=== PATIENT | female | born 1945 ===

== ENCOUNTER 2020-05-19 09:57 | Outpatient (REF) | payer MEDICARE, MEDICAID, SELFPAY ==
--- NOTE | 2020-05-19 | MR_ITS ---
EXAMINATION: MR ABDOMEN WITHOUT AND WITH CONTRAST CLINICAL INFORMATION: Cirrhosis. Rule out liver lesion. COMPARISON: Previous abdominal MRI September 2019 and previous abdominal ultrasounds most recent August 2019 CT of the abdomen and pelvis August 2010 TECHNIQUE: MR abdomen was performed without and with use of 7.5 mL intravenous Gadavist gadolinium contrast. Postcontrast images are performed in multiphase dynamic sequences. Imaging was performed in 3 planes. FINDINGS: LUNG BASES: The visualized lung bases are unremarkable. LIVER, GALLBLADDER, AND BILIARY TREE: The liver appears cirrhotic. There is a heterogeneous overall enhancement of the liver suggestive of cirrhosis. There may be several tiny liver cysts that are stable. The area of peripheral early arterial phase enhancement in the posterior lateral segment of the left lobe axial image 27 series 105 post contrast and appears slightly smaller compared to 2 x 1.7 cm on previous exam. Again, no signal abnormality is seen on precontrast sequences and this is is not appreciated on later postcontrast sequences. This again demonstrates rapid washout not seen on later postcontrast sequences and no definite pseudocapsule or enhancement. The small lesion in the anterior peripheral lateral segment of the left lobe of the liver on September 2019 exam is no longer appreciated. There is similar-appearing 5 mm small area of early arterial enhancement in the peripheral anterior segment of the right lobe of the liver axial image 37 series series 105 that is stable and has similar signal and contrast enhancement pattern to the previously mentioned liver lesion. No new liver lesion is seen. There is increased signal seen dependently in the gallbladder questionable for sludge or possible tiny gallstones. The gallbladder bladder does not appear distended. The gallbladder wall is normal in the gallbladder is normal in size. There is no intra or extrahepatic biliary duct dilatation. PANCREAS: Unremarkable. SPLEEN: Normal. ADRENAL GLANDS: Normal. KIDNEYS AND URETERS: The kidneys are normal in size, shape, and enhance symmetrically. No hydronephrosis. No perinephric stranding. GASTROINTESTINAL TRACT: No bowel obstruction. No ascites or fluid collection. ABDOMINAL WALL: No significant hernia is appreciated. LYMPH NODES: No lymphadenopathy. VASCULAR: Unremarkable. The portal veins and hepatic veins are patent. OSSEOUS STRUCTURES: Marrow signal normal. MR/MR abdomen wo/w con IMPRESSION: Cirrhotic-appearing liver. Slight interval decrease in size in the area of early arterial phase enhancement in the posterior lateral segment of the left lobe of the liver from September 2019 and stable similar-appearing area of early arterial phase enhancement in the peripheral anterior segment of the right lobe the liver. The third area of early arterial phase enhancement in the anterior lateral segment of the left lobe liver on September 2019 exam is no longer seen. Tiny liver cysts. No suspicious liver lesion seen. Depending on clinical factors, continued MR imaging follow-up in 6-12 months recommended. Sludge or small gallstones in the gallbladder.
[2020-05-19 10:12] LABS: MANUAL DIFF FLAG NO
[2020-05-19 10:17] LABS: Basophils Absolute Auto 0.1 X10*3/uL (0.0-0.2); Basophils Percent Auto 0.9 % (0-2); Eosinophils Absolute Auto 0.2 X10*3/uL (0.0-0.4); Eosinophils Percent Auto 2.8 % (0-4); Hematocrit 45.6 % (37-47); Hemoglobin 14.8 g/dl (12.0-16.0); Imm Gran Abs Auto 0.01 X10*3/uL (0.00-0.03); Imm Gran Pct Auto 0.1 % (0.0-0.4); Lymphocytes Absolute Auto 3.2 X10*3/uL (1.2-4.9); Lymphocytes Percent Auto 39.1 % (20-40); Mean Corpuscular HGB Conc 32.5 g/dl (31.0-35.0); Mean Corpuscular Hemoglobin 29.4 pg (27.0-33.0); Mean Corpuscular Volume 90.5 fL (80-98); Mean Platelet Volume 12.4 fL (9.4-12.3); Monocytes Absolute Auto 0.8 X10*3/uL (0.1-1.2); Neutrophils Absolute Auto 3.9 X10*3/uL (2.0-8.3); Neutrophils Percent Auto 47.1 % (45-73); Platelet Count 145 X10*3/uL (160-400); Red Blood Count 5.04 X10*6/uL (4.20-5.50); Red Cell Distribution Width 14.9 % (11.0-16.0); White Blood Count 8.2 X10*3/uL (4.8-10.8)
[2020-05-19 10:24] LABS: INTERNATIONAL NORM RATIO 1.3 (0.9-1.1); Prothrombin Time 15.5 SEC (10.8-13.0)
[2020-05-19 10:45] LABS: Alanine Aminotransferase 94 U/L (0-31); Albumin Level 4.1 g/dL (3.5-5.0); Alkaline Phosphatase 178 U/L (39-117); Aspartate Amino Transferase 102 U/L (5-31); Bilirubin Direct 0.6 mg/dL (0.0-0.5); Bilirubin Total 1.5 mg/dL (0.0-1.0); Blood Urea Nitrogen 13 mg/dL (9-16); Estimated Glomerular Filt Rate > 60; Total Protein 8.8 g/dL (6.5-8.0)
[2020-05-20 12:02] LABS: Alpha Fetoprotein 11.3 ng/mL
== END 2020-05-19 09:58 | disposition home or self-care (01) ==
LOC: HO.MRI 09:57
PROVIDERS: PCP Internal Medicine; Visit Provider Internal Medicine
DX: R77.2 Abnormality of alphafetoprotein (principal); R93.2 Abnormal findings on diagnostic imaging of liver and biliary tract; K74.60 Unspecified cirrhosis of liver
CPT/HCPCS: 36415; 74183; 80076; 82105; 82565; 84520; 85025; 85610; A9585

== ENCOUNTER 2020-06-25 06:59 | Day surgery (SDC) | payer MEDICARE, MEDICAID, SELFPAY ==
[2020-06-18 13:19] VITALS: BMI 34.4
[2020-06-18 13:57] VITALS: BMI 34.4
[2020-06-25 07:11] VITALS: BP 177/84; PULSE 63; RESP 18; TEMP 36; O2SAT 96
--- NOTE | 2020-06-25 07:27 | P.CONAN_ITS ---
[facility] Past Medical History Medical History (Updated 06/18/20 @ 13:18 by Nadia Andrews) Cirrhosis Depression Elevated cholesterol GERD (gastroesophageal reflux disease) History of fatty infiltration of liver HTN (hypertension) Surgical History Surgical History (Updated 06/18/20 @ 13:24 by Nadia Andrews) H/O colonoscopy History of carpal tunnel release History of liver biopsy Hx of breast biopsy Hx of tubal ligation Social History Social History Are you a primary clinical manager home care to a significant other at home: No Do you presently have visiting nurse or other home services: No Smoking Status: Former smoker Smoked in Last 30 Days: No Smoking Quit Date: 2005 Use of substances other than those prescribed or required for medical reasons: No Have you been hit, kicked, punched, or otherwise hurt by someone within the past year? If so, by whom?: No Advance Directives Information Provided: No Recently lost weight without trying: No Meds Allergies Allergy/AdvReac Type Severity Reaction Status Date / Time No Known Allergies Allergy Mild NONE Verified 06/18/20 13:24 Active Medications: Current Medications Generic Name Dose Route Start Last Admin Trade Name Freq PRN Reason Stop Dose Admin Lactated Ringer's 1,000 mls @ 50 mls/hr 06/25/20 07:30 Lr IV .Q20H NICKIE Ondansetron HCl 4 mg 06/25/20 07:26 Ondansetron Hcl 4 Mg/2 Ml Vial IVPUSH ONCE PRN Nausea and Vomiting Sodium Biphosphate/Sodium Phosphate 133 ml 06/25/20 06:11 Sodium Phosphate,[place]-Dibasic 133 Ml Enema GA ONCE PRN Poor Colonoscopy Prep Results Home Medications Medication Instructions Recorded Confirmed Last Taken Type metoprolol tartrate 1 tab PO BID 06/18/20 06/18/20 Unknown History oxycodone 1 tab PO Q8H PRN 06/18/20 06/18/20 Unknown History trazodone 1 tab PO BEDTIME 06/18/20 06/18/20 Unknown History ursodiol 2 cap PO BID 06/18/20 06/18/20 Unknown History valsartan-hydrochlorothiazide 1 tab PO QAM 06/18/20 06/18/20 Unknown History Exam Exam Date and Time: June 25, 2020 0727 Height,Weight and Vital Signs: Height 4 ft 9 in Weight 72.121 kg Last Vital Signs Temp 96.8 F 06/25/20 07:11 Pulse 63 06/25/20 07:11 Resp 18 06/25/20 07:11 BP 177/84 H 06/25/20 07:11 Pulse Ox 96 06/25/20 07:11 Airway Mallampati Class: II TM Dist: >3cm Neck ROM: Full Heart: RRR Lungs: tA. L Assessment and Plan Assessment Anesthesia Assessment: Anesthesia Plan Discussed and Chart Reviewed Final Anesthetic Review NPO: Yes (Sip water with med) ASA Class: II Final Preanesthetic Review: No Changes in Pt Med Stat and Consent Obtained/Reviewed Patient Risk: Intermediate Procedure Risk: Intermediate Anesthetic Plan Anesthetic Plan: MAC: Disposition: Standard PACU
[2020-06-25] MEDS: Lactated Ringers 1,000 ML 50 ML IV (07:52)
[2020-06-25 09:08] VITALS: BP 117/72; PULSE 63; RESP 16; TEMP 36; O2SAT 95
--- NOTE | 2020-06-25 09:14 | PM.OP ---
Brief Operative Note Date of Service: 06/25/20 Pre-op diagnosis: Cirrhosis Post-op diagnosis: other (Gastritis, Hiatal hernia) Procedure: EGD with biopsy Surgeon: Chico Johns Anesthesia: MAC Estimated blood loss (mL): 3.0 Pathology: other (A. Gastric antrum) Condition: stable Disposition: PACU
[2020-06-25 09:25] VITALS: BP 146/81; PULSE 65; RESP 18; TEMP 36.1; O2SAT 96
--- NOTE | 2020-06-25 09:30 | OP_ITS ---
SURGEON: Chico Johns MD INDICATIONS: The patient presents for evaluation of underlying history of cirrhosis and to rule out esophageal varices. Full consent has been obtained from her for this, including risks of bleeding and perforation. PREOPERATIVE DIAGNOSIS: Cirrhosis. POSTOPERATIVE DIAGNOSIS: PROCEDURE PERFORMED: Esophagogastroduodenoscopy with biopsies. ESTIMATED BLOOD LOSS: COMPLICATIONS: ANESTHESIA: Monitored anesthesia care. ASSISTANTS: SPECIMENS: POSTOPERATIVE DIAGNOSES: Cirrhosis, gastritis, hiatal hernia. DESCRIPTION OF PROCEDURE: The patient was placed in the left lateral decubitus position. The Olympus video gastroscope was passed in the posterior oropharynx and upper esophagus under direct vision. The scope was passed slowly into the distal esophagus. The gastroesophageal junction appeared at 36 cm. There was no sign of any esophagitis, varices, nor Ortiz's esophagus. The scope was entered into the stomach. There was a small hiatal hernia. The scope was advanced to pylorus and duodenum was cannulated to the descending portion. The duodenum including the bulb appeared normal without mass or ulceration. The scope was withdrawn back in the stomach. The gastric antrum and body had some areas of erythema, but no erosions or ulceration. There was good peristalsis. Biopsies were obtained from the gastric antrum. The scope was retroflexed visualizing the proximal stomach carefully which appeared normal without any sign of varices, gastropathy, mass or ulceration. The scope was straightened and withdrawn back in the esophagus. The entire esophagus was inspected with insufflation of air and there was no sign of any varices nor mucosal abnormalities. The scope was withdrawn from the patient. She tolerated the procedure well and was returned to the recovery area in stable condition. IMPRESSION: 1. Mild changes of gastritis. 2. Small hiatal hernia. 3. No sign of any varices nor gastropathy. PLAN: The results of the biopsy will be checked. At this point, she is asymptomatic in regard to any GI issues and at this point, I would hold off on any administration of acid suppression since she has no erosions, ulcerations, nor any symptoms. She has been advised to stop the previous use of her meloxicam. She is supposed to have repeat LFTs this month as she had stopped her statin medication in April due to elevated LFTs. She also has an appointment in July at [facility] and will see me in several months for a followup visit. This has been discussed with her family. MD URIEL Arguello/CHENTE / [id number] MTDD
== END 2020-06-25 10:13 | disposition home or self-care (01) ==
PROVIDERS: PCP Internal Medicine; Visit Provider Internal Medicine
PROC: 0DJ08ZZ Inspection of Upper Intestinal Tract, Via Natural or Artificial Opening Endoscopic (ICD-10-PCS; CPT 43235; principal; 2020-06-25 08:20)
DX: K74.60 Unspecified cirrhosis of liver (principal); K29.50 Unspecified chronic gastritis without bleeding; K44.9 Diaphragmatic hernia without obstruction or gangrene; K21.9 Gastro-esophageal reflux disease without esophagitis; I10 Essential (primary) hypertension; Z79.899 Other long term (current) drug therapy
CPT/HCPCS: 43239; 88305; 88342

== ENCOUNTER 2020-08-16 08:01 | Outpatient (REF) | payer MEDICARE, MEDICAID, SELFPAY | END 2020-08-16 08:02 | disposition home or self-care (01) | LOC: HO.CT 08:01 | PROVIDERS: Visit Provider Internal Medicine Gastroenterology | DX: Z13.89 Encounter for screening for other disorder (principal) ==

== ENCOUNTER 2020-08-23 08:46 | Outpatient (REF) | payer MEDICARE, MEDICAID, SELFPAY ==
[2020-08-23 10:45] LABS: INTERNATIONAL NORM RATIO 1.3 (0.9-1.1)
[2020-08-23 11:06] LABS: Alanine Aminotransferase 36 U/L (0-31); Alkaline Phosphatase 123 U/L (39-117); Anion Gap 13 (12-20); Aspartate Amino Transferase 42 U/L (5-31); Bilirubin Total 1.5 mg/dL (0.0-1.0); Blood Urea Nitrogen 11 mg/dL (9-16); Calcium 9.3 mg/dL (8.4-10.2); Carbon Dioxide 28 mmol/L (22-29); Chloride 106 mmol/L (96-108); Estimated Glomerular Filt Rate > 60; Glucose Random 108 mg/dL (60-115); Potassium 4.2 mmol/L (3.3-5.1); Sodium 143 mmol/L (135-145); Total Protein 8.1 g/dL (6.5-8.0)
== END 2020-08-23 08:47 | disposition home or self-care (01) ==
LOC: HO.LAB 08:46
PROVIDERS: PCP Internal Medicine; Visit Provider Internal Medicine Gastroenterology
DX: K75.81 Nonalcoholic steatohepatitis (NASH) (principal); K74.60 Unspecified cirrhosis of liver
CPT/HCPCS: 36415; 80053; 85610; 86900

== ENCOUNTER 2020-08-27 08:02 | Outpatient (REF) | payer MEDICARE, MEDICAID, SELFPAY ==
--- NOTE | ~2020-08-27 | CT_ITS ---
EXAMINATION: CT OF THE CHEST WITH IV CONTRAST CT ABDOMEN AND PELVIS WITH AND WITHOUT IV CONTRAST CLINICAL INFORMATION: Preliver transplant evaluation COMPARISON: Previous MRI of the abdomen April 2020 TECHNIQUE: Axial images through the chest with IV contrast. Axial images through the abdomen and pelvis with and without IV contrast/ venous phase imaging and following oral contrast. Arterial phase imaging through the liver was not obtained. Sagittal and coronal reconstructions on the technologist's workstation were performed. 85 mL of Omnipaque [address] examination was performed using dose optimization techniques as appropriate, variously including the following: *Automated exposure control *Adjustment of mA and/or kV according to patient size (this includes techniques or standardized protocols for targeted exams where dose is matched to indication/reason for exam; i.e. extremities or head) *Use of iterative reconstruction technique DLP: 912 mGy-cm. FINDINGS: Chest: There are mild increased peripheral interstitial markings with interlobular septal thickening. The lungs are otherwise clear. Heart is enlarged. There is no pericardial effusion. The thoracic aorta is normal in caliber. There are no enlarged hilar or mediastinal lymph nodes. There is no pleural effusion or pleural thickening. No chest wall mass or enlarged axillary lymph nodes are seen. Abdomen and Pelvis: There are cirrhotic changes of the liver. There are several small 4 mm low-attenuation lesions in the lateral segment of the left lobe liver, axial image 19 and axial image 35 series 4, and in the posterior segment of the right lobe, axial image 46 series 4, probably representing small cysts. This is similar to previous MRI exams. No other focal liver lesion is seen. There is a small peripheral calcification in the right lobe of the liver, axial image 49 and 44 series 4. No other focal liver lesion is seen. The hepatic veins and portal veins are patent. There is dependent material seen in the gallbladder suggestive of sludge and tiny gallstone. The gallbladder wall is normal. There is no biliary duct dilatation. Pancreas is normal. The spleen is normal. The adrenal glands and kidneys are normal. The bladder is not optimally distended but appears unremarkable. Small and large bowel is unremarkable. The appendix is unremarkable. The stomach is not optimally distended. No ascites or adenopathy is seen. There are small varices. There is a recannulized paraumbilical vein. There is evidence of atherosclerotic disease. No hernia is seen. There are small bilateral ovarian calcifications. The uterus and adnexa are otherwise unremarkable. Review of bone windows demonstrates degenerative changes of the spine. CT/CT abdomen pelvis wo/w con IMPRESSION: Chest: Increased peripheral interstitial markings questionable for mild interstitial lung disease. Enlarged heart. Abdomen and Pelvis: Cirrhotic-appearing liver. Small liver cysts. No other focal liver lesion appreciated. Varices. No ascites. Tiny gallstone and sludge in the gallbladder.
[2020-08-27] MEDS: iohexoL 350 MG/ML 100 ML INFUS..BTL IV (09:14)
== END 2020-08-27 08:03 | disposition home or self-care (01) ==
LOC: HO.CT 08:02
PROVIDERS: Visit Provider Internal Medicine Gastroenterology
DX: Z01.818 Encounter for other preprocedural examination (principal)
CPT/HCPCS: 71260; 74178; Q9967

== ENCOUNTER 2021-01-27 13:01 | Outpatient (REF) | payer MEDICARE, SELFPAY ==
--- NOTE | ~2021-01-27 | XR_ITS ---
EXAMINATION: XR CHEST CLINICAL INFORMATION: Cough COMPARISON: Previous chest CT August 2020 and chest x-ray most recent June 2014 TECHNIQUE: 2 views of the chest were obtained. FINDINGS: The cardiac and mediastinal contours are normal. The lungs are clear. There is no pleural effusion or pneumothorax. There are degenerative changes of the spine. XR/XR chest 2V IMPRESSION: No evidence for acute disease in the chest.
== END 2021-01-27 13:02 | disposition home or self-care (01) ==
LOC: HO.XRAY 13:01
PROVIDERS: PCP Internal Medicine; Visit Provider Internal Medicine
DX: R05.9 Cough, unspecified (principal)
CPT/HCPCS: 71046

== ENCOUNTER 2021-03-11 12:37 | Outpatient (REF) | payer MEDICARE, SELFPAY ==
--- NOTE | ~2021-03-11 | MM_ITS ---
EXAMINATION: MM SCREENING DIGITAL BREAST TOMOSYNTHESIS, BILATERAL CLINICAL INFORMATION: Screening. Asymptomatic. The lifetime risk of breast cancer based on the Tyrer-Cuzick Model is 4%. COMPARISON: Mammography: 12/18/2019, 05/14/2018, 05/08/2017, 05/01/2016 TECHNIQUE: Digital breast tomosynthesis is performed in both the craniocaudal and mediolateral oblique views along with computer-aided detection (CAD). Synthesized 2D images are generated from the tomosynthesis. Additional left MLO view is provided. FINDINGS: There are scattered areas of fibroglandular density (ACR BI-RADS breast composition Category b). There are no significant masses, abnormal calcifications, or other abnormalities. MM/MM tomosynthesis screening BI IMPRESSION: No mammographic evidence of malignancy. ASSESSMENT: BI-RADS 1: Negative RECOMMENDATION: Routine annual mammography screening. This patient's information was entered into a reminder system with a target due date for their next mammogram.
== END 2021-03-11 12:38 | disposition home or self-care (01) ==
LOC: HO.MAMMO 12:37
PROVIDERS: Visit Provider Internal Medicine
DX: Z12.31 Encounter for screening mammogram for malignant neoplasm of breast (principal)
CPT/HCPCS: 77063; 77067

== ENCOUNTER 2021-05-17 11:43 | Outpatient (REF) | payer MEDICARE, MEDICAID, SELFPAY ==
[2021-05-17 12:16] LABS: MANUAL DIFF FLAG NO
[2021-05-17 12:37] LABS: Basophils Absolute Auto 0.1 X10*3/uL (0.0-0.2); Basophils Percent Auto 0.6 % (0-2); Eosinophils Absolute Auto 0.3 X10*3/uL (0.0-0.4); Eosinophils Percent Auto 2.9 % (0-4); Hematocrit 46.7 % (37.0-47.0); Hemoglobin 15.3 g/dl (12.0-16.0); Imm Gran Abs Auto 0.04 X10*3/uL (0.00-0.03); Imm Gran Pct Auto 0.4 % (0.0-0.4); Lymphocytes Absolute Auto 3.5 X10*3/uL (1.2-4.9); Lymphocytes Percent Auto 31.1 % (20-40); Mean Corpuscular HGB Conc 32.8 g/dl (31.0-35.0); Mean Corpuscular Volume 88.4 fL (80.0-98.0); Mean Platelet Volume 11.4 fL (9.4-12.3); Monocytes Absolute Auto 1.1 X10*3/uL (0.1-1.2); Monocytes Percent Auto 9.4 % (2-11); Neutrophils Absolute Auto 6.3 x10*3/uL (2.0-8.3); Neutrophils Percent Auto 55.6 % (45-73); Platelet Count 145 X10*3/uL (160-400); Red Blood Count 5.28 X10*6/uL (4.20-5.50); Red Cell Distribution Width 14.1 % (11.0-16.0); White Blood Count 11.3 X10*3/uL (4.8-10.8)
[2021-05-17 12:42] LABS: INTERNATIONAL NORM RATIO 1.3 (0.9-1.1); Prothrombin Time 14.6 SEC (9.9-13.0)
[2021-05-17 13:03] LABS: Alanine Aminotransferase 58 U/L (0-31); Alkaline Phosphatase 155 U/L (39-117); Aspartate Amino Transferase 55 U/L (5-31); Bilirubin Direct 0.6 mg/dL (0.0-0.5); Bilirubin Total 1.4 mg/dL (0.0-1.0); Total Protein 8.5 g/dL (6.5-8.0)
== END 2021-05-17 11:44 | disposition home or self-care (01) ==
LOC: HO.LAB 11:43
PROVIDERS: Absent Provider Internal Medicine; PCP Internal Medicine; Visit Provider Internal Medicine
DX: K74.60 Unspecified cirrhosis of liver (principal)
CPT/HCPCS: 36415; 80076; 85025; 85610

== ENCOUNTER 2021-06-24 14:36 | Outpatient (REF) | payer MEDICARE, MEDICAID, SELFPAY ==
--- NOTE | 2021-06-24 | PFT_ITS ---
FLOWS: FEV1 81% of predicted at 1.30 L. FVC 75% of predicted at 1.61 L. FEV1 to FVC ratio of 0.81. No bronchodilator response except in small to medium airways. LUNG VOLUMES: Total lung capacity 122% of predicted at 5.07 L. Residual volume 181% of predicted at 3.58 L. Slow vital capacity 68% of predicted at 1.49 L. Expiratory reserve volume 28% of predicted at 0.11 L. Diffusion capacity is mildly decreased, diffusion capacity corrects to normal after adjustment for alveolar ventilation. IMPRESSION: No obstructive or restrictive ventilatory defect. No bronchodilator response except in small to medium airways. Increased total lung capacity suggests hyperinflation. Increased residual volume suggests air trapping. Decreased expiratory reserve volume suggests extrathoracic restriction, likely secondary to abdominal obesity. MD FAVIAN Rich/MODL / [id number]
== END 2021-06-24 14:37 | disposition home or self-care (01) ==
LOC: HO.RESP 14:36
PROVIDERS: PCP Internal Medicine; Visit Provider Internal Medicine
DX: R05.9 Cough, unspecified (principal)
CPT/HCPCS: 94060; 94727; 94729

== ENCOUNTER 2021-07-01 06:20 | Day surgery (SDC) | payer MEDICARE, MEDICAID, SELFPAY ==
[2021-06-27 11:29] VITALS: BMI 30.5
[2021-07-01 06:25] VITALS: BP 167/63; PULSE 67; RESP 17; TEMP 36.1; O2SAT 96
[2021-07-01] MEDS: Albuterol Sulfate (0.083%) 2.5 MG/3 ML VIAL.NEB INHALE (06:58)
[2021-07-01 06:59] VITALS: PULSE 92; RESP 18; O2SAT 95
[2021-07-01] MEDS: Lactated Ringers 1,000 ML 50 ML IVCONT (07:01)
--- NOTE | 2021-07-01 07:12 | HO.ANESPROP2 ---
HPI - Anesthesia Eval Consult details Narrative: Cirrhosis of the liver [facility] Past Medical History Medical History (Updated 07/01/21 @ 06:45 by Bonita Muhammad, RN) Cirrhosis Depression Elevated cholesterol GERD (gastroesophageal reflux disease) History of fatty infiltration of liver HTN (hypertension) Liver transplant candidate Family History Family history of problems with anesthesia: No Surgical History Surgical History (Updated 06/27/21 @ 11:25 by Nadia Andrews RN) H/O colonoscopy History of carpal tunnel release History of esophagogastroduodenoscopy (EGD) History of liver biopsy Hx of breast biopsy Hx of tubal ligation History of Problems with Anesthesia: No Social History Social History Are you a primary healthcare insurance sales agent to a significant other at home: No Do you presently have visiting nurse or other home services: No Patient Tobacco Use Status: Never used Tobacco Are you DNR?: No Advance Directives: No Advance Directives Information Provided: Yes Recently lost weight without trying: No Nutrition Risks: No Nutritional Risk Meds Allergies Allergy/AdvReac Type Severity Reaction Status Date / Time No Known Allergies Allergy Mild NONE Verified 06/25/20 08:08 Active Medications: Current Medications Lactated Ringer's (Lr) 1,000 mls @ 50 mls/hr IVCONT .Q20H NICKIE Last Admin: 07/01/21 07:01 Dose: 50 mls/hr Documented by: Sodium Biphosphate/Sodium Phosphate (Sodium Phosphate,[place]-Dibasic 133 Ml Enema) 133 ml [place] ONCE PRN PRN Reason: Poor Colonoscopy Prep Results Home Medications Medication Instructions Recorded Confirmed Last Taken Type metoprolol tartrate 25 mg tablet 1 tab PO BID 06/18/20 06/27/21 07/01/21 History oxycodone 5 mg tablet 1 tab PO Q8H PRN 06/18/20 06/27/21 Unknown History trazodone 100 mg tablet 1 tab PO BEDTIME 06/18/20 06/27/21 Unknown History ursodiol 300 mg capsule 2 cap PO BID 06/18/20 06/27/21 06/25/20 06:00 History valsartan 160 1 tab PO QAM 06/18/20 06/27/21 Unknown History mg-hydrochlorothiazide 25 mg tablet sertraline 50 mg tablet 1 tab PO QAM 06/27/21 06/27/21 07/01/21 History alendronate 70 mg tablet 1 tab PO QWEEK 07/01/21 07/01/21 Unknown History Exam Exam Date and Time: July 01, 2021 0712 Height,Weight and Vital Signs: Height 4 ft 9.75 in Weight 65.771 kg Last Vital Signs Temp 97 F 07/01/21 06:25 Pulse 92 07/01/21 06:59 Resp 18 07/01/21 06:59 BP 167/63 H 07/01/21 06:25 Pulse Ox 96 07/01/21 06:25 Airway Mallampati Class: II TM Dist: >3cm Neck ROM: Full Loose/Missing/Broken Teeth: Yes (many missing poor dentition) Heart: [id number] Lungs: cta b/l Assessment and Plan Assessment Anesthesia Assessment: Anesthesia Plan Discussed and Chart Reviewed Final Anesthetic Review Family History of Problems with Anesthesia: No History of Problems with Anesthesia: No NPO: Yes ASA Class: IV Final Preanesthetic Review: No Changes in Pt Med Stat, Meds/Allgs Chart Reviewed, Consent Obtained/Reviewed and Anes Risks/Benef Reviewed Patient Risk: High Procedure Risk: Low Assessment/Block/Sedation in SS: Assess/Block/Sedation-SS Anesthetic Plan Anesthetic Plan: MAC: and Agree w/ Assess. and Plan Disposition: Standard PACU
[2021-07-01 08:21] VITALS: BP 113/50; PULSE 67; RESP 16; TEMP 36.3; O2SAT 97
--- NOTE | 2021-07-01 08:26 | P.BOP_ITS ---
Brief Operative Note Date of Service: 07/01/21 Pre-op diagnosis: Screening Post-op diagnosis: other (Diverticulosis) Procedure: Colonoscopy to the cecum Surgeon: Chico Johns Anesthesia: MAC Was an Topographical Drafter used for this Procedure?: No Estimated blood loss (mL): 0 Pathology: none sent Condition: stable Disposition: PACU
[2021-07-01 08:36] VITALS: BP 123/64; PULSE 69; RESP 16; TEMP 36.3; O2SAT 97
--- NOTE | 2021-07-01 08:40 | OP_ITS ---
SURGEON: Chico Johns MD INDICATIONS: The patient presents for evaluation of colorectal cancer screening. Full consent has been obtained from her for this, including risks of bleeding and perforation. PREOPERATIVE DIAGNOSIS: Colorectal cancer screening. POSTOPERATIVE DIAGNOSIS: PROCEDURE PERFORMED: ESTIMATED BLOOD LOSS: COMPLICATIONS: ANESTHESIA: Monitored anesthesia care. ASSISTANTS: SPECIMENS: PROCEDURE: Colonoscopy to the cecum. POSTOPERATIVE DIAGNOSES: Colorectal cancer screening, sigmoid diverticulosis, internal hemorrhoids, limited prep. DESCRIPTION OF PROCEDURE: The patient was placed in the left lateral decubitus position. The digital rectal exam revealed no abnormalities. The Olympus video pediatric colonoscope was entered into the rectum and advanced easily to the cecum. Once in the cecum, I did identify normal-appearing cecal pouch with appendiceal orifice and a normal-appearing ileocecal valve. The entire cecum and ileocecal valve appeared normal. There was transillumination of light deep in the right lower quadrant. The scope was slowly withdrawn assessing all mucosal surfaces carefully. Preparation in the descending and sigmoid colon were limited due to retained stool and liquid. I did not visualize any sign of polyps, colitis, nor angiodysplasias. There was a mild amount of sigmoid diverticulosis. In the rectum, scope was retroflexed visualizing small internal hemorrhoids, but no other pathology. The rectal mucosa appeared normal. The scope was straightened and withdrawn from the patient. She tolerated the procedure well and was returned to recovery area in stable condition. IMPRESSION: 1. Mild sigmoid diverticulosis. 2. Small internal hemorrhoids. 3. Limited prep in the descending and sigmoid colon. PLAN: Given the negative exam and no particular symptoms, as well as previous colonoscopies that were negative in 2010 and 2015, I do not think she will need any further screening colonoscopies. She will continue to be followed by [facility] for evaluation of questionable liver lesions and her underlying cirrhosis. She will see me in the fall for a followup visit. MD URIEL Arguello/CHENTE / [id number]
== END 2021-07-01 09:18 | disposition home or self-care (01) ==
PROVIDERS: PCP Internal Medicine; Visit Provider Internal Medicine
PROC: 0DJD8ZZ Inspection of Lower Intestinal Tract, Via Natural or Artificial Opening Endoscopic (ICD-10-PCS; CPT 45378; principal; 2021-07-01 07:30)
DX: Z12.11 Encounter for screening for malignant neoplasm of colon (principal); Z86.010 Personal history of colon polyps; K57.30 Diverticulosis of large intestine without perforation or abscess without bleeding; K64.8 Other hemorrhoids; K74.60 Unspecified cirrhosis of liver; K76.0 Fatty (change of) liver, not elsewhere classified; K21.9 Gastro-esophageal reflux disease without esophagitis; E78.5 Hyperlipidemia, unspecified; E11.9 Type 2 diabetes mellitus without complications; I10 Essential (primary) hypertension; F32.9 Major depressive disorder, single episode, unspecified; Z79.899 Other long term (current) drug therapy; Z86.16 Personal history of COVID-19
CPT/HCPCS: G0105; 94640

== ENCOUNTER 2021-07-11 13:25 | Outpatient (REF) | payer MEDICARE, MEDICAID, SELFPAY ==
--- NOTE | ~2021-07-11 | XR_ITS ---
EXAMINATION: XR CHEST CLINICAL INFORMATION: Cough COMPARISON: Previous chest x-ray January 2021 TECHNIQUE: 2 views of the chest were obtained. FINDINGS: The cardiac and mediastinal contours are stable. There are increased central bronchial markings. There are increased markings in the right upper lobe questionable for bronchopneumonia. The lungs are otherwise clear. There is no pleural effusion. There are degenerative changes of the spine. XR/XR chest 2V IMPRESSION: Increased central bronchial markings suggestive of bronchitis and right upper lobe bronchopneumonia.
== END 2021-07-11 13:26 | disposition home or self-care (01) ==
LOC: HO.XRAY 13:25
PROVIDERS: PCP Internal Medicine; Visit Provider Internal Medicine
DX: R05.9 Cough, unspecified (principal)
CPT/HCPCS: 71046

== ENCOUNTER → 2021-08-09 14:30 | Outpatient (BNVA) | payer OTHER, SELFPAY | PROVIDERS: PCP Internal Medicine; Visit Provider Internal Medicine | DX: R05.3 Chronic cough (principal); U09.9 Post COVID-19 condition, unspecified; J84.9 Interstitial pulmonary disease, unspecified | CPT/HCPCS: 99202 ==

== ENCOUNTER → 2021-09-14 15:29 | Outpatient (BNVA) | payer MEDICARE, MEDICAID, SELFPAY | PROVIDERS: PCP Internal Medicine; Visit Provider Internal Medicine | DX: R05.3 Chronic cough (principal); U09.9 Post COVID-19 condition, unspecified; J84.9 Interstitial pulmonary disease, unspecified | CPT/HCPCS: 99212 ==

== ENCOUNTER 2021-09-27 14:40 | Outpatient (REF) | payer MEDICARE, MEDICAID, SELFPAY ==
--- NOTE | ~2021-09-27 | MR_ITS ---
EXAMINATION: MR ABDOMEN WITHOUT AND WITH CONTRAST CLINICAL INFORMATION: Fatty change of the liver COMPARISON: CT abdomen pelvis 08/27/2020, MR abdomen 05/19/2020 TECHNIQUE: MR abdomen was performed without and with use of 7 mL intravenous Gadavist gadolinium contrast. Postcontrast images are performed in multiphase dynamic sequences. Imaging was performed in 3 planes. FINDINGS: LUNG BASES: The visualized lung bases are unremarkable. LIVER, GALLBLADDER, AND BILIARY TREE: Cirrhotic morphology of the liver. Several subcentimeter benign LR 1 hyperintense hepatic cysts. No significant change in a 5 mm arterially hyperenhancing observation in the lateral aspect of the right hepatic lobe, 100:33. A 1.7 cm arterially hyperenhancing observation in the posterior aspect of the left hepatic lobe, 100:32 previously 1.6 cm not significantly changed. No washout or pseudocapsule. No new hepatic observation. PANCREAS: Unremarkable. SPLEEN: Unremarkable. ADRENAL GLANDS: Unremarkable. KIDNEYS AND URETERS: Unremarkable. GASTROINTESTINAL TRACT: Unremarkable. ABDOMINAL WALL: Unremarkable. LYMPH NODES: No lymphadenopathy. VASCULAR: Recannulized periumbilical vein. OSSEOUS STRUCTURES: Unremarkable. MR/MR abdomen wo/w con IMPRESSION: Cirrhotic morphology of the liver with 2 arterially hyperenhancing LI RADS 3 observations not appreciably changed from prior measuring up to 1.7 cm. No washout or pseudocapsule. Recommend 3-6 month follow-up MR to assess stability.
== END 2021-09-27 14:41 | disposition home or self-care (01) ==
LOC: HO.MRI 14:40
PROVIDERS: Visit Provider Internal Medicine Gastroenterology
DX: K76.0 Fatty (change of) liver, not elsewhere classified (principal)
CPT/HCPCS: 74183; A9585

== ENCOUNTER → 2022-01-18 15:45 | Outpatient (BNVA) | payer MEDICARE, MEDICAID, SELFPAY | PROVIDERS: PCP Internal Medicine; Visit Provider Internal Medicine | DX: U09.9 Post COVID-19 condition, unspecified (principal); R05.3 Chronic cough; J84.9 Interstitial pulmonary disease, unspecified | CPT/HCPCS: 99212 ==

== ENCOUNTER 2022-06-08 11:03 | Outpatient (REF) | payer MEDICARE, MEDICAID, SELFPAY ==
--- NOTE | ~2022-06-08 | MR_ITS ---
EXAMINATION: MR ABDOMEN WITHOUT AND WITH CONTRAST CLINICAL INFORMATION: Cirrhosis, liver mass COMPARISON: MR abdomen 09/27/2021 TECHNIQUE: MRI of the abdomen before and after the IV administration of 6.5 mL of Gadavist was obtained using routine sequences. FINDINGS: LUNG BASES: The visualized lung bases are unremarkable. KIDNEYS AND URETERS: Unremarkable. GALLBLADDER: Unremarkable. LIVER AND BILIARY TREE: Nodular hepatic contour compatible with cirrhosis. Scattered T2 hyperintense benign-appearing hepatic cysts. Loss of signal on opposed phase imaging compatible with hepatic steatosis. Previously seen left hepatic lobe obscuration longer identified and in retrospect may have reflected technical artifact. Increased size of a 0.9 cm hyper enhancing observation in the right hepatic lobe, 100:28 without washout or pseudocapsule, previously 0.6 cm. This does not meet criteria for threshold growth.. No LI RADS 5 observations. No intra or extrahepatic biliary duct dilatation. PANCREAS: Unremarkable SPLEEN: Unremarkable ADRENAL GLANDS: Unremarkable GASTROINTESTINAL TRACT: Unremarkable. LYMPH NODES: No lymphadenopathy. VASCULAR: Recannulized periumbilical vein compatible with portal hypertension. ABDOMINAL WALL: Unremarkable. OSSEOUS STRUCTURES: Unremarkable. MR/MR abdomen wo/w con IMPRESSION: Cirrhotic liver with loss of signal suggesting hepatic steatosis. A 0.9 cm arterially hyperenhancing observation in the right hepatic lobe is increased in size from prior however does not meet criteria for threshold growth. No pseudocapsule or washout. This is a LI RADS 3 observation, intermediate probability of malignancy and a 3 to six-month follow-up MR is recommended. A second arterially hyperenhancing observation was no longer identified . Sequelae of portal hypertension including a recannulized periumbilical vein.
== END 2022-06-08 11:04 | disposition home or self-care (01) ==
LOC: HO.MRI 11:03
PROVIDERS: PCP Internal Medicine; Visit Provider Nurse Practitioner
DX: K75.81 Nonalcoholic steatohepatitis (NASH) (principal); K74.60 Unspecified cirrhosis of liver
CPT/HCPCS: 74183; A9585

== ENCOUNTER 2022-06-15 14:04 | Emergency (ER) | payer MEDICARE, MEDICAID, SELFPAY ==
--- NOTE | ~2022-06-15 | XR_ITS ---
EXAMINATION: XR CHEST CLINICAL INFORMATION: Shortness of breath COMPARISON: 07/11/2021 TECHNIQUE: 2 views of the chest were obtained. FINDINGS: The lungs are well expanded. There is no focal consolidation, edema, or effusion. No pneumothorax. The cardiomediastinal silhouette is within normal limits. No acute osseous abnormality. XR/XR chest 2V IMPRESSION: Clear lungs.
--- NOTE | 2022-06-15 14:40 | ED_ITS ---
HPI - General Adult General Chief complaint: Weakness Stated complaint: trembling Related Data Home Medications Medication Instructions Recorded Confirmed metoprolol tartrate 25 mg tablet 1 tab PO BID 06/18/20 01/18/22 oxycodone 5 mg tablet 1 tab PO Q8H PRN pain 06/18/20 01/18/22 trazodone 100 mg tablet 1 tab PO BEDTIME 06/18/20 01/18/22 ursodiol 300 mg capsule 2 cap PO BID 06/18/20 01/18/22 valsartan 160 1 tab PO QAM 06/18/20 01/18/22 mg-hydrochlorothiazide 25 mg tablet sertraline 50 mg tablet 1 tab PO QAM 06/27/21 01/18/22 alendronate 70 mg tablet 1 tab PO QWEEK 07/01/21 01/18/22 albuterol sulfate 2.5 mg/3 mL 2.5 mg inhalation Q4-6H PRN 08/09/21 01/18/22 (0.083 %) solution for nebulization albuterol sulfate 90 mcg/actuation 2 puff inhalation Q6H PRN 08/09/21 01/18/22 aerosol inhaler Previous Rx's Medication Instructions Recorded benzonatate 150 mg capsule 150 mg PO BID cough 30 days #60 08/09/21 caps Advair Diskus 500 mcg-50 mcg/dose 1 ea inhalation Q12H #60 ea 04/20/22 powder for inhalation (fluticasone propion-salmeterol) Allergies Allergy/AdvReac Type Severity Reaction Status Date / Time No Known Allergies Allergy Mild NONE Verified 01/18/22 16:05 [facility] Past Medical History Medical History Cirrhosis Cough Depression Elevated cholesterol GERD (gastroesophageal reflux disease) History of fatty infiltration of liver HTN (hypertension) ILD (interstitial lung disease) Liver transplant candidate Post-COVID chronic cough Surgical History H/O colonoscopy History of carpal tunnel release History of esophagogastroduodenoscopy (EGD) History of liver biopsy Hx of breast biopsy Hx of tubal ligation Social History Social History Are you a primary nurse care manager to a significant other at home: No Do you presently have visiting nurse or other home services: No Patient Tobacco Use Status: Never used Tobacco Advance Directives: Yes Advance Directives Information Provided: No Advance Directives on File: No Physical Exam ED Vital Signs: BMI result Body Mass Index 30.2 Course Course Course Narrative: This is an RME: Additional HPI, ROS, PE not included below will be deferred to primary provider. Patient is a 77 year old female with past medical history of osteoporosis, type 2 diabetes, depression, migraines, hypertension, hyper lipidemia, cirrhosis secondary to [place] who presents to the ED with family for evaluation of sudden onset of tremors this afternoon after eating lunch, crying. Complaining of feeling unwell, shortness of breath, weak, tired, tremulous. Denies chest pain, headache, dizziness, nausea, vomiting, ABD pain, constipation, diarrhea. Denies recent sick contacts. Plan: labs, urinalysis, CXR, EKG, viral testing Medical Decision Making Lab Data 06/15/22 14:59 06/15/22 14:59 Labs: Lab Results 06/15/22 06/15/22 06/15/22 Range/Units 14:59 14:59 14:59 WBC 8.6 (4.8-10.8) X10*3/uL RBC 4.73 (4.20-5.50) X10*6/uL Hgb 13.4 (12.0-16.0) g/dl Hct 41.9 (37.0-47.0) % MCV 88.6 (80.0-98.0) fL MCH 28.3 (27.0-33.0) pg MCHC 32.0 (31.0-35.0) g/dl RDW 13.9 (11.0-16.0) % Plt Count 111 L (160-400) X10*3/uL MPV 11.8 (9.4-12.3) fL Immature Gran % (Auto) 0.3 (0.0-0.4) % Neut % (Auto) 74.0 H (45-73) % Lymph % (Auto) 13.4 L (20-40) % [place] % (Auto) 11.5 H (2-11) % Eos % (Auto) 0.5 (0-4) % Baso % (Auto) 0.3 (0-2) % Lymph # (Auto) 1.2 (1.2-4.9) X10*3/uL [place] # (Auto) 1.0 (0.1-1.2) X10*3/uL Eos # (Auto) 0.0 (0.0-0.4) X10*3/uL Baso # (Auto) 0.0 (0.0-0.2) X10*3/uL Abs Immat Gran (auto) 0.03 (0.00-0.03) X10*3/uL Absolute Neuts (auto) 6.3 (2.0-8.3) x10*3/uL Absolute Nucleated RBC 0.000 (0.0-0.012) X10*3/uL Nucleated RBC % (auto) 0.0 (0.0-0.2) /100WBC Sodium 143 (135-145) mmol/L Potassium 3.9 (3.3-5.1) mmol/L Chloride 109 H (96-108) mmol/L Carbon Dioxide 24 (22-29) mmol/L Anion Gap 14 (12-20) BUN 10 (9-16) mg/dL Creatinine 0.95 (0.5-1.4) mg/dL Estim Creat Clear Calc 44.7 Estimated GFR 57 Random Glucose 201 H (60-115) mg/dL Calcium 9.2 (8.4-10.2) mg/dL Magnesium 1.9 (1.6-2.6) mg/dL Total Bilirubin 0.9 (0.0-1.0) mg/dL AST 49 H (5-31) U/L ALT 50 H (0-31) U/L Alkaline Phosphatase 119 H (39-117) U/L Troponin I High Sens 16.9 (<3.5-17.0) ng/L Total Protein 7.6 (6.5-8.0) g/dL Albumin 4.0 (3.5-5.0) g/dL Lipase 50 (8-78) U/L Urine Color Urine Appearance Urine pH (5.0-9.0) Ur Specific [place] (1.005-1.025) Urine Protein (Neg-Trace) mg/dL Urine Glucose (UA) (Negative) mg/dL Urine Ketones (Negative) mg/dL Urine Blood (Negative) Urine Nitrite (Negative) Ur Leukocyte Esterase (Negative) Urine RBC (0-2) /HPF Urine WBC (0-5) /HPF Ur Squamous Epith Cells (0-2) /HPF Urine Bacteria (None Seen) Hyaline Casts (0-2) /LPF COVID-19 (SAL) (Negative) COVID-19 Clin Com Influenza Type A (JOANA) (Negative) Influenza Type B (JOANA) (Negative) Influenza A & B Note 06/15/22 06/15/22 06/15/22 Range/Units 14:59 14:59 15:01 WBC (4.8-10.8) X10*3/uL RBC (4.20-5.50) X10*6/uL Hgb (12.0-16.0) g/dl Hct (37.0-47.0) % MCV (80.0-98.0) fL MCH (27.0-33.0) pg MCHC (31.0-35.0) g/dl RDW (11.0-16.0) % Plt Count (160-400) X10*3/uL MPV (9.4-12.3) fL Immature Gran % (Auto) (0.0-0.4) % Neut % (Auto) (45-73) % Lymph % (Auto) (20-40) % [place] % (Auto) (2-11) % Eos % (Auto) (0-4) % Baso % (Auto) (0-2) % Lymph # (Auto) (1.2-4.9) X10*3/uL [place] # (Auto) (0.1-1.2) X10*3/uL Eos # (Auto) (0.0-0.4) X10*3/uL Baso # (Auto) (0.0-0.2) X10*3/uL Abs Immat Gran (auto) (0.00-0.03) X10*3/uL Absolute Neuts (auto) (2.0-8.3) x10*3/uL Absolute Nucleated RBC (0.0-0.012) X10*3/uL Nucleated RBC % (auto) (0.0-0.2) /100WBC Sodium (135-145) mmol/L Potassium (3.3-5.1) mmol/L Chloride (96-108) mmol/L Carbon Dioxide (22-29) mmol/L Anion Gap (12-20) BUN (9-16) mg/dL Creatinine (0.5-1.4) mg/dL Estim Creat Clear Calc Estimated GFR Random Glucose (60-115) mg/dL Calcium (8.4-10.2) mg/dL Magnesium (1.6-2.6) mg/dL Total Bilirubin (0.0-1.0) mg/dL AST (5-31) U/L ALT (0-31) U/L Alkaline Phosphatase (39-117) U/L Troponin I High Sens (<3.5-17.0) ng/L Total Protein (6.5-8.0) g/dL Albumin (3.5-5.0) g/dL Lipase (8-78) U/L Urine Color Yellow Urine Appearance Clear Urine pH 5.5 (5.0-9.0) Ur Specific [place] 1.015 (1.005-1.025) Urine Protein Negative (Neg-Trace) mg/dL Urine Glucose (UA) >=1000 H (Negative) mg/dL Urine Ketones Negative (Negative) mg/dL Urine Blood Negative (Negative) Urine Nitrite Negative (Negative) Ur Leukocyte Esterase Negative (Negative) Urine RBC 0-2 (0-2) /HPF Urine WBC 0-5 (0-5) /HPF Ur Squamous Epith Cells 0-2 (0-2) /HPF Urine Bacteria None Seen (None Seen) Hyaline Casts 0-2 (0-2) /LPF COVID-19 (SAL) Negative (Negative) COVID-19 Clin Com See Note Influenza Type A (JOANA) Negative (Negative) Influenza Type B (JOANA) Negative (Negative) Influenza A & B Note See Note Discharge Plan Discharge Clinical Impression: Tremor Patient Disposition: Elopement Prescriptions: No Action fluticasone propion-salmeterol [Advair Diskus] 500-50 mcg/dose blister with device 1 ea inhalation Q12H Qty: 60 2RF trazodone 100 mg tablet 1 tab PO BEDTIME ursodiol 300 mg capsule 2 cap PO BID oxycodone 5 mg tablet 1 tab PO Q8H PRN (Reason: pain) valsartan-hydrochlorothiazide 160-25 mg tablet 1 tab PO QAM metoprolol tartrate 25 mg tablet 1 tab PO BID sertraline 50 mg tablet 1 tab PO QAM alendronate 70 mg tablet 1 tab PO QWEEK albuterol sulfate 2.5 mg /3 mL (0.083 %) solution for nebulization 2.5 mg inhalation Q4-6H PRN albuterol sulfate 90 mcg/actuation HFA aerosol inhaler 2 puff inhalation Q6H PRN benzonatate 150 mg capsule 150 mg PO BID 30 Days Qty: 60 1RF Discharge Date/Time: 06/16/22 00:06
[2022-06-15 14:41] VITALS: BP 180/87; PULSE 102; RESP 16; TEMP 36.8; O2SAT 97; BMI 30.2
--- NOTE | 2022-06-15 14:46 | ECG_ITS ---
Test Reason : WEAKNESS Blood Pressure : / mmHG Vent. Rate : 094 BPM Atrial Rate : 094 BPM P-R Int : 220 ms QRS Dur : 078 ms QT Int : 362 ms P-R-T Axes : 060 -03 083 degrees QTc Int : 452 ms Sinus rhythm with 1st degree A-V block Nonspecific T wave abnormality Abnormal ECG When compared with ECG of 14-FEB-2008 15:29, DE interval has increased Referred By: Jamia Gage Electronically Signed By:MITCHELL HASTINGS
[2022-06-15 15:08] LABS: MANUAL DIFF FLAG NO
[2022-06-15 15:09] LABS: Appearance Urine Clear; Color Urine Yellow; Glucose Urine UA >=1000 mg/dL (Negative); Leukocyte Esterase Urine Negative (Negative); Nitrite Urine Negative (Negative); PH 5.5 (5.0-9.0); Specific Gravity - Urine 1.015 (1.005-1.025); UMIC TRIGGER UACC YES; Urine Blood Negative (Negative); Urine Ketones Negative (Negative); Urine Protein Negative (Neg-Trace)
[2022-06-15 15:19] LABS: Bacteria Urine None Seen (None Seen); Hyaline Casts Urine 0-2 /LPF (0-2); RBC Urine 0-2 /HPF (0-2); Squamous Epithelial Cell Urine 0-2 /HPF (0-2); WBC Urine 0-5 /HPF (0-5)
[2022-06-15 15:25] LABS: Alanine Aminotransferase 50 U/L (0-31); Alkaline Phosphatase 119 U/L (39-117); Anion Gap 14 (12-20); Aspartate Amino Transferase 49 U/L (5-31); Bilirubin Total 0.9 mg/dL (0.0-1.0); Blood Urea Nitrogen 10 mg/dL (9-16); Calcium 9.2 mg/dL (8.4-10.2); Carbon Dioxide 24 mmol/L (22-29); Chloride 109 mmol/L (96-108); Creatinine Clr Calc Pharmacy 44.7; Estimated Glomerular Filt Rate 57; Glucose Random 201 mg/dL (60-115); Lipase 50 U/L (8-78); Magnesium 1.9 mg/dL (1.6-2.6); Potassium 3.9 mmol/L (3.3-5.1); Sodium 143 mmol/L (135-145); Total Protein 7.6 g/dL (6.5-8.0)
[2022-06-15 15:28] LABS: IDNOW Serial# 9DB6401D; Influenza A Negative (Negative); Influenza B2 Negative (Negative)
[2022-06-15 15:32] LABS: Troponin-I High Sensitivity 16.9 ng/L (<3.5-17.0)
[2022-06-15 15:35] LABS: IDNOW Serial# 16C4AD1C
[2022-06-15 15:36] LABS: COVID-19 Test Negative (Negative)
[2022-06-15 15:44] LABS: Basophils Percent Auto 0.3 % (0-2); Eosinophils Percent Auto 0.5 % (0-4); Hematocrit 41.9 % (37.0-47.0); Hemoglobin 13.4 g/dl (12.0-16.0); Imm Gran Abs Auto 0.03 X10*3/uL (0.00-0.03); Imm Gran Pct Auto 0.3 % (0.0-0.4); Lymphocytes Absolute Auto 1.2 X10*3/uL (1.2-4.9); Lymphocytes Percent Auto 13.4 % (20-40); Mean Corpuscular Hemoglobin 28.3 pg (27.0-33.0); Mean Corpuscular Volume 88.6 fL (80.0-98.0); Mean Platelet Volume 11.8 fL (9.4-12.3); Monocytes Percent Auto 11.5 % (2-11); Neutrophils Absolute Auto 6.3 x10*3/uL (2.0-8.3); Platelet Count 111 X10*3/uL (160-400); Red Blood Count 4.73 X10*6/uL (4.20-5.50); Red Cell Distribution Width 13.9 % (11.0-16.0); White Blood Count 8.6 X10*3/uL (4.8-10.8)
== END 2022-06-16 00:06 | disposition left against medical advice (07) ==
PROVIDERS: Nurse Practitioner Family; Emergency Provider Emergency Medicine; PCP Internal Medicine
DX: R25.1 Tremor, unspecified (principal); E11.9 Type 2 diabetes mellitus without complications; I10 Essential (primary) hypertension; E78.5 Hyperlipidemia, unspecified; Z20.822 Contact with and (suspected) exposure to COVID-19; Z79.899 Other long term (current) drug therapy
CPT/HCPCS: 36415; 71046; 80053; 81001; 83690; 83735; 84484; 85025; 87502; 87635; 93005; 99283

== ENCOUNTER → 2022-07-19 15:19 | Outpatient (BNVA) | payer MEDICARE, MEDICAID, SELFPAY | PROVIDERS: PCP Internal Medicine; Visit Provider Internal Medicine | DX: R05.3 Chronic cough (principal); U09.9 Post COVID-19 condition, unspecified; J84.9 Interstitial pulmonary disease, unspecified | CPT/HCPCS: 99212 ==

== ENCOUNTER → 2022-08-18 13:33 | Outpatient (BNVA) | payer MEDICARE, MEDICAID, SELFPAY | PROVIDERS: PCP Internal Medicine; Visit Provider Nurse Practitioner Family | DX: R35.0 Frequency of micturition (principal); R35.1 Nocturia; I10 Essential (primary) hypertension | CPT/HCPCS: 51798; 99212 ==

== ENCOUNTER 2022-09-01 13:32 | Outpatient (REF) | payer MEDICARE, MEDICAID, SELFPAY ==
--- NOTE | ~2022-09-01 | US_ITS ---
EXAMINATION: US RETROPERITONEAL COMPLETE (RENAL) CLINICAL INFORMATION: Frequency of micturition. COMPARISON: MRI abdomen without and with contrast dated 07/06/2022. CT abdomen and pelvis without and with contrast dated 08/27/2020. Ultrasound abdomen complete dated 09/11/2019 and 02/01/2016. TECHNIQUE: Real-time imaging of the kidneys and bladder. Technically difficult study secondary to bowel gas. FINDINGS: RIGHT KIDNEY: 9.4 x 5.3 x 4.7 cm (SAG x AP x TRV). The kidney is normal in size, contour, and echogenicity. Renal cortical thickness is normal. No calculi or focal parenchymal lesions. No hydronephrosis. LEFT KIDNEY: 10.6 x 5.2 x 4.3 cm (SAG x AP x TRV). The kidney is normal in size, contour, and echogenicity. Renal cortical thickness is normal. No calculi or focal parenchymal lesions. No hydronephrosis. BLADDER: Partially distended. Bilateral ureteral jets are not demonstrated. Prevoid bladder volume is 12.4 mL. Postvoid bladder volume is 1.3 mL. US/US retroperitoneal comp IMPRESSION: Unremarkable renal ultrasound. Partially distended urinary bladder with no ureteral jets seen.
== END 2022-09-01 13:33 | disposition home or self-care (01) ==
LOC: HO.US 13:32
PROVIDERS: Visit Provider Nurse Practitioner Family
DX: R35.0 Frequency of micturition (principal); R35.1 Nocturia
CPT/HCPCS: 76770

== ENCOUNTER → 2022-09-26 11:32 | Outpatient (BNVA) | payer MEDICARE, MEDICAID, SELFPAY | PROVIDERS: PCP Internal Medicine; Visit Provider Nurse Practitioner Family | DX: R35.1 Nocturia (principal); R35.0 Frequency of micturition | CPT/HCPCS: 51798; 99212 ==

== ENCOUNTER 2022-11-18 10:19 | Outpatient (REF) | payer MEDICARE, MEDICAID, SELFPAY ==
[2022-11-18 13:34] LABS: MANUAL DIFF FLAG NO
[2022-11-18 13:41] LABS: Basophils Absolute Auto 0.1 X10*3/uL (0.0-0.2); Basophils Percent Auto 0.7 % (0-2); Eosinophils Absolute Auto 0.2 X10*3/uL (0.0-0.4); Eosinophils Percent Auto 2.4 % (0-4); Hematocrit 44.1 % (37.0-47.0); Hemoglobin 14.2 g/dl (12.0-16.0); Imm Gran Abs Auto 0.03 X10*3/uL (0.00-0.03); Imm Gran Pct Auto 0.4 % (0.0-0.4); Lymphocytes Absolute Auto 3.4 X10*3/uL (1.2-4.9); Lymphocytes Percent Auto 40.9 % (20-40); Mean Corpuscular HGB Conc 32.2 g/dl (31.0-35.0); Mean Platelet Volume 12.4 fL (9.4-12.3); Monocytes Absolute Auto 0.7 X10*3/uL (0.1-1.2); Monocytes Percent Auto 8.2 % (2-11); Neutrophils Absolute Auto 3.9 x10*3/uL (2.0-8.3); Neutrophils Percent Auto 47.4 % (45-73); Platelet Count 115 X10*3/uL (160-400); Red Cell Distribution Width 13.8 % (11.0-16.0); White Blood Count 8.3 X10*3/uL (4.8-10.8)
[2022-11-18 13:55] LABS: INTERNATIONAL NORM RATIO 1.1 (0.9-1.1); Prothrombin Time 13.6 SEC (11.1-13.3)
[2022-11-18 13:57] LABS: Alanine Aminotransferase 46 U/L (0-31); Albumin Level 3.7 g/dL (3.5-5.0); Alkaline Phosphatase 97 U/L (39-117); Aspartate Amino Transferase 47 U/L (5-31); Bilirubin Direct 0.5 mg/dL (0.0-0.5); Bilirubin Total 1.1 mg/dL (0.0-1.0); Blood Urea Nitrogen 14 mg/dL (9-16); Estimated Glomerular Filt Rate > 60; Total Protein 7.6 g/dL (6.5-8.0)
[2022-11-20 13:28] LABS: Alpha Fetoprotein 7.5 ng/mL
== END 2022-11-18 10:20 | disposition home or self-care (01) ==
LOC: HO.HMGCLDS 10:19
PROVIDERS: PCP Internal Medicine; Visit Provider Internal Medicine
DX: K74.69 Other cirrhosis of liver (principal); R93.2 Abnormal findings on diagnostic imaging of liver and biliary tract; R77.2 Abnormality of alphafetoprotein
CPT/HCPCS: 36415; 80076; 82105; 82565; 84520; 85025; 85610

== ENCOUNTER 2022-12-01 12:15 | Outpatient (AMB) | payer MEDICARE, MEDICAID, SELFPAY ==
--- NOTE | 2022-12-01 12:11 | A.OFFVIS_ITS ---
Intake Intake Visit Reasons: 6w follow up/PVR Intake Note: Patient is present for follow up [facility] Medications: Solifenacin Blood Thinner: none PVR: 28ml's Tube Buffer Required: Yes Accompanied by: Unknown Allergies No Known Allergies Allergy (Mild, Verified 12/02/22 06:40) NONE Medication List - Last Reconciled 12/02/22 by Alessia Matos [employer]- albuterol sulfate 2.5 mg inhalation Q4-6H PRN albuterol sulfate 90 mcg/actuation 2 puffs inhalation Q6H PRN alendronate 1 tab PO QWEEK fluticasone propion-salmeterol 500-50 mcg/dose (Advair Diskus) 1 ea PO BID hydrochlorothiazide 25 mg PO QAM metoprolol tartrate 1 tab PO BID sertraline 1 tab PO QAM solifenacin (Vesicare) 5 mg PO DAILY 30 days trazodone 1 tab PO BEDTIME ursodiol 2 caps PO BID valsartan 160 mg PO QAM HPI HPI Comments History of Present Illness Details Vivienne is a pleasant 77-year-old Nepali-speaking female patient of Dr. Martinez. She has a past medical history of cirrhosis, depression, hypercholesteremia, hypertension, GERD, and interstitial lung disease. She presents to the office today for a follow up. Of note, patient was seen approxitmately 6 weeks ago for follow-up of her urinary frequency and nocturia at which time she was started on VESIcare 5 mg daily. A retroperitoneal ultrasound was ordered and reviewed with the patient at her last office visit Bilateral kidneys with no lesions, calculi, or hydronephrosis noted. The bladder is partially distended. Unremarkable renal ultrasound. Patient discusses having limited fluids 3-4 hours to bed to assist with nocturia however continues with nocturia. She reports having started VESIcare yesterday as she was awaiting arrival of her bubble pack medications through her pharmacy. She otherwise denies urinary urgency, incontinence, hematuria, dysuria, foul- smelling urine, changes to urinary stream, flank pain, fever, and or chills. In office urinalysis results reviewed with the patient today. PVR 28mL. Discussed follow-up in 6 weeks with PVR as patient has just received in started VESIcare. She otherwise offers no issues or concerns at this time. [facility] Medical History Cirrhosis Cough Depression Elevated cholesterol GERD (gastroesophageal reflux disease) History of fatty infiltration of liver HTN (hypertension) ILD (interstitial lung disease) Liver transplant candidate Post-COVID chronic cough Surgical History H/O colonoscopy History of carpal tunnel release History of esophagogastroduodenoscopy (EGD) History of liver biopsy Hx of breast biopsy Hx of tubal ligation Social History Are you a primary day care home provider to a significant other at home: No Do you presently have visiting nurse or other home services: No Patient Tobacco Use Status: Former Tobacco user Review of Systems Const All systems reviewed & are unremarkable except as noted in HPI and below Reports no additional complaints Eyes Reports no additional complaints ENT Reports no additional complaints Card Reports as per HPI Resp Reports as per HPI GI Reports as per HPI Reports as per HPI Musc Reports no additional complaints Neuro Reports no additional complaints Psych Reports as per HPI Endo Reports no additional complaints Joselo/Lymph Reports no additional complaints Aller/Immun Reports no additional complaints Physical Exam Const General: cooperative, healthy appearing, comfortable, no acute distress, well developed, alert and awake Orientation/consciousness: patient oriented x3 Limitations: no limitations HEENT Head: Yes normal to inspection, Yes normocephalic and Yes atraumatic Ears: hearing grossly normal bilaterally Eyes General: appearance normal, both eyes and all related structures Neck Neck: Yes normal visual inspection and Yes trachea midline Chest Chest palpation & inspection: normal inspection of the chest Resp Effort & Inspection: normal respiratory effort and able to speak in complete sentences Cardio Rate: regular rate GI Inspection: Yes normal to inspection General: Yes no CVA tenderness Back/Spine/Pelvis Back: no CVA tenderness Skin General skin exam: no rashes or lesions noted Neuro General: patient oriented x3 Extrem General: Yes normal to inspection Psych Appearance: grossly normal and well kempt Mental Status: mental status grossly normal Speech and movement: Normal speech and movement present and Clear speech present Affect: normal affect Attitude: cooperative Thought process: Normal thought process present Thought content: Normal thought content present Insight: Good insight present (Psych) Judgement: Good judgement present (Psych) Office Procedures Post Void Residual Post Residual Void Post Void Residual (PVR): 28 84923-Mgqo Void Residual by ultrasound Results AMB Urinalysis, Automated UA Leukoctes 0 Romelia/uL Last Edit by Nadege Lezama on 12/01/22 12:28 UA Nitrite Last Edit by [employer] on 12/01/22 12:28 UA Urobilinogen 0.2 mg/dL Last Edit by [employer] on 12/01/22 12:28 UA Protein 15 mg/dL Last Edit by [employer] on 12/01/22 12:28 UA pH 6.0 Last Edit by [employer] on 12/01/22 12:28 UA Blood 0 Srikanth/uL Last Edit by [employer] on 12/01/22 12:28 UA Specific [place] 1.020 Last Edit by [employer] on 12/01/22 12:28 UA Ketone Negative Last Edit by [employer] on 12/01/22 12:28 UA Bilirubin 0 mg/dL Last Edit by [employer] on 12/01/22 12:28 UA Glucose 0 mg/dL Last Edit by [employer] on 12/01/22 12:28 Results Reviewed Results Reviewed: Laboratory Last Values Urine pH (Auto) 6.0 12/01/22 12:26 Specific [place] (Auto) 1.020 12/01/22 12:26 Urine Protein (Auto) 15 mg/dL 12/01/22 12:26 Glucose (UA)(Auto) 0 mg/dL 12/01/22 12:26 Urine Ketones (Auto) Negative 12/01/22 12:26 Urine Blood (Auto) 0 Srikanth/uL 12/01/22 12:26 Urine Bilirubin (Auto) 0 mg/dL 12/01/22 12:26 Urine Urobilinogen (Auto) 0.2 mg/dL 12/01/22 12:26 Leukocyte Esterase (Auto) 0 Romelia/uL 12/01/22 12:26 Assessment & Plan Assessment & Plan (1) Nocturia: Code(s): R35.1 - Nocturia (2) Urinary frequency: Code(s): R35.0 - Frequency of micturition Plan In office urinalysis results reviewed with the patient today; as noted above. PVR 28 mL. Continue VESIcare 5 mg daily as discussed and prescribed; unable to assess efficacy as patient reports to have started medication just one day ago. Discussed pelvic floor therapy; patient declines at this time Discussed continuing to limit fluids 3-4 hours prior to bed to assist with decreasing episodes of nocturia. Discussed bladder triggers/irritants. Plan of care reviewed with her daughter Brigitte. Follow-up in 6 weeks with PVR; or sooner with any issues, concerns, and or questions. Orders: Orders AMB Urinalysis Automated 12/01/22 Z13.9 - Encounter for screening, unspecified AMB Post Void Residual by ultrasound 12/01/22 R35.0 - Frequency of micturition Patient Instructions: The patient had an opportunity to ask questions regarding the treatment plan. All questions were answered. Physical exam, labs, and imaging were discussed and reviewed in detail. As well as risks, benefits, and discussion of treatment choices. No major barriers to understanding were identified. The patient expressed understanding and agreement with the above treatment plan. The patient was made aware they should contact our office by phone for worsening of their current condition, the appearance of new symptoms, or with any questions or concerns. Compliance is encouraged with any medications and follow up testing that is ordered. It is a privilege to be allowed the opportunity to participate in? your urological care.? Again, if you have any questions or concerns If you have any questions or concerns please do not hesitate to contact me. The office is [phone]. This note is constructed using voice recognition software. While every effort has been made to ensure accuracy titrator errors may have been included. Yours sincerely, TROY Faye Coding Level of Care Code Est Pt Level 3 (47381) Diagnoses Nocturia R35.1 Urinary frequency R35.0 CPT Codes Post Residual Void - PVR CPT Code: 63615-Caxb Void Residual by ultrasound ([id number])
== END 2022-12-01 12:40 | disposition home or self-care (01) ==
PROVIDERS: PCP Internal Medicine; Visit Provider Nurse Practitioner Family
DX: R35.1 Nocturia (principal); R35.0 Frequency of micturition
CPT/HCPCS: 99213

== ENCOUNTER → 2022-12-01 12:15 | Outpatient (BNVA) | payer MEDICARE, MEDICAID, SELFPAY | PROVIDERS: PCP Internal Medicine; Visit Provider Nurse Practitioner Family | DX: R35.0 Frequency of micturition (principal); R35.1 Nocturia; N32.81 Overactive bladder; Z79.899 Other long term (current) drug therapy | CPT/HCPCS: 51798; 99212 ==

== ENCOUNTER 2023-01-19 09:20 | Outpatient (REF) | payer OTHER, SELFPAY ==
[2023-01-19 11:48] LABS: Cholesterol 237 mg/dL (<200); HDL Cholesterol 43 mg/dL (>40); LDL Cholesterol Calculated 172 mg/dL (<100); Triglycerides 110 mg/dL (<150)
[2023-01-19 11:52] LABS: Alanine Aminotransferase 58 U/L (0-31); Alkaline Phosphatase 110 U/L (39-117); Anion Gap 17 (12-20); Aspartate Amino Transferase 67 U/L (5-31); Bilirubin Direct 0.5 mg/dL (0.0-0.5); Bilirubin Total 1.3 mg/dL (0.0-1.0); Blood Urea Nitrogen 11 mg/dL (9-16); Carbon Dioxide 24 mmol/L (22-29); Chloride 105 mmol/L (96-108); Estimated Glomerular Filt Rate > 60; Glucose Random 120 mg/dL (60-115); Potassium 3.5 mmol/L (3.3-5.1); Sodium 142 mmol/L (135-145); Total Protein 7.9 g/dL (6.5-8.0)
[2023-01-19 12:35] LABS: Reflex LDLD? No
== END 2023-01-19 09:21 | disposition home or self-care (01) ==
LOC: HO.HHCL 09:20
PROVIDERS: Visit Provider Internal Medicine
DX: E11.9 Type 2 diabetes mellitus without complications (principal)
CPT/HCPCS: 36415; 80048; 80061; 80076

== ENCOUNTER 2023-02-27 13:11 | Outpatient (REF) | payer OTHER, SELFPAY ==
--- NOTE | ~2023-02-27 | MR_ITS ---
EXAMINATION: MR ABDOMEN WITHOUT AND WITH CONTRAST CLINICAL INFORMATION: Cirrhosis. Elevated AFP. COMPARISON: 06/08/2022 and 09/27/2021 TECHNIQUE: MR abdomen was performed without and with use of 7.5 mL intravenous Gadavist gadolinium contrast. Postcontrast images are performed in multiphase dynamic sequences. Imaging was performed in 3 planes. FINDINGS: LUNG BASES: The visualized lung bases are unremarkable. KIDNEYS AND URETERS: Symmetric in size and enhancement. No hydronephrosis. GALLBLADDER: Contracted. LIVER AND BILIARY TREE: Nodular hepatic morphology compatible with cirrhosis. Scattered T2 hyperintense benign-appearing hepatic cysts. Loss of signal on opposed phase imaging compatible with hepatic steatosis. Stable 0.9 cm hyperenhancing observation in the right hepatic lobe, 100:25 without washout characteristics or pseudocapsule. No threshold growth. No intra or extrahepatic biliary duct dilatation. PANCREAS: No ductal dilatation. SPLEEN: Not enlarged. ADRENAL GLANDS: No adrenal mass. GASTROINTESTINAL TRACT: Imaged loops of small and large bowel are not obstructed. No abdominal ascites. LYMPH NODES: No bulky abdominal lymphadenopathy. VASCULAR: Recannulized umbilical vein compatible with portal hypertension. Normal caliber abdominal aorta. MR/MR abdomen wo/w con IMPRESSION: Cirrhotic liver with loss of signal suggesting hepatic steatosis. A stable 0.9 cm arterially hyperenhancing observation in the right hepatic lobe does not meet criteria for threshold growth. No pseudocapsule or washout characteristics. This remains an LR3 observation, intermediate probability of malignancy, and a 3 to 6 month follow-up MR is recommended.
[2023-02-27] MEDS: gadobutroL 7.5 ML VIAL IVPUSH (14:20)
== END 2023-02-27 13:12 | disposition home or self-care (01) ==
LOC: HO.MRI 13:11
PROVIDERS: PCP Internal Medicine; Visit Provider Internal Medicine
DX: K74.69 Other cirrhosis of liver (principal); R93.2 Abnormal findings on diagnostic imaging of liver and biliary tract; R77.2 Abnormality of alphafetoprotein
CPT/HCPCS: 74183; A9585

== ENCOUNTER 2023-04-10 10:37 | Outpatient (AMB) | payer OTHER, SELFPAY ==
[2023-04-10 10:49] VITALS: BP 130/64; BMI 35.3
--- NOTE | 2023-04-10 10:49 | MHC.OFFVIS ---
Intake Vital Signs 04/10/23 10:49 Height 4 ft 9 in Weight 163 lb BMI 35.3 BP 130/64 Blood Pressure Location Lt brachial Position Sitting Intake Visit Reasons: cough Intake Note: pt is here for follow up and states she is tired, she states she has a cough during the night, could be the weather Recovery Room Nurse Required: Yes Recovery Room Nurse Name: [id number] Allergies No Known Allergies Allergy (Mild, Verified 04/10/23 11:05) NONE Medication List - Last Reconciled 04/10/23 by Cuco Chowdhury MD albuterol sulfate 2.5 mg inhalation Q4-6H PRN albuterol sulfate 90 mcg/actuation 2 puffs inhalation Q6H PRN alendronate 1 tab PO QWEEK fluticasone propion-salmeterol 500-50 mcg/dose (Advair Diskus) 1 ea PO BID hydrochlorothiazide 25 mg PO QAM metoprolol tartrate 1 tab PO BID sertraline 1 tab PO QAM solifenacin (Vesicare) 5 mg PO DAILY 30 days trazodone 1 tab PO BEDTIME ursodiol 2 caps PO BID valsartan 160 mg PO QAM Do you need a note to return to daycare/school/sports/work: No HPI cough HPI Details 78 years old female is coming for follow-up after a long time. She complains of increased cough for the last few weeks. Complains of irritation in the throat. Cough is more at night, without any expectoration. She has had no fever or chills. She does use Advair twice a day, and albuterol only as needed. [facility] Medical History (Updated 04/10/23 @ 11:15 by Cuco Chowdhury MD) COPD (chronic obstructive pulmonary disease) ILD (interstitial lung disease) Post-COVID chronic cough Cough Liver transplant candidate History of fatty infiltration of liver Depression GERD (gastroesophageal reflux disease) Elevated cholesterol HTN (hypertension) Cirrhosis Surgical History History of esophagogastroduodenoscopy (EGD) History of carpal tunnel release Hx of breast biopsy Hx of tubal ligation History of liver biopsy H/O colonoscopy Social History Are you a primary adult caregiver to a significant other at home: No Do you presently have visiting nurse or other home services: No Comment: uses walker occasionally for balance Patient Tobacco Use Status: Former Tobacco user Review of Systems Const All systems reviewed & are unremarkable except as noted in HPI and below Eyes Reports no additional complaints ENT Reports no additional complaints, Denies nasal congestion and Denies nasal discharge Card Denies chest pain, Denies irregular heart rhythm and Denies leg edema Resp Reports as per HPI GI Reports no additional complaints Reports no additional complaints Musc Reports no additional complaints Skin/Breast Reports system reviewed and no additional complaints, except as documented Neuro Reports no additional complaints Psych Reports depression Endo Reports no additional complaints Physical Exam Vital Signs: Last Vital Signs BP 130/64 04/10/23 10:49 BMI result Body Mass Index 35.3 Const General: comfortable (With intermittent cough), no acute distress, alert and awake Orientation/consciousness: patient oriented x3 HEENT Head: Yes normal to inspection General nose exam: No nasal polyps present and No nasal discharge present Face and sinus: Yes sinuses nontender Mouth: oropharynx normal Throat: Yes posterior oropharynx normal Eyes General: appearance normal, both eyes and all related structures Neck Neck: Yes normal visual inspection, Yes no lymphadenopathy, Yes trachea midline and Yes no JVD Thyroid: Thyroid normal Chest Chest palpation & inspection: normal inspection of the chest, normal palpation of entire chest wall and no tenderness Resp Other: Percussion note is resonant, breath sounds are slightly distant. Both lungs are clear today , I did not hear any wheezes or crepitations. Cardio Palpation: normal PMI Rate: regular rate Rhythm: regular rhythm Heart sounds: no gallops and no murmurs GI Palpation (GI): Soft to palpation, nontender, No hepatosplenomegaly present and no masses Auscultation: normal bowel sounds Back/Spine/Pelvis Thoracic/Lumbar Spine: thoracic and lumbar spine normal to inspection Skin General skin exam: no rashes or lesions noted Neuro General: patient oriented x3 and no focal motor deficits Cranial nerves: Yes CN's II-XII intact bilaterally Extrem General: Yes normal to inspection, Yes no clubbing, cyanosis or edema and Yes no calf tenderness Psych Appearance: grossly normal and well kempt Speech and movement: Normal speech and movement present Assessment & Plan Assessment & Plan (1) COPD (chronic obstructive pulmonary disease): Comment: She has only mild chronic obstructive pulmonary disorder, Main symptom is chronic cough and shortness of breath on exertion. Code(s): J44.9 - Chronic obstructive pulmonary disease, unspecified Plan: Continue Advair 250-51 inhalation b.i.d. Use albuterol HFA 2 puffs Q 4-6 hours only p.r.n. (2) Cough: Comment: She has chronic cough which started after the 2nd bout of COVID infection. I think this is due to residual fibrotic changes/Interstitial Lung disease and reactive airways Code(s): R05.9 - Cough, unspecified Plan: Continue 250-50 1 inhalation b.i.d. May use cough drops as needed. STRESS THAT SHE SHOULD USE A VAPORIZER/ OR A HUMIDIFIER IN THE HOUSE DURING WINTER MONTHS. SHE CAN ALSO DO STEAM INHALATIONS 2 OR 3 TIMES A DAY. USE COUGH DROPS NEEDED FOR ONGOING COUGH. (3) ILD (interstitial lung disease): Comment: On the chest x-ray and also on her chest CT scan in August 2020, there seems to be pulmonary scarring in the peripheral areas. 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 This residual ILD may be the reason for her ongoing cough . Code(s): J84.9 - Interstitial pulmonary disease, unspecified Plan: TREATMENT UNDER COPD Coding Level of Care Code Est Pt Level 3 (97214) Diagnoses COPD (chronic obstructive pulmonary disease) J44.9 Cough R05.9 ILD (interstitial lung disease) J84.9
== END 2023-04-10 11:05 | disposition home or self-care (01) ==
PROVIDERS: PCP Internal Medicine; Visit Provider Internal Medicine
DX: J44.9 Chronic obstructive pulmonary disease, unspecified (principal); R05.9 Cough, unspecified; J84.9 Interstitial pulmonary disease, unspecified
CPT/HCPCS: 99213

== ENCOUNTER → 2023-04-10 10:37 | Outpatient (BNVA) | payer OTHER, SELFPAY | PROVIDERS: PCP Internal Medicine; Visit Provider Internal Medicine | DX: J44.9 Chronic obstructive pulmonary disease, unspecified (principal); J84.9 Interstitial pulmonary disease, unspecified; R05.9 Cough, unspecified | CPT/HCPCS: 99212 ==

== ENCOUNTER 2023-05-16 10:24 | Outpatient (REF) | payer OTHER, SELFPAY ==
[2023-05-16 11:39] LABS: Basophils Absolute Auto 0.1 X10*3/uL (0.0-0.2); Basophils Percent Auto 0.7 % (0-2); Eosinophils Absolute Auto 0.3 X10*3/uL (0.0-0.4); Eosinophils Percent Auto 2.6 % (0-4); Hematocrit 45.3 % (37.0-47.0); Hemoglobin 14.8 g/dl (12.0-16.0); Imm Gran Abs Auto 0.04 X10*3/uL (0.00-0.03); Imm Gran Pct Auto 0.3 % (0.0-0.4); Lymphocytes Absolute Auto 5.5 X10*3/uL (1.2-4.9); MANUAL DIFF FLAG SCAN; Mean Corpuscular HGB Conc 32.7 g/dl (31.0-35.0); Mean Corpuscular Hemoglobin 29.5 pg (27.0-33.0); Mean Corpuscular Volume 90.4 fL (80.0-98.0); Mean Platelet Volume 12.3 fL (9.4-12.3); Monocytes Absolute Auto 1.3 X10*3/uL (0.1-1.2); Neutrophils Absolute Auto 5.5 x10*3/uL (2.0-8.3); Neutrophils Percent Auto 43.4 % (45-73); Platelet Count 149 X10*3/uL (160-400); Red Blood Count 5.01 X10*6/uL (4.20-5.50); Red Cell Distribution Width 14.3 % (11.0-16.0); SCAN SMEAR FLAG 1; White Blood Count 12.8 X10*3/uL (4.8-10.8)
[2023-05-16 11:53] LABS: Alanine Aminotransferase 58 U/L (0-31); Alkaline Phosphatase 126 U/L (39-117); Anion Gap 14 (12-20); Aspartate Amino Transferase 61 U/L (5-31); Bilirubin Direct 0.4 mg/dL (0.0-0.5); Blood Urea Nitrogen 17 mg/dL (9-16); Calcium 9.7 mg/dL (8.4-10.2); Carbon Dioxide 27 mmol/L (22-29); Chloride 104 mmol/L (96-108); Cholesterol 267 mg/dL (<200); Estimated Glomerular Filt Rate > 60; Glucose Random 116 mg/dL (60-115); HDL Cholesterol 55 mg/dL (>40); LDL Cholesterol Calculated 190 mg/dL (<100); Potassium 4.1 mmol/L (3.3-5.1); Sodium 141 mmol/L (135-145); Total Protein 8.1 g/dL (6.5-8.0); Triglycerides 110 mg/dL (<150)
[2023-05-16 12:20] LABS: SLIDE REVIEW VERIFIED
== END 2023-05-16 10:25 | disposition home or self-care (01) ==
LOC: HO.HHCL 10:24
PROVIDERS: Visit Provider Internal Medicine
DX: E11.9 Type 2 diabetes mellitus without complications (principal)
CPT/HCPCS: 36415; 80048; 80061; 80076; 85025

== ENCOUNTER 2023-07-23 15:51 | Outpatient (REF) | payer OTHER, SELFPAY ==
--- NOTE | ~2023-07-23 | XR_ITS ---
EXAMINATION: XR THORACIC SPINE XR LUMBAR SPINE CLINICAL INFORMATION: Pain. COMPARISON: CT images from 08/27/2020. Lumbar spine radiographs from 08/14/2017. TECHNIQUE: Thoracic spine, 2 views Lumbar spine, 3 views FINDINGS: THORACIC SPINE: No acute abnormality compared to 08/27/2020. The thoracic vertebra remain normal in height. No evidence of fracture or subluxation. There appears to be chronic mild and moderate narrowing of the disc spaces and multilevel osteophyte formation. LUMBAR SPINE: The lumbar vertebral body heights are maintained. No acute compression fracture. Multilevel anterior vertebral osteophyte formation. There is mild narrowing of disc spaces at L3-L4, L4-5 and L5-S1 and vacuum disc phenomenon is noted at the L4-L5 level. Facet arthropathy in lower lumbar spine is worst (i.e., severe) at L5-S1. No evidence of an acute sacral fracture. There is atherosclerotic calcification of the abdominal aorta. 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 No evidence of acute fracture or malalignment.
--- NOTE | ~2023-07-23 | XR_ITS ---
EXAMINATION: XR HIP, RIGHT CLINICAL INFORMATION: Hip pain COMPARISON: None available. TECHNIQUE: Two views of the right hip. FINDINGS: The femoral head is well-positioned within the intact acetabulum. Small osteophytes of the hip. The articular cartilage space is maintained. No evidence of proximal femoral fracture or osteonecrosis. The soft tissues are unremarkable. XR/XR hip RT min 2V IMPRESSION: Mild osteoarthrosis of the right hip.
--- NOTE | ~2023-07-23 | XR_ITS ---
EXAMINATION: XR THORACIC SPINE XR LUMBAR SPINE CLINICAL INFORMATION: Pain. COMPARISON: CT images from 08/27/2020. Lumbar spine radiographs from 08/14/2017. TECHNIQUE: Thoracic spine, 2 views Lumbar spine, 3 views FINDINGS: THORACIC SPINE: No acute abnormality compared to 08/27/2020. The thoracic vertebra remain normal in height. No evidence of fracture or subluxation. There appears to be chronic mild and moderate narrowing of the disc spaces and multilevel osteophyte formation. LUMBAR SPINE: The lumbar vertebral body heights are maintained. No acute compression fracture. Multilevel anterior vertebral osteophyte formation. There is mild narrowing of disc spaces at L3-L4, L4-5 and L5-S1 and vacuum disc phenomenon is noted at the L4-L5 level. Facet arthropathy in lower lumbar spine is worst (i.e., severe) at L5-S1. No evidence of an acute sacral fracture. There is atherosclerotic calcification of the abdominal aorta. 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 No evidence of acute fracture or malalignment.
== END 2023-07-23 15:52 | disposition home or self-care (01) ==
LOC: HO.HHCX 15:51
PROVIDERS: Visit Provider Nurse Practitioner Primary Care
DX: M25.551 Pain in right hip (principal); M54.50 Low back pain, unspecified; M54.6 Pain in thoracic spine; W19.XXXA Unspecified fall, initial encounter; M81.0 Age-related osteoporosis without current pathological fracture
CPT/HCPCS: 72070; 72100; 73502

== ENCOUNTER 2023-07-27 | Outpatient (REF) | payer OTHER, SELFPAY ==
--- NOTE | ~2023-07-27 | CT_ITS ---
EXAMINATION: CT HEAD WITHOUT CONTRAST CLINICAL INFORMATION: Head injury COMPARISON: None available. TECHNIQUE: Contiguous axial imaging was performed from the skull base to vertex without intravenous administration of contrast. This CT examination was performed using dose optimization techniques as appropriate, variously including the following: *Automated exposure control *Adjustment of mA and/or kV according to patient size (this includes techniques or standardized protocols for targeted exams where dose is matched to indication/reason for exam; i.e. extremities or head) *Use of iterative reconstruction technique DLP: 641 mGy-cm FINDINGS: There is no evidence of acute intracranial hemorrhage masses or mass effect. No evidence of hemorrhagic or ischemic strokes. There are patchy periventricular white matter changes as a sequela of microangiopathy and ventricles and sulci prominent due to global volume loss. There is no evidence of fractures. Paranasal sinuses and mastoids are well aerated. 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
== END 2023-07-27 00:01 | disposition home or self-care (01) ==
LOC: HO.CT
PROVIDERS: PCP Internal Medicine; Visit Provider Nurse Practitioner Primary Care
DX: G44.319 Acute post-traumatic headache, not intractable (principal); W19.XXXA Unspecified fall, initial encounter
CPT/HCPCS: 70450

== ENCOUNTER 2023-10-22 09:33 | Outpatient (AMB) | payer OTHER, SELFPAY ==
--- NOTE | 2023-10-22 09:51 | A.OFFVIS_ITS ---
Vital Signs 10/22/23 09:52 Height 4 ft 9 in Weight 167 lb 8.821 oz BMI 36.3 BP 142/64 H Blood Pressure Location Lt brachial Position Sitting Pulse 65 Pulse Source Pulse Oximeter Pulse Oximetry (%) 94 Oxygen Delivery Method Room Air Intake Visit Reasons: Cough Intake Note: pt is here for follow up and states she does have a cough from a cold, some shortness of breath with walking. Allergies No Known Allergies Allergy (Mild, Verified 10/22/23 10:23) NONE Medication List - Last Reconciled 10/22/23 by Cuco Chowdhury MD albuterol sulfate 2.5 mg inhalation Q4-6H PRN albuterol sulfate 90 mcg/actuation 2 puffs inhalation Q6H PRN alendronate 1 tab PO QWEEK fluticasone propion-salmeterol 250-50 mcg/dose 1 ea PO BID hydrochlorothiazide 25 mg PO QAM metoprolol tartrate 1 tab PO BID sertraline 1 tab PO QAM solifenacin (Vesicare) 5 mg PO DAILY 30 days trazodone 1 tab PO BEDTIME ursodiol 2 caps PO BID valsartan 160 mg PO QAM Do you need a note to return to daycare/school/sports/work: No HPI HPI Cough: Details: JAREN 78 YEARS OLD CYMRAES-SPEAKING FEMALE IS ACCOMPANIED BY HER DAUGHTER, WHO IS SPEAKING MOSTLY FOR HER. BREATHING HAS BEEN FAIRLY STABLE LONG SHE USES HER INHALER. SHE DOES HAVE MILD INTERMITTENT COUGH. THE COUGH IS WORSE DURING THE PAST 1 WEEK AFTER SHE HAD COLD-LIKE SYMPTOMS. SHE HAS MILD NASAL CONGESTION WITH POSTNASAL DISCHARGE. NO FEVER OR CHILLS. WEIGHT HAS REMAINED UNCHANGED, SHE COOKS FOOD AT HOME AND LOVES CARBOHYDRATES. [facility]LY [facility] Medical History (Updated 10/22/23 @ 10:34 by Cuco Chowdhury MD) Allergic rhinitis COPD (chronic obstructive pulmonary disease) ILD (interstitial lung disease) Post-COVID chronic cough Cough Liver transplant candidate History of fatty infiltration of liver Depression GERD (gastroesophageal reflux disease) Elevated cholesterol HTN (hypertension) Cirrhosis Surgical History History of esophagogastroduodenoscopy (EGD) History of carpal tunnel release Hx of breast biopsy Hx of tubal ligation History of liver biopsy H/O colonoscopy Social History Are you a primary floor care specialist to a significant other at home: No Do you presently have visiting nurse or other home services: No Comment: uses walker occasionally for balance Patient Tobacco Use Status: Former Tobacco user Review of Systems Const All systems reviewed & are unremarkable except as noted in HPI and below Eyes Reports no additional complaints ENT Reports no additional complaints, Denies nasal congestion and Denies nasal discharge Card Denies chest pain, Denies irregular heart rhythm and Denies leg edema Resp Reports as per HPI GI Reports no additional complaints Reports no additional complaints Musc Reports no additional complaints Skin/Breast Reports system reviewed and no additional complaints, except as documented Neuro Reports no additional complaints Psych Reports depression Endo Reports no additional complaints Physical Exam Vital Signs: Last Vital Signs Pulse 65 10/22/23 09:52 BP 142/64 H 10/22/23 09:52 Pulse Ox 94 10/22/23 09:52 Oxygen Delivery Method Room Air 10/22/23 09:52 BMI result Body Mass Index 36.3 Const General: comfortable (With intermittent cough), no acute distress, alert and awake Orientation/consciousness: patient oriented x3 HEENT Head: Yes normal to inspection General nose exam: No nasal polyps present and No nasal discharge present Face and sinus: Yes sinuses nontender and Yes other (HAS BILATERAL MODERATE NASAL CONGESTION) Mouth: oropharynx normal Throat: Yes posterior oropharynx normal Eyes General: appearance normal, both eyes and all related structures Neck Neck: Yes normal visual inspection, Yes no lymphadenopathy, Yes trachea midline and Yes no JVD Thyroid: Thyroid normal Chest Chest palpation & inspection: normal inspection of the chest, normal palpation of entire chest wall and no tenderness Resp Other: Percussion note is resonant, breath sounds are slightly distant. Both lungs are clear today , I did not hear any wheezes or crepitations. Cardio Palpation: normal PMI Rate: regular rate Rhythm: regular rhythm Heart sounds: no gallops and no murmurs GI Palpation (GI): Soft to palpation, nontender, No hepatosplenomegaly present and no masses Auscultation: normal bowel sounds Back/Spine/Pelvis Thoracic/Lumbar Spine: thoracic and lumbar spine normal to inspection Skin General skin exam: no rashes or lesions noted Neuro General: patient oriented x3 and no focal motor deficits Cranial nerves: Yes CN's II-XII intact bilaterally Extrem General: Yes normal to inspection, Yes no clubbing, cyanosis or edema and Yes no calf tenderness Psych Appearance: grossly normal and well kempt Speech and movement: Normal speech and movement present Assessment & Plan Assessment & Plan (1) COPD (chronic obstructive pulmonary disease): Comment: She has only mild chronic obstructive pulmonary disorder, Main symptom is chronic cough and shortness of breath on exertion. Code(s): J44.9 - Chronic obstructive pulmonary disease, unspecified Category: Medical Plan: CONTINUE TO USE ADVAIR 250-51 INHALATION B.I.D.. ALBUTEROL HFA 2 PUFFS Q 6 HOURS P.R.N. (2) Cough: Comment: She has chronic cough which started after the 2nd bout of COVID infection. I think this is due to residual fibrotic changes/Interstitial Lung disease and reactive airways NOW THE COUGH IS WORSE SINCE LAST WEEK BECAUSE OF THE COMMON COLD OR ALLERGIC RHINITIS. Code(s): R05.9 - Cough, unspecified Category: Medical Plan: OK TO USE DAYQUIL/NYQUIL SYRUP 2 TSP Q.6 HOURS P.R.N. FOR COUGH (3) Allergic rhinitis: Comment: PATIENT HAS BILATERAL NASAL CONGESTION AND I THINK SHE HAS IN SYMPTOMS OF ALLERGIC RHINITIS Code(s): J30.9 - Allergic rhinitis, unspecified Category: Medical Plan: WILL ORDER FLONASE NASAL SPRAY 2 SPRAY IN EACH NOSTRIL DAILY. Coding Level of Care Code Est Pt Level 3 (53758) Diagnoses COPD (chronic obstructive pulmonary disease) J44.9 Cough R05.9 Allergic rhinitis J30.9
[2023-10-22 09:52] VITALS: BP 142/64; PULSE 65; O2SAT 94; BMI 36.3
== END 2023-10-22 10:31 | disposition home or self-care (01) ==
PROVIDERS: PCP Internal Medicine; Visit Provider Internal Medicine
DX: J44.9 Chronic obstructive pulmonary disease, unspecified (principal); R05.9 Cough, unspecified; J30.9 Allergic rhinitis, unspecified
CPT/HCPCS: 99213

== ENCOUNTER → 2023-10-22 09:33 | Outpatient (BNVA) | payer OTHER, SELFPAY | PROVIDERS: PCP Internal Medicine; Visit Provider Internal Medicine | DX: J44.9 Chronic obstructive pulmonary disease, unspecified (principal); J30.9 Allergic rhinitis, unspecified | CPT/HCPCS: 99212 ==

== ENCOUNTER 2023-11-15 12:01 | Outpatient (REF) | payer OTHER, SELFPAY ==
[2023-11-15 12:11] LABS: MANUAL DIFF FLAG NO
[2023-11-15 12:51] LABS: INTERNATIONAL NORM RATIO 1.1 (0.9-1.1); Prothrombin Time 13.8 SEC (11.1-13.3)
[2023-11-15 12:52] LABS: Basophils Absolute Auto 0.1 X10*3/uL (0.0-0.2); Basophils Percent Auto 0.7 % (0-2); Eosinophils Absolute Auto 0.2 X10*3/uL (0.0-0.4); Eosinophils Percent Auto 2.1 % (0-4); Hematocrit 46.1 % (37.0-47.0); Hemoglobin 15.5 g/dl (12.0-16.0); Imm Gran Abs Auto 0.04 X10*3/uL (0.00-0.03); Imm Gran Pct Auto 0.4 % (0.0-0.4); Lymphocytes Absolute Auto 3.4 X10*3/uL (1.2-4.9); Mean Corpuscular HGB Conc 33.6 g/dl (31.0-35.0); Mean Corpuscular Hemoglobin 29.8 pg (27.0-33.0); Mean Corpuscular Volume 88.7 fL (80.0-98.0); Mean Platelet Volume 11.9 fL (9.4-12.3); Monocytes Absolute Auto 1.1 X10*3/uL (0.1-1.2); Monocytes Percent Auto 10.3 % (2-11); Neutrophils Absolute Auto 5.5 x10*3/uL (2.0-8.3); Neutrophils Percent Auto 53.5 % (45-73); Platelet Count 140 X10*3/uL (160-400); Red Cell Distribution Width 13.9 % (11.0-16.0); White Blood Count 10.2 X10*3/uL (4.8-10.8)
[2023-11-15 13:05] LABS: Alanine Aminotransferase 52 U/L (0-31); Albumin Level 4.3 g/dL (3.5-5.0); Alkaline Phosphatase 143 U/L (39-117); Aspartate Amino Transferase 56 U/L (5-31); Bilirubin Direct 0.3 mg/dL (0.0-0.5); Bilirubin Total 1.2 mg/dL (0.0-1.0); Total Protein 8.6 g/dL (6.5-8.0)
[2023-11-23 14:58] LABS: FIB-ALT 46 U/L (6-29); FIB-Alpha-2-Macroglobulin 470 mg/dL (106-279); FIB-Apolipoprotein A1 175 mg/dL (101-198); FIB-GGT 161 U/L (3-65); FIB-Haptoglobin 40 mg/dL (43-212); FIB-Total Bilirubin 1.1 mg/dL (0.2-1.2); Liver Fibrosis Score 0.93; Liver Fibrosis Stage F4; Nec Inflam Act Grade A1-A2; Nec Inflam Act Score 0.48
== END 2023-11-15 12:02 | disposition home or self-care (01) ==
LOC: HO.LAB 12:01
PROVIDERS: PCP Internal Medicine; Visit Provider Internal Medicine
DX: K74.60 Unspecified cirrhosis of liver (principal); K76.0 Fatty (change of) liver, not elsewhere classified
CPT/HCPCS: 36415; 80076; 81596; 82105; 85025; 85610

== ENCOUNTER 2024-02-26 09:45 | Outpatient (AMB) | payer OTHER, SELFPAY ==
--- NOTE | 2024-02-26 09:47 | A.OFFVIS_ITS ---
Vital Signs 02/26/24 09:51 Height 4 ft 9 in Weight 162 lb 0.636 oz BMI 35.1 BP 128/74 Blood Pressure Location Rt brachial Position Sitting Pulse 70 Pulse Source Pulse Oximeter Pulse Oximetry (%) 97 Oxygen Delivery Method Room Air Intake Visit Reasons: Cough Civil Attorney Required: No Jitney Driver: Jitney Driver offered & declined Accompanied by: Daughter Allergies No Known Allergies Allergy (Mild, Verified 02/26/24 10:17) NONE Medication List - Last Reconciled 02/26/24 by Cuco Chowdhury MD albuterol sulfate 2.5 mg inhalation Q4-6H PRN albuterol sulfate 90 mcg/actuation 2 puffs inhalation Q6H PRN alendronate 1 tab PO QWEEK fluticasone propion-salmeterol 250-50 mcg/dose 1 ea PO BID hydrochlorothiazide 25 mg PO QAM metoprolol tartrate 1 tab PO BID sertraline 1 tab PO QAM solifenacin (Vesicare) 5 mg PO DAILY 30 days trazodone 1 tab PO BEDTIME ursodiol 2 caps PO BID valsartan 160 mg PO QAM Do you need a note to return to daycare/school/sports/work: No HPI HPI Cough: Details: JAREN IS 78 YEARS OLD VERY PLEASANT FEMALE WHO IS COMING FOR HER ROUTINE FOLLOW- UP AFTER 4 MONTHS. HER MAIN ISSUE IS ONGOING COUGH MOSTLY AT BEDTIME. SOMETIME DURING THE DAY MAINLY RELATED TO ALLERGIES. SHE IS ON FLUTICASONE-SALMETEROL 250-51 INHALATION B.I.D., AND HAS NOT NEEDED TO USE THE RESCUE INHALER. SHE USES NYQUIL SYRUP AT NIGHT P.R.N. FOR CONTROL OF COUGH. SHE WALKS AROUND WITH WALKER, GAIT IS SLOW, SO DOES NOT REALLY HAVE MUCH SHORTNESS OF BREATH WITH ACTIVITY. LUCKILY SHE HAS HAD NO RECENT INFECTION . [facility] Medical History Allergic rhinitis COPD (chronic obstructive pulmonary disease) ILD (interstitial lung disease) Post-COVID chronic cough Cough Liver transplant candidate History of fatty infiltration of liver Depression GERD (gastroesophageal reflux disease) Elevated cholesterol HTN (hypertension) Cirrhosis Surgical History History of esophagogastroduodenoscopy (EGD) History of carpal tunnel release Hx of breast biopsy Hx of tubal ligation History of liver biopsy H/O colonoscopy Social History Are you a primary career technical education teacher to a significant other at home: No Do you presently have visiting nurse or other home services: No Comment: uses walker occasionally for balance Patient Tobacco Use Status: Former Tobacco user Review of Systems Const All systems reviewed & are unremarkable except as noted in HPI and below Eyes Reports no additional complaints ENT Reports no additional complaints, Denies nasal congestion and Denies nasal discharge Card Denies chest pain, Denies irregular heart rhythm and Denies leg edema Resp Reports as per HPI GI Reports no additional complaints Reports no additional complaints Musc Reports no additional complaints Skin/Breast Reports system reviewed and no additional complaints, except as documented Neuro Reports no additional complaints Psych Reports depression Endo Reports no additional complaints Physical Exam Vital Signs: Last Vital Signs Pulse 70 02/26/24 09:51 BP 128/74 02/26/24 09:51 Pulse Ox 97 02/26/24 09:51 Oxygen Delivery Method Room Air 02/26/24 09:51 BMI result Body Mass Index 35.1 Const General: comfortable (With intermittent cough), no acute distress, alert and awake Orientation/consciousness: patient oriented x3 HEENT Head: Yes normal to inspection General nose exam: No nasal polyps present and No nasal discharge present Face and sinus: Yes sinuses nontender and Yes other (HAS BILATERAL MODERATE NASAL CONGESTION) Mouth: oropharynx normal Throat: Yes posterior oropharynx normal Eyes General: appearance normal, both eyes and all related structures Neck Neck: Yes normal visual inspection, Yes no lymphadenopathy, Yes trachea midline and Yes no JVD Thyroid: Thyroid normal Chest Chest palpation & inspection: normal inspection of the chest, normal palpation of entire chest wall and no tenderness Resp Other: Percussion note is resonant, breath sounds are slightly distant. Both lungs are clear today , No wheezes or crepitations. Cardio Palpation: normal PMI Rate: regular rate Rhythm: regular rhythm Heart sounds: no gallops and no murmurs GI Palpation (GI): Soft to palpation, nontender, No hepatosplenomegaly present and no masses Auscultation: normal bowel sounds Back/Spine/Pelvis Thoracic/Lumbar Spine: thoracic and lumbar spine normal to inspection Skin General skin exam: no rashes or lesions noted Neuro General: patient oriented x3 and no focal motor deficits Cranial nerves: Yes CN's II-XII intact bilaterally Extrem General: Yes normal to inspection, Yes no clubbing, cyanosis or edema and Yes no calf tenderness Psych Appearance: grossly normal and well kempt Speech and movement: Normal speech and movement present Assessment & Plan Assessment & Plan (1) COPD (chronic obstructive pulmonary disease): Comment: She has only mild chronic obstructive pulmonary disorder, Main symptom is chronic cough and shortness of breath on exertion. Remains very stable . Code(s): J44.9 - Chronic obstructive pulmonary disease, unspecified Category: Medical Plan: Fluticasone propionate-salmeterol 250-51 inhalation b.i.d.. Use albuterol HFA 1 or 2 puffs Q 6 hours only p.r.n. if there is active wheezing and shortness of breath. (2) Cough: Comment: She has chronic cough which started after the 2nd bout of COVID infection. I think this is due to residual fibrotic changes/Interstitial Lung disease and reactive airways At present her cough is minimal, and mostly at night. Code(s): R05.9 - Cough, unspecified Category: Medical Plan: OK to use cough medicine such as NyQuil 1 or 2 tsp at nighttime. Use oral antihistaminics such as Claritin or Zyrtec only p.r.n. if there are bouts of sneezing. Coding Level of Care Code Est Pt Level 3 (37873) Diagnoses COPD (chronic obstructive pulmonary disease) J44.9 Cough R05.9
[2024-02-26 09:51] VITALS: BP 128/74; PULSE 70; O2SAT 97; BMI 35.1
== END 2024-02-26 10:17 | disposition home or self-care (01) ==
LOC: HO.HPS 09:45
PROVIDERS: PCP Internal Medicine; Visit Provider Internal Medicine
DX: J44.9 Chronic obstructive pulmonary disease, unspecified (principal); R05.9 Cough, unspecified
CPT/HCPCS: 99213

== ENCOUNTER → 2024-02-26 09:45 | Outpatient (BNVA) | payer OTHER, SELFPAY | PROVIDERS: PCP Internal Medicine; Visit Provider Internal Medicine | DX: R05.3 Chronic cough (principal); J44.9 Chronic obstructive pulmonary disease, unspecified | CPT/HCPCS: 99212 ==

== ENCOUNTER 2024-05-16 13:31 | Outpatient (REF) | payer OTHER, SELFPAY ==
--- OUTSIDE RECORDS SUMMARY | 2024-05-16 15:15 | XMS_ITS | Clinical Summary ---
Author Organization [facility] Address [address] [place] [address] Care Team Providers Care Final Finisher Forging Dies Name Role Phone You Martinez Primary Care Provider + Allergies No known active allergies Medications oxyCODONE IR (ROXICODONE) 5 mg tablet Take 5 mg by mouth every 8 hours as needed. pain 1 Active sertraline (ZOLOFT) 50 mg tablet Take 50 mg by mouth daily. 1 Active traZODone (DESYREL) 100 mg tablet TAKE 1 TABLET BY MOUTH EVERY EVENING BEFORE A MEAL 1 Active metoprolol tartrate (LOPRESSOR) 25 mg tablet TAKE 1 TABLET BY MOUTH TWICE DAILY IN THE MORNING AND IN THE EVENING 1 Active valsartan-hydro chlorothiazide (DIOVAN-HCT) 160-25 mg per tablet Take 1 tablet by mouth daily. 1 Active Alcohol Prep Pads pads, medicated USE DIRECTED EVERY DAY 2 Active OneTouch Ultra test strips TEST BLOOD SUGAR ONCE DAILY DIRECTED 2 Active alendronate (FOSAMAX) 70 mg tablet Take 70 mg by mouth. 2 Active OneTouch Ultra2 Meter misc TEST BLOOD SUGAR ONCE DAILY DIRECTED 1 Active OneTouch Delica Plus Lancet lancet 33 gauge TEST BLOOD SUGAR ONCE DAILY 2 Active Advair Diskus 500-50 mcg/dose inhaler Inhale 1 puff by mouth every 12 hours. 2 Active Ventolin HFA 90 mcg/actuation inhaler 2 puffs every 4 hours as needed. 2 Active albuterol 2.5 mg/3 mL (0.083%) nebulizer solution SMARTSI Ampule(s) Via Nebulizer 3 Times Daily PRN 2 Active cholecalciferol (VITAMIN D3) 1,250 mcg (50,000 unit) capsule Take 1 capsule (50,000 Units total) by mouth once a week. 4 capsule 2 3 Active Active Problems Problem Noted Date Diagnosed Date Encounter for pre-transplant evaluation for chronic liver disease 11/29/2020 Bereavement 11/29/2020 Fatty liver disease, nonalcoholic 11/29/2020 Osteoporosis 07/23/2020 Arthritis 07/23/2020 Resolved Problems Problem Noted Date Diagnosed Date Resolved Date Cirrhosis of liver 07/23/2020 1 Immunizations Name Administration Dates Next Due Covid-19 Vaccine, J&J, Vector-nr, Rs-ad26, PF, 0 .5 mL 07/07/2020 Hepatitis B vaccine (HEPLISAV-B) vaccine 0.5 mL IM 12/03/2020 Influenza, Injectable, [place]in [place] Canine Kidney, Preservative Free, Quadrivalent 02/26/2020 Influenza, Injectable, Quadrivalent, Preservativ e Free 02/07/2019 Pneumococcal Conjugate Vaccine, 13 Valent 2020 Tetanus Toxoid, Reduced Diph theria Toxoid, and Acellular Pertussis Vaccine, Adsorbed 12/03/2020 Social History Tobacco Use Types Packs/Day Years Used Date Smoking Tobacco: Former Cigarettes Q uit: 04/23/2006 Smokeless Tobacco: Never Tobacco Cessation:Counseling Given: Not Answered Alcohol Use Standard Drinks/Week Comments Not Currently 0 (1 standard drink = 0.6 oz pur e alcohol) Comments Unknown Sex and Gender Information Value Date Recorded Sex Assigned at Not on file Legal Sex Female 9:33 AM EDT Gender Identity Not on file Sexual Orientation Not on file Last Filed Vital Signs Vital Sign Reading Time Taken Comments Blood Pressure 145/66 08/01/2022 4:13 PM EDT Pulse 68 08/01/2022 4:13 PM EDT Temperature 36.6 ??C (97.9 ??F) 08/01/2022 4:13 PM ED T Respiratory Rate 20 08/01/2022 4:13 PM EDT Oxygen Saturation 95% 08/01/2022 4:13 PM EDT Inhaled Oxygen Concentration - - Weight 73.7 kg (162 lb 7.7 oz) 08/01/2022 4:13 P M EDT Height 142.2 cm (4' 8 ) 09/03/2020 9:19 AM EDT Body Mass Index 36.43 09/03/2020 9:19 AM EDT Plan of Treatment Health Maintenance Due Date Last Done Comments Osteoporosis Screening 1997 COVID-19 Vaccine (2023-2 5 season) 2023 02/15/2022, 09/12/2021, 03/08/2021, Additional history exists Influenza Vaccine (#1) 2023 , 02/15/2022, 02/01/2021, Additional history exists Alcohol/Substance Use Screening 04/23/2024 Depression Screening and Follow-Up 04/23/2024 Health Care Proxy Review 04/23/2024 Social Drivers of Health Maggie ual Screening 04/23/2024 DTaP,Tdap,and Td Vaccines (3 - Td or Tdap) 12/03/2030 12/03/2020, 08/29/2013, 10/12/2004 Mammogram Discontinued 12/18/2019, 04/24, 05/09/2017 CT Lung Cancer Screening (12 months, previous LungRADS 1 or 2) Discontinued 12/03/2020 Hepatitis B Vaccines Completed 12/03/2020, 09/30/2013, 08/29/2013 Pneumococcal Vaccine: 65+ Years Completed 12/03/2020, 02/08/2017, 12/24/2014, Additional history exists Hepatitis C Screening Completed 05/05/2022 , 05/02/2022, 07/23/2020 Zoster Vaccines Completed 10/30/2022, 0504/2022, 09/16/2014 RSV Vaccine (60+ years old a nd patients) Completed 05/16/2023 Procedures * Due to [place] state law, this organization might not be sharing negative HIV tests. Procedure Name Priority Date/Time Associated Diagnosis Comments HEPATITIS C ANTIBODY W/REFLEX TO HCV RNA, QUANTITATIVE PCR Routine 05/02/2022 4:55 PM EST Liver cirrhosis secondary to [place] (CMS/HCC) (HCC) CT CHEST W CONTRAST Routine 12/03/2020 1 1:40 AM EDT Encounter for pre-transplant evaluation for liver transplant from Last 3 Months or Most Recently Relevant to Health Maintenance Results * Due to [place] state law, this organization might not be sharing negative HIV tests. * Hepatitis C Antibody w/Reflex to HCV RNA, Quantitative PCR (05/02/2022 4:55 PM EST) Hepatitis C Antibody NON-REACT LOUISE NON-REACT LOUISE 05/03/2022 12:16 AM EST [facility] Signal To Cut-Off <0.02 <1.00 05/03/2022 12:16 AM EST [facility] Comment: HCV antibody was non-reactive. There is no laboratory evidence of HCV infection. In most cases, no further action is required. However, if recent HCV exposure is suspected, a test for HCV RNA (test code 44100) is suggested. For additional information please refer to http://education.[employer]/faq/BZU33j9 (This link is being provided for informational/ educational purposes only.) Blood Structure of peripheral vein / Unknown Venipuncture / Unknown 05/02/2022 4:55 PM EST 05/02/2022 5:07 PM EST Narrative [facility]AM - 05/03/2022 12:16 AM EST [facility] Received Date: us Megan Ulloa MD LAB BLOOD ORDERABLES Final Resul t BRE [facility]KH[facility] [address], [place] [address], [place] [phone] [facility] [address], [place] [address], [place] [phone] * CT CHEST W CONTRAST (12/03/2020 11:40 AM EDT) Anatomical Region Laterality Modality Body Computed Tomogra phy 12/07/2020 8:23 PM EDT Impressions 12/07/2020 8:33 PM EDT 1. ??Nonspecific findings which could represent early interstitial lung disease. Attention on follow-up is needed. 2. ??No concerning pulmonary nodules. If this radiology report contains a blank impression section, it is an incomplete radiology report. ??Please contact the interpreting radiologist or applicable radiology division as soon as possible to obtain the completed interpretation. ? Workstation ID: [id number] Narrative 12/07/2020 8:[address] CHEST W CONTRAST CLINICAL INFORMATION: Preop liver transplant. TECHNIQUE: Contrast enhanced CT was performed following administration of intravenous contrast. Axial, coronal and sagittal MPRs, axial MIP and coronal MinIP reformations were performed. CT 4 phase liver was performed concurrently and is reported separately. For radiation dose control at least one of the following techniques was used in this procedure (1) Automated exposure control (2) Adjustment of the mA and/or kV according to patient size (3) Use of iterative reconstruction technique. COMPARISON: None FINDINGS: BASE OF NECK: The thyroid gland appears normal. LUNGS: Subpleural reticulation and mild diffuse interlobular septal thickening is present throughout both lungs which could represent early interstitial lung disease. There is no evidence of volume loss or traction bronchiectasis to suggest interstitial fibrosis. No concerning pulmonary nodules, consolidation or pleural effusion bilaterally.. The trachea and mainstem bronchi are normal in course and caliber with normal hilar branching. No endobronchial lesions evident. MEDIASTINUM: Normal heart size with left atrial enlargement. No significant pericardial effusion. The thoracic aorta is normal in course and caliber. Main and central branch pulmonary arteries are normal in caliber and are well opacified to the segmental level with no evidence of pulmonary embolism. The esophagus appears normal apart from some mild distal wall thickening and suggestion of small paraesophageal varices. NODES: No mediastinal or hilar adenopathy. Symmetric subcentimeter small few lymph nodes in the axilla bilaterally with no chest wall adenopathy. UPPER ABDOMEN: Please see separate report for additional findings in the abdomen and pelvis. Wall thickening of the distal esophagus with small varices. BONES AND CHEST WALL: No osseous lesions. Thoracic spine degenerative changes. Preservation of vertebral body heights. Soft tissues of the chest wall appear normal. Resulting Agency Comment [id number] Procedure Note Daisy Damon MD - 12/07/2020 CT CHEST W CONTRAST CLINICAL INFORMATION: Preop liver transplant. TECHNIQUE: Contrast enhanced CT was performed following administration of intravenouscontrast. Axial, coronal and sagittal MPRs, axial MIP and coronal MinIPreformations were performed. CT 4 phase liver was performed concurrentlyand is reported separately. For radiation dose control at least one of the following techniques wasused in this procedure (1) Automated exposure control (2) Adjustment ofthe mA and/or kV according to patient size (3) Use of iterativereconstruction technique. COMPARISON: None FINDINGS: BASE OF NECK: The thyroid gland appears normal. LUNGS: Subpleural reticulation and mild diffuse interlobular septal thickening ispresent throughout both lungs which could represent early interstitiallung disease. There is no evidence of volume loss or tractionbronchiectasis to suggest interstitial fibrosis. No concerning pulmonarynodules, consolidation or pleural effusion bilaterally.. The trachea andmainstem bronchi are normal in course and caliber with normal hilarbranching. No endobronchial lesions evident. MEDIASTINUM: Normal heart size with left atrial enlargement. No significant pericardialeffusion. The thoracic aorta is normal in course and caliber. Main andcentral branch pulmonary arteries are normal in caliber and are wellopacified to the segmental level with no evidence of pulmonary embolism.The esophagus appears normal apart from some mild distal wall thickeningand suggestion of small paraesophageal varices. NODES: No mediastinal or hilar adenopathy. Symmetric subcentimeter small fewlymph nodes in the axilla bilaterally with no chest wall adenopathy. UPPER ABDOMEN: Please see separate report for additional findings in the abdomen andpelvis. Wall thickening of the distal esophagus with small varices. BONES AND CHEST WALL: No osseous lesions. Thoracic spine degenerative changes. Preservation ofvertebral body heights. Soft tissues of the chest wall appear normal. IMPRESSION: 1. Nonspecific findings which could represent early interstitial lungdisease. Attention on follow-up is needed. 2. No concerning pulmonary nodules. If this radiology report contains a blank impression section, it is anincomplete radiology report. Please contact the interpreting radiologistor applicable radiology division as soon as possible to obtain thecompleted interpretation. Workstation ID: [id number] Megan Ulloa MD IM CT PROCEDURES Final Result from Last 3 Months or Most Recently Relevant to Health Maintenance Insurance MEDICARE MEDICARE Advance Directives Documents on File Type Date Recorded Patient Corner [facility] Health Care Proxy 12/15/2020 6:08 PM 12-03 Care Teams Final Finisher Forging Dies Relationship Specialty Start Date End Date You Martinez [address] [place] [address] PCP - General Internal Medicine 10/06/19
--- OUTSIDE RECORDS SUMMARY | 2024-05-16 15:15 | XMS_ITS ---
Author Organization [facility] Address [address] [place] [address] Care Team Providers Care Manager Wellness Name Role Phone Judith Rader MD, You Primary Care Provide Chico Mckeon [phone] ALLERGIES No Known Allergies REASON FOR VISIT Patient presents today for cirrhosis MEDICATIONS Medication SIG (Take, Route, Frequency, Duration) Notes Start Date End Date Status Ursodiol 300 MG 2 Orally BID for 30 days Active Ursodiol 300 MG 2 Orally Twice a day for 30 day(s) 05/02/2022 Active Ursodiol 300 MG 2 Orally Twice a day for 30 day(s) 05/19/2021 Active oxyCODONE HCl 5 MG (Schedule II Drug) T SANDRA 1 TABLET BY MOUTH EVERY 8 HOURS NEEDED FOR PAIN Oral for 10 Active Advair Diskus Active OneTouch Ultra - In Vitro for 50 Active Alendronate Sodium 70 MG Oral for 28 Active Metoprolol Tartrate 25 MG Oral for 30 Active Valsartan-hydroCHLOROthiazi de 160-25 MG Oral for 30 Active Sertraline HCl 50 MG Oral for 30 Active Ursodiol 300 MG Oral for 30 Ac tive traZODone HCl 100 MG Oral for 30 Active VITAL SIGNS BMI 34.99 kg/m2 11/15/2023 Blood pressure systolic 00 mm Hg 11/15/19 24 Blood pressure diastolic 00 mm Hg 024 Height 57.75 in 11/15/2023 Weight 166 lbs 11/15/2023 Encounters Encounter Location Date Provider [facility] [address] [place] [address] 11/15/2023 Chico Johns Cirrhosis K74.60 and Fatty liver K76.0 ASSESSMENTS Encounter Date Diagnosis Assessment Notes Treatment Notes Treatment Clinical Notes 11/15/2023 Cirrhosis (ICD-10 - K74.60) 11/15/2023 Fatty liver (ICD-10 - K76.0) PLAN OF TREATMENT Medication Medication Name Sig Start Date Stop Date Notes Ursodiol 300 MG 2 Orally BID for 30 days 03/17/2020 Pending Test Test Name Order Date LIVER PROFILE 11/15/2023 CBC w DIFF 11/15/2023 ALPHA-FETOPROTEIN,TUMOR MARKER Prothrombin Time INR 11/15/2023 Liver Fibrosis Pnl 11/15/2023 Next Appt Details Follow Up: 1 Year, Reason: Provider Name:Chico Johns , 11/12/2024 01:20:00 PM, [address], [address], [place], [address], Progress Notes * Examination Category Sub-Category Detail Notes General Examination GENERAL APPEARANCE: pleasant , well nourished, well developed, in no acute distress he will EYES: sclera non-icteric NECK/THYROID: no cervical lymphade nopathy, neck supple HEART: S1, S2 normal LUNGS: clear to auscultatio n bilaterally ABDOMEN: normal bowel sounds, no guarding or rigidity, no hepatosplenomegaly, no masses palpable, soft, nontender, nondistended. NEUROLOGIC: alert and oriented SKIN: nonjaundiced, no spi len angiomata. EXTREMITIES: no edema ORAL CAVITY: mucosa moist
--- OUTSIDE RECORDS SUMMARY | 2024-05-16 15:15 | XMS_ITS | Encounter Summary ---
Author Organization [facility] [facility] Address [address] [place] [address] Care Team Providers Care Certified Professional Ergonomist Name Role Phone You Bedolla MD Primary Care Provide r Reason for Visit * Reason Onset Date Comments Durable Medical Equipment 02/14/2024 Encounter Details Date Type Department Care Team ([facility] st Contact Info) Description 02/14/2024 Telephone [facility] MEDICINE [address] [place] [address] You Bedolla MD [address] [place] [address] Durable Medical Equipment Social History Tobacco Use Types Packs/Day Years Used Date Smoking Tobacco: Former Cigarettes Q uit: 2012 Passive Smoke Exposure: Past Smokeless Tobacco: Never Alcohol Use Standard Drinks/Week Comments Never 0 (1 standard drink = 0.6 oz pur e alcohol) Depression Answer Date Recorded Patient Health Questionnaire-9 Score 13 05/15/2023 Patient Health Questionnaire-9 Score 13 05/15/2023 Last PHQ-9: Questionnaire Data Not on file 0 05/15/2023 Housing Stability Answer Date Recorded What is your housing situation today? I have nick whitley 05/04/[address] you li ve. Do you have problems with any of the following? None of the above 05/04/2023 Food Insecurity Answer Date Recorded Within the past 12 months, y ou worried that your food would run out before you got money to buy more: Often true 05/04/2023 Within the past 12 months,th e food you bought just didn't last and you didn't have enough money to get more: Often true 03/2024 Transportation Answer Date Recorded In the past 12 months, has l ack of transportation kept you from medical appts, meetings, work or from getting things needed for daily living? No 05/04/2023 Utilities Answer Date Recorded In the past 12 months, has t he electric, gas, oil or water company threatened to shut off services in your home? No 05/04/2023 Depression Answer Date Recorded Patient Health Questionnaire-2 Score 3 05/15/2023 Comments Unknown Sex and Gender Information Value Date Recorded Sex Assigned at Female 02/20/2022 10:15 AM EDT Legal Sex Female 10:15 AM EDT Gender Identity Female 02/20/2022 10:15 AM EDT Sexual Orientation Straight 02/20/2022 10 :15 AM EDT documented as of this encounter Miscellaneous Notes * Telephone Encounter - Braulio Sutherland - 02/14/2024 9:53 AM EDT Tc from [facility] with [facility] requesting a script for life line support. Please contact at [phone] documented in this encounter Plan of Treatment Upcoming Encounters Date Type Department Care Team (Late st Contact Info) Description 05/26/2024 10:00 AM EST Office Visit [facility] ADULT DENTAL [address] [place] [address] Mau Macdonald DDS [address] [place] [address] 07/08/2024 2:00 PM EDT Office Visit [facility] MEDICINE [address] [place] [address] You Bedolla MD [address] [place] [address] documented as of this encounter Goals Goal Patient Goal Type Associated Problems Recent Progress Patient-Stated? Author Blood Pressure < 140/90 Blood Pressure Essential hypertension 140/84(2023 2:32 PM EST) No Charles Myrick, PharmD documented as of this encounter Visit Diagnoses Not on filedocumented in this encounter Additional Health Concerns Assessment Noted Time PHQ-9 Depression Total Score: 13 024 1:37 PM EST documented as of this encounter Care Teams Certified Professional Ergonomist Relationship Specialty Start Date End Date You Bedolla MD [address] [place] [address] PCP - General Internal Medicine 05/27/14 documented as of this encounter
--- OUTSIDE RECORDS SUMMARY | 2024-05-16 15:15 | XMS_ITS | Patient Health Record ---
Author Organization [facility] Address [address] [place] [address] Care Team Providers Care Orchard Pruner Name Role Phone Judith Rader MD, You Primary Care Provide r Chico Escudero Unavailable [phone] ALLERGIES No Known Allergies RESULTS Component Value Reference Range Notes Complete Blood Count Auto Di ff Reviewed date:11/23/2023 11:38:28 PM Interpretation: Performing Lab:[facility], [address] [place] [phone] Notes/Report: White Blood Count 10.2 4.8-10.8 X10*3/uL Red Blood Count 5.20 4.20-5.50 X10*6/uL Hemoglobin 15.5 12.0-16.0 g/dl Hematocrit 46.1 37.0-47.0 % Mean Corpuscular Volume 88.7 80.0-98.0 fL Mean Corpuscular Hemoglobin 29.8 27.0-33.0 pg Mean Corpuscular HGB Conc 33.6 31.0-35.0 g/dl Red Cell Distribution Width 13.9 11.0-16.0 % Platelet Count 140 160-400 X10*3/uL Mean Platelet Volume 11.9 9.4-12.3 fL Neutrophils Percent Auto 53.5 45-73 % Imm Gran Pct Auto 0.4 0.0-0.4 % Lymphocytes Percent Auto 33.0 20-40 % Monocytes Percent Auto 10.3 2-11 % Eosinophils Percent Auto 2.1 0-4 % Basophils Percent Auto 0.7 0-2 % NRBC Pct Auto 0.0 0.0-0.2 /100WBC Neutrophils Absolute Auto 5.5 2.0-8.3 x10*3/u L Imm Gran Abs Auto 0.04 0.00-0.03 X10*3/uL Lymphocytes Absolute Auto 3.4 1.2-4.9 X10*3/u L Monocytes Absolute Auto 1.1 0.1-1.2 X10*3/uL Eosinophils Absolute Auto 0.2 0.0-0.4 X10*3/u L Basophils Absolute Auto 0.1 0.0-0.2 X10*3/uL NRBC Abs Auto 0.000 0.0-0.012 X10*3/uL Prothrombin Time INR Reviewed date:11/15/2023 07:42:47 PM Interpretation: Performing Lab:[address] [phone] Notes/Report: Prothrombin Time 13.8 11.1-13.3 SEC INTERNATIONAL NORM RATIO 1.1 0.9-1.1 INTERNATIONAL NORMALIZED RATIO (INR) REFERENCE RANGES Reference Range For patients not on anticoagulant therapy: 0.9 - 1.1 INR ranges for oral anticoagulant therapy: For prevention and treatment of venous thrombosis and pulmonary embolism: 2.0 - 3.0 For acute myocardial infarction with aspirin therapy: 2.0 - 3.0 For acute myocardial infarction without aspirin therapy: 3.0 - 4.0 For patients with mechanical prosthetic heart valves: 2.5 - 3.5 Liver Panel Reviewed date:11/24/2023 07:13:21 PM Interpretation: Performing Lab:[facility], [address] [place] [phone] Notes/Report: Bilirubin Total 1.2 0.0-1.0 mg/dL Bilirubin Direct 0.3 0.0-0.5 mg/dL Aspartate Amino Transferase 56 5-31 U/L Alanine Aminotransferase 52 0-31 U/L Total Protein 8.6 6.5-8.0 g/dL Albumin Level 4.3 3.5-5.0 g/dL Alkaline Phosphatase 143 39-117 U/L Alpha Fetoprotein Reviewed date:11/24/2023 07:13:47 PM Interpretation: Performing Lab:[facility], [address] [place] [phone] Notes/Report: Alpha Fetoprotein 8.0 Reference Range: <6.1 The use of AFP as a tumor marker in females is not recommended. This test was performed using the Jerily[place] chemiluminescent method. Values obtained from different assay methods cannot be used interchangeably. AFP levels, regardless of value, should not be interpreted as absolute evidence of the presence or absence of disease. THIS TEST WAS PERFORMED AT: [employer] [address] [place] [phone] LIVIER OVALLE MD Liver Fibrosis Pnl Reviewed date:11/23/2023 11:35:47 PM Interpretation: Performing Lab:[facility], [address] [place] [phone] Notes/Report: Liver Fibrosis Score 0.93 Liver Fibrosis Stage F4 Liver Fibrosis Interpretation SEE NOTE severe fibrosis Fibro Test Score (f) Metavir Score f>=0 and f<=0.21 : F0 (no fibrosis) f>0.21 and f<=0.27 : F0-F1 (no fibrosis) f>0.27 and f<=0.31 : F1 (minimal fibrosis) f>0.31 and f<=0.48 : F1-F2 (minimal fibrosis) f>0.48 and f<=0.58 : F2 (moderate fibrosis) f>0.58 and f<=0.72 : F3 (advanced fibrosis) f>0.72 and f<=0.74 : F3-F4 (advanced fibrosis) f>0.74 and f<=1.00 : F4 (severe fibrosis) Nec Inflam Act Score 0.48 Nec Inflam Act Grade A1-A2 Nec Inflam Act Interpretation SEE NOTE minimal activity ActiTest Score (a) Metavir Score a>=0 and a<=0.17 : A0 (no activity) a>0.17 and a<=0.29 : A0-A1 (no activity) a>0.29 and a<=0.36 : A1 (minimal activity) a>0.36 and a<=0.52 : A1-A2 (minimal activity) a>0.52 and a<=0.60 : A2 (significant activity) a>0.60 and a<=0.62 : A2-A3 (significant activity) a>0.62 and a<=1.00 : A3 (severe activity) CLV-Ahfpr-6-Macroglobulin 470 106-279 mg/dL FIB-Haptoglobin 40 43-212 mg/dL FIB-Apolipoprotein A1 175 101-198 mg/dL FIB-Total Bilirubin 1.1 0.2-1.2 mg/dL FIB-GGT 161 3-65 U/L FIB-ALT 46 6-29 U/L Reference ID [id number] Footnote SEE NOTE The reliability of results is dependent on compliance with the preanalytical and analytical conditions recommended by theRightAPIredictive. The tests have to be deferred for: acute hemolysis, acute hepatitis, acute inflammation, extra hepatic cholestasis. The advice of a specialist should be sought for interpretation in chronic hemolysis and Gilbert's syndrome. The test interpretation is not validated in liver transplant patients. Isolated extreme values of one of the components should lead to caution in interpreting the results. In case of discordance between a biopsy result and a test, it is recommended to seek the advice of a specialist. The causes of these discordances could be due to a flaw of the test or to a flaw in the biopsy: i.e. a liver biopsy has a 33% variability rate for one fibrosis stage. FibroTest is interpretable for chronic hepatitis B and C, alcoholic and non alcoholic steatosis. ActiTest is interpretable for chronic hepatitis B and C. The performance characteristics have been determined by [facility]. It has not been cleared or approved by the U.S. Food and Drug Administration. Performance characteristics refer to the analytical performance of the test. [employer], the associated logo, [employer] and all associated [employer] barry are the registered trademarks of [employer]. All third alliance party barry - (R) and (TM) - are the property of their respective owners. (C) 0219-2636 [employer]. All rights reserved. THIS TEST WAS PERFORMED AT: [employer] [facility] [address] [place] [address] STEVEN VELAZQUEZ MD,PHD,MANOJ REASON FOR REFERRAL No Information MEDICATIONS Medication SIG (Take, Route, Frequency, Duration) Notes Start Date End Date Status OneTouch Ultra - In Vitro for 50 Active Alendronate Sodium 70 MG Oral for 28 Active Metoprolol Tartrate 25 MG Oral for 30 Active Valsartan-hydroCHLOROthiazi de 160-25 MG Oral for 30 Active Ursodiol 300 MG 2 Orally BID for 30 days 0 Active Sertraline HCl 50 MG Oral for 30 Active Ursodiol 300 MG Oral for 30 Ac tive traZODone HCl 100 MG Oral for 30 Active Ursodiol 300 MG 2 Orally Twice a day for 30 day(s) 05/02/2022 Active Ursodiol 300 MG 2 Orally Twice a day for 30 day(s) 05/19/2021 Active oxyCODONE HCl 5 MG (Schedule II Drug) T SANDRA 1 TABLET BY MOUTH EVERY 8 HOURS NEEDED FOR PAIN Oral for 10 Active Advair Diskus Active IMMUNIZATIONS Vaccine Route Administration Date Status Comme nts Influenza Unknown 12/22/2018 Administered Influenza Unknown 12/23/2019 Administered Influenza Unknown 12/22/2020 Administered SOCIAL HISTORY Sex Assigned At : Social History Observation Description Sex Assigned At Unknown PROBLEMS Problem Type ICD Code Onset Dates Problem Status W/U Status Risk SNOMED Code Notes Problem Encounter for screening for malignant neoplasm of colon (Z12.11) Active confirmed 532769113 Problem History of adenomatous polyp of colon (Z86.010) Active confirmed 982405076 Problem Hypertension (I10) Active confirmed 15606903 Problem Other cirrhosis of liver (K74.69) Active confirmed 82017630 Problem Elevated liver function tests (R79.89) Active confirmed 717257805 Problem Elevated liver enzymes (R74.8) Active confirmed 154202362 Problem Fatty liver (K76.0) Active confirmed 037787649 Problem Elevated alpha-fetoprotein (R77.2) Active confirmed 783113707 Problem Cirrhosis (K74.60) Active confirmed Cirrhotic (641575853) Problem 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 confirmed Serum alpha-fetoprotein level elevated (961308204) Problem Abnormal MRI, liver (R93.2) Active confirmed 880664193 Problem Liver fibrosis (K74.0) Active confirmed 38422187 Problem Diverticulosis of colon (K57.30) Active confirmed Diverticulosi s of colon (790556098) VITAL SIGNS Blood pressure diastolic 00 mm Hg 11/15/2023 Height 57.75 in 11/15/2023 Blood pressure systolic 00 mm Hg 11/15/2023 Weight 166 lbs 11/15/2023 BMI 34.99 kg/m2 11/15/2023 Encounters Encounter Location Date Provider Diagnosis [facility] [address] [place] [address] 11/15/2023 Chico Johns Cirrhosis K74.60 and Fatty liver K76.0 [facility] [address] [place] [address] 11/15/2023 Chico Johns ASSESSMENTS Encounter Date Diagnosis Assessment Notes Treatment Notes Treatment Clinical Notes 11/15/2023 Fatty liver (ICD-10 - K76.0) 11/15/2023 Cirrhosis (ICD-10 - K74.60) PLAN OF TREATMENT Pending Test Test Name Order Date CBC With Differential/Platelet 1 Prothrombin Time (PT) 01/05/2011 Sedimentation Rate-Westergren 01/05/2011 Mitochondrial (M2) Antibody 01/05/2011 MARLA Comprehensive Panel 01/05/2011 Liver Function Test (LFT) 01/05/2011 BUN 04/12/2020 BUN 09/20/2019 BUN 11/14/2022 CREATININE 04/12/2020 CREATININE 09/20/2019 LIVER PROFILE 05/21/2020 LIVER PROFILE 02/16/2016 LIVER PROFILE 04/12/2020 LIVER PROFILE 11/15/2023 LIVER PROFILE 08/01/2016 LIVER PROFILE 11/14/2022 LIVER PROFILE 08/28/2019 LIVER PROFILE 05/17/2021 LIVER PROFILE 10/03/2017 CBC w DIFF 11/14/2022 CBC w DIFF 08/28/2019 CBC w DIFF 05/17/2021 CBC w DIFF 10/03/2017 CBC w DIFF 04/12/2020 CBC w DIFF 11/15/2023 PROTHROMBIN TIME (PT, INR) 08/28/2019 PROTHROMBIN TIME (PT, INR) 05/17/2021 PROTHROMBIN TIME (PT, INR) 10/03/2017 ALPHA-FETOPROTEIN,TUMOR MARKER 3 ALPHA-FETOPROTEIN,TUMOR MARKER 0 ALPHA-FETOPROTEIN,TUMOR MARKER 8 ALPHA-FETOPROTEIN,TUMOR MARKER 0 ALPHA-FETOPROTEIN,TUMOR MARKER 4 MRI ABD W&WO CONTRAST 09/20/2019 MRI ABD W&WO CONTRAST 04/12/2020 MRI ABD W&WO CONTRAST 11/14/2022 US ABD 10/03/2017 Prothrombin Time INR 04/12/2020 Prothrombin Time INR 11/15/2023 Liver Fibrosis Pnl 11/15/2023 Future Test Test Name Order Date COLONOSCOPY 01/18/2016 UPPER GI ENDOSCOPY 05/21/2020 COLONOSCOPY 05/17/2021 Next Appt Details Provider Name:Chico Johns , 11/12/2024 01:20:00 PM, [address], [address], [place], [address], Insurance Providers Payer Name Payer Address Payer Phone Subscriber Number Group Number Insured Name Patient Relationship to Insured Coverage Start Date Coverage End Date [facility] [address] Attn Claims MARGARITA Smith [id number] JAREN BUI Self - patient is the insured MEDICAL (GENERAL) HISTORY Medical History History ICD Code Hyperlipidemia Hypertension Depression GERD Denies MO,DM,CVA,Lung disease,renal dise ase Tubular adenoma removed by Dr. Cardoso in 2002 Fatty liver-liver biopsy 2010 with moderate inflammation and periportal/septal fibrosis. Previous hepatitis B and C studies were negative and iron studies were normal in July 2010, with an iron saturation of 17%--her ferritin was 423, but I felt that was in relation to her ongoing steatohepatitis. Negative autoimmune studies in 01/2013 Negative colonoscopy in 2010 and in 10/10 16 Abnormal MRI of her liver in September of 2019--there were some changes of cirrhosis and 3 small 1-2 cm questionable arterial-enhancing lesions without pseudocapsule formation that were felt to be unlikely to represent hepatoma, although her alpha-fetoprotein level was up to 10.4. Her followup MRI in April of 2020 appeared stable with one lesion appearing smaller, one lesion appearing stable, and the third lesion not being visible. The radiologist felt that the MRI was still not suspicious for hepatoma. Her alpha-fetoprotein level remained slightly elevated 11.3. Diet-controlled DM COVID in 2020 Urinary incontinence EGD in 06/2020 was negative f or varices--small hiatal hernia and minimal gastritis--biopsies negative for H. pylori Being followed at [facility] live r transplant clinic since 2020 in regard to her cirrhosis and questionable liver lesions. In November of [address] [facility] advised us that she is not a transplant candidate given her age and stable liver disease. Negative screening colonosco py in June of 2021, although the prep was somewhat suboptimal MRI of the abdomen in 2022 and 02/2023 revealed her known cirrhosis and a single 9 mm lesion in the right hepatic lobe which basically appeared stable as compared to previous imaging studies. There was no evidence of biliary disease, splenomegaly, nor any reported ascites, Surgical History Surgery Date(Month/Year) Tubal ligation Benign breast biopsies
--- OUTSIDE RECORDS SUMMARY | 2024-05-16 15:15 | XMS_ITS ---
Author Organization [facility] Address [address] [place] [address] Care Team Providers Care Fitter'S Assistant Name Role Phone Judith Rader MD, You Primary Care Provide r Chico Escudero Unavailable [phone] ALLERGIES No Known Allergies RESULTS Component Value Reference Range Notes Prothrombin Time INR Reviewed date:11/19/2022 06:35:45 PM Interpretation: Performing Lab:[facility], [address] [place] [phone] Notes/Report: Prothrombin Time 13.6 11.1-13.3 SEC INTERNATIONAL NORM RATIO 1.1 0.9-1.1 [...] mechanical prosthetic heart valves: 2.5 - 3.5 Creatinine Reviewed date:11/19/2022 06:35:55 PM Interpretation: Performing Lab:[facility], [address] [place] [phone] Notes/Report: Creatinine 0.78 0.5-1.4 mg/dL Estimated Glomerular Filt Rate > 60 NOTE: For -Swedish individuals, multiply the result by 1.210. Chronic Kidney Disease: Estimated GFR < 60 mL/min/1.73m2 Severe Kidney Disease: Estimated GFR < 15 mL/min/1.73m2 REASON FOR VISIT Patient presents today for cirrhosis MEDICATIONS Medication SIG (Take, Route, Frequency, Duration) Notes Start Date End Date Status Ursodiol 300 MG 2 Orally Twice a day for 30 day(s) 05/02/2022 Active Ursodiol 300 MG 2 Orally Twice a day for 30 day(s) 05/19/2021 Active Advair Diskus Active Sertraline HCl 50 MG Oral for 30 Active OneTouch Ultra - In Vitro for 50 Active Alendronate Sodium 70 MG Oral for 28 Active Metoprolol Tartrate 25 MG Oral for 30 Active Valsartan-hydroCHLOROthiazi de 160-25 MG Oral for 30 Active Ursodiol 300 MG Oral for 30 Ac tive traZODone HCl 100 MG Oral for 30 Active oxyCODONE HCl 5 MG (Schedule II Drug) T SANDRA 1 TABLET BY MOUTH EVERY 8 HOURS NEEDED FOR PAIN Oral for 10 Active VITAL SIGNS BMI 34.78 kg/m2 11/14/2022 Blood pressure systolic 000 mm Hg 11/15/19 Blood pressure diastolic 00 mm Hg 023 Height 57.75 in 11/14/2022 Temperature 98 degrees Fahrenheit 11/14/2022 Weight 165 lbs 11/14/2022 Encounters Encounter Location Date Provider Diagnosis [facility] [address] [place] [address] 11/14/2022 Chico Johns Other cirrhosis of liver K74.69 ; Abnormal MRI, liver R93.2 and Elevated alpha fetoprotein R77.2 ASSESSMENTS Encounter Date Diagnosis Assessment Notes Treatment Notes Treatment Clinical Notes 11/14/2022 Other cirrhosis of liver (ICD-10 - K74.69) 11/14/2022 Abnormal MRI, liver (ICD-10 - R93.2) 11/14/2022 Elevated alpha fetoprotein (ICD-10 - R77.2) PLAN OF TREATMENT Pending Test Test Name Order Date BUN 11/14/2022 LIVER PROFILE 11/14/2022 CBC w DIFF 11/14/2022 ALPHA-FETOPROTEIN,TUMOR MARKER MRI ABD W&WO CONTRAST 11/14/2022 Next Appt Details Follow Up: 1 Year, Reason: Provider Name:Chico Johns , 11/12/2024 01:20:00 PM, [address], [address], [place], [address], Progress Notes * Examination Category Sub-Category Detail [...]
--- OUTSIDE RECORDS SUMMARY | 2024-05-16 15:15 | XMS_ITS | Referral Summary ---
Author Organization [facility] Address [address] [place] [address] Care Team Providers Care Journeyman Meat Cutter Name Role Phone You Martinez Primary Care [...] 0.5 mL IM 12/03/2020 Influenza, Injectable, Madin [place] Canine Kidney, Preservative Free, Quadrivalent 02/26/2020 Influenza, [...] 09/03/2020 9:19 AM EDT Plan of Treatment Not on file Procedures * Due to [place] law, this organization might not be sharing [...] to Health Maintenance Results * Due to [place] law, this organization might not be sharing negative HIV tests. * Hepatitis C Antibody w/Reflex to HCV RNA, Quantitative PCR (05/02/2022 4:55 PM EST) Hepatitis C Antibody NON-REACT LOUISE NON-REACT LOUISE 05/03/2022 12:16 AM EST [facility] Signal To Cut-Off <0.02 <1.00 05/03/2022 12:16 AM EST [employer] Comment: HCV antibody was non-reactive. There is no laboratory evidence of HCV infection. In most cases, no further action is required. However, if recent HCV exposure is suspected, a test for HCV RNA (test code 19397) is suggested. For additional information please refer to http://education.[employer]/faq/EXL49q9 (This link is being provided for informational/ educational purposes only.) Blood Structure of peripheral vein / Unknown Venipuncture / Unknown 05/02/2022 4:55 PM EST 05/02/2022 5:07 PM EST Narrative [facility] - 05/03/2022 12:16 AM EST [facility] Received Date: Megan Ulloa MD LAB BLOOD ORDERABLES Final Resul t [facility] [place] [address], [address] [place] [address], [place] [phone] [employer] [facility] [address], [address] [place] [address], [place] [phone] * CT CHEST W CONTRAST (12/03/2020 11:40 [...] obtain the completed interpretation. ? Workstation ID: [id number] Narrative 12/07/2020 8:[address] CHEST [...] chest wall appear normal. Resulting Agency Comment [id number] Procedure Note Daisy Damon MD - 12/07/2020 [...] possible to obtain thecompleted interpretation. Workstation ID: [id number] Megan Ulloa MD IMG CT PROCEDURES Final Result from Last 3 Months or Most Recently Relevant to Health Maintenance Insurance MEDICARE [facility] MEDICARE [facility] Advance Directives Documents on File Type Date Recorded Patient Management Accounts Manager Expl [facility] Care Proxy 12/15/2020 6:08 PM 12-03 Care Teams Journeyman Meat Cutter Relationship Specialty Start Date End Date You Martinez [address] [place] [address] PCP - General Internal Medicine 10/06/19
--- OUTSIDE RECORDS SUMMARY | 2024-05-16 15:15 | XMS_ITS | Encounter Summary ---
Author Organization [facility] Address [address] [place] [address] [address] [place] [address] Care Team Providers Care Distresser Name Role Phone You Bedolla MD Primary Care Provide r Encounter Details Date Type Department Care Team (Latest Contact Info) Description 09/02/2018 Abstract [facility] CONVERSIONS Dental, Provider, DDS Social History Tobacco Use Types Packs/Day Years Used Date Smoking Tobacco: Never Assessed Comments Unknown Sex and Gender Information Value Date Recorded Sex Assigned at Female 02/20/2022 10:15 AM EDT Legal Sex Female 10:15 AM EDT Gender Identity Female 02/20/2022 10:15 AM EDT Sexual Orientation Straight 02/20/2022 10 :15 AM EDT documented as of this encounter Plan of Treatment Upcoming Encounters Date Type Department Care Team (Late st Contact Info) Description 05/26/2024 10:00 AM EST Office Visit [facility] ADULT DENTAL [address] [place] [address] Mau Macdonald DDS [address] [place] [address] 07/08/2024 2:00 PM EDT Office Visit [facility] MEDICINE [address] [place] [address] You Bedolla MD [address] [place] [address] documented as of this encounter Visit Diagnoses Not on filedocumented in this encounter Care Teams Distresser Relationship Specialty Start Date End Date You Bedolla MD [address] [place] [address] PCP - General Internal Medicine 05/27/14 documented as of this encounter
--- OUTSIDE RECORDS SUMMARY | 2024-05-16 15:16 | XMS_ITS | Encounter Summary ---
Author Organization [facility] Address [address] [place] [address] Care Team Providers Care Gas Usage Meter Clerk Name Role Phone You Bedolla MD Primary Care Provide r Reason for Visit * Reason Onset Date Comments Durable Medical Equipment 04/17/2024 Encounter Details Date Type Department Care Team ([facility] st Contact Info) Description 04/17/2024 Telephone [facility] MEDICINE [address] [place] [address] You Bedolla MD [address] [place] [address] Durable Medical Equipment Social History Tobacco Use [...] encounter Miscellaneous Notes * Telephone Encounter - Meri Parham [place] - 04/17/2024 2:48 PM EST Received confirmation from Kiara in regards to washcloth, sent to to scan. LB documented in this encounter Plan of Treatment Upcoming Encounters Date Type Department Care Team (Late st Contact Info) Description 05/26/2024 10:00 AM EST Office Visit [facility] ADULT DENTAL [address] [place] [address] Mau Macdonald DDS [address] [place] [address] 07/08/2024 2:00 PM EDT Office Visit [facility] MEDICINE [address] [place] [address] You Bedolla MD [address] [place] [address] documented as of this encounter Goals Goal [...] documented as of this encounter Care Teams Gas Usage Meter Clerk Relationship Specialty Start Date End Date You Bedolla MD [address] [place] [address] PCP - General Internal Medicine 05/27/14 documented as of this encounter
--- OUTSIDE RECORDS SUMMARY | 2024-05-16 15:16 | XMS_ITS | Encounter Summary ---
Author Organization [facility] Address [address] [place] [address] [address] [place] [address] Care Team Providers Care Pipe Puller Name Role Phone You Bedolla MD Primary Care Provide r Encounter Details Date Type Department Care Team (Late Contact Info) Description 09/28/2022 [facility] Information Management [address] [place] [address] You Bedolla MD [address] [place], [place] [phone] Social History Tobacco Use Types Packs/Day Years Used Date Smoking Tobacco: Former Cigarettes Q uit: 2012 Passive Smoke Exposure: Never Smokeless Tobacco: Never Alcohol Use Standard Drinks/Week Comments Never 0 (1 standard drink = 0.6 oz pur e alcohol) Depression Answer Date Recorded Patient Health Questionnaire-2 Score 0 04/20/2022 Comments Unknown Sex and Gender Information Value Date Recorded Sex Assigned at Female 02/20/2022 10:15 AM EDT Legal Sex Female 10:15 AM EDT Gender Identity Female 02/20/2022 10:15 AM EDT Sexual Orientation Straight 02/20/2022 10 :15 AM EDT COVID-19 Exposure Response Date Recorded In the last 10 days, have yo u been in contact with someone who was confirmed or suspected to have Coronavirus/COVID-19? No / Unsure 09/07/2022 1:46 PM EDT documented as of this encounter Plan of Treatment Upcoming Encounters Date Type Department Care Team (Late st Contact Info) Description 05/26/2024 10:00 AM EST Office Visit [facility] ADULT DENTAL [address] [place], [place] [phone] Mau Macdonald DDS [address] [place] [address] 07/08/2024 2:00 PM EDT Office Visit [facility] MEDICINE [address] [place], [place] [phone] You Bedolla MD [address] [place], [place] [phone] documented as of this encounter Goals Goal Patient Goal Type Associated Problems Recent Progress Patient-Stated? Author Blood Pressure < 140/90 Blood Pressure Essential hypertension 140/84(2023 2:32 PM EST) No Charles Myrick, PharmD documented as of this encounter Visit Diagnoses Not on filedocumented in this encounter Care Teams Pipe Puller Relationship Specialty Start Date End Date You Bedolla MD [address] [place], [place] [phone] PCP - General Internal Medicine 05/27/14 documented as of this encounter
--- OUTSIDE RECORDS SUMMARY | 2024-05-16 15:16 | XMS_ITS | Clinical Summary ---
Author Organization [employer] Address [address] [facility] [facility] [address] [place] [address] Care Team Providers Care Pharmacy Billing Adjudicator Name Role Phone You Bedolla MD Primary Care Provide r Allergies Active Allergy Reactions Criticality Noted Date Comments Yash Inhibitors Cough 04/20/2010 Medications OneTouch Ultra test stripIndications :Type 2 diabetes mellitus without complications ([facility]) TEST BLOOD SUGAR ONCE DAILY DIRECTED 50 strip 11 04/04/20 22 Active albuterol (2.5 MG/3ML) 0.083% nebulizer solution INHALE 1 AMPULE USING A NEBULIZER THREE TIMES DAILY NEEDED 07/29/19 22 Active Ventolin HFA 108 (90 Base) MCG/ACT inhaler INHALE 2 PUFFS BY MOUTH EVERY 4 TO 6 HOURS NEEDED SHORTNESS OF BREATH 10/19/19 22 Active Advair Diskus 500-50 MCG/ACT aerosol powder INHALE 1 PUFF BY MOUTH TWICE DAILY. RINSE MOUTH AFTER USING. 05/25/19 23 Active sertraline (Zoloft) 50 MG tablet 05/18/19 21 Active traZODone (Desyrel) 100 MG tablet 07/13/19 21 Active naloxone (Narcan) 4 mg/0.1 mL nasal spray Administer 0.1 mL into affected nostril(s). 03/01/20 22 Active Alcohol Swabs (Alcohol Prep) 70 % pads USE DIRECTED EVERY DAY 05/25/19 23 Active Oral Medication Containers misc USE DIRECTED 07/20/19 23 Active Lancets (OneTouch Delica Plus [id number]) miscIndications: Type 2 diabetes mellitus without complications ([facility]) TEST BLOOD SUGAR ONCE DAILY 100 each 11 09/12/19 23 Active senna (Senokot) 8.6 MG tabletIndication s:Constipation, unspecified constipation type TAKE 2 TABLETS BY MOUTH EVERY DAY AT BEDTIME 120 tablet 07/10/19 24 Active capsaicin (Capzasin-HP) 0.1 % creamIndications :Chronic bilateral low back pain without sciatica,Low back pain at multiple sites Apply thin layer by topical route up to 4 times daily as needed for pain. 45 g 3 10/02/19 24 Active Diclofenac Sodium 1 % gelIndications:C hronic bilateral low back pain without sciatica,Low back pain at multiple sites Apply thin layer by topical route (quantity as directed on package insert) to affected area of pain 3 times daily as needed. 50 g 3 10/02/19 24 Active docusate sodium (Colace) 100 MG capsuleIndicatio ns:Constipation, unspecified constipation type TAKE 1 CAPSULE BY MOUTH TWICE DAILY IN THE MORNING AND AT BEDTIME 60 capsule 2 11/12/19 24 Active metoprolol tartrate (Lopressor) 25 MG tablet TAKE 1 TABLET BY MOUTH TWICE DAILY IN THE MORNING AND IN THE EVENING 180 tablet 1 02/12/20 24 Active valsartan-hydroC HLOROthiazide (Diovan-HCT) 160-25 MG tablet TAKE 1 TABLET BY MOUTH EVERY MORNING 90 tablet 1 02/12/20 24 Active clotrimazole (Lotrimin) 1 % creamIndications :Tinea cruris Apply to affected areas twice daily 30 g 5 04/08/20 24 Active alendronate (Fosamax) 70 MG tabletIndication s:Osteoporosis, unspecified osteoporosis type, unspecified pathological fracture presence take 1 tablet by mouth once a week with 6 to 8 oz of water 30 min before first food of day. do not lie down for 30 minutes 12 tablet 1 05/06/19 25 Active oxyCODONE (Roxicodone) 5 MG immediate release tabletIndication s:Low back pain at multiple sites Take 1 tablet (5 mg) by mouth every 8 (eight) hours if needed for severe pain. 60 tablet 05/15/19 25 Active alendronate (Fosamax) 70 MG tabletIndication s:Osteoporosis, unspecified osteoporosis type, unspecified pathological fracture presence take 1 tablet once a week with 6 to 8 oz of water 30 min before first food of day. do not lie down for 30 minutes. 12 tablet 1 11/12/19 24 2024 Discontinued oxyCODONE (Roxicodone) 5 MG immediate release tabletIndication s:Low back pain at multiple sites Take 1 tablet (5 mg) by mouth every 8 (eight) hours if needed for severe pain. 60 tablet 04/08/20 24 2024 Discontinued(R eorder (will not trigger notification to Pharmacy)) Active Problems Patient Care Coordination No te Formatting of this note migh t be different from the original. 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 03/31/2015 Osteoporosis Assessment & Plan (05/15/2023 1:47 PM EST): Exam within normal limits Dental caries 02/14/2023 Constipation 01/18/2023 Assessment & Plan (05/15/2023 3:27 PM EST): increase fluids and dietary fiber Colace sent, did not help Start Senna Assessment & Plan (01/18/2023 3:26 PM EDT): increase fluids and dietary fiber Colace sent Liver mass 07/13/2022 Assessment & Plan (07/13/2022 2:15 PM EDT): Patient with a potentially arterially enhancing lesion with rim enhancement seen on MRI done on 10/07/2021 with recommendation for repeat scan which has not happened Last note from Liver specialist 04/2022 mentions that Her alpha-fetoprotein is 8.1 is not significantly changed from before. He was concerned about the fact that she did not get a repeat scan as she was supposed to in early January. He wants to see her after the MRI. MRI was done 06/08/2022 and showed: Cirrhotic liver with hepatic steatosis. A 0.9 cm arterially hyperenhancing observation in the right hepatic lobe increased in size from prior however does not meet criteria for treshold growth. 3-6 month follow up MRI was recommended Panic attack 07/13/2022 Assessment & Plan (07/13/2022 2:26 PM EDT): Pt seen at [facility] 06/15/2022 after patient presented to the ER c/o of an episode of trembling Work up in the ER was unremarkable, pt eloped after 10 hours of waiting in the ER Pt is afraid this could happen again and wants her daughter. PT NEEDS SOMEONE TO STAY WITH HER AT NIGHT PREFERABLE HER DAUGHTER. Low back pain at multiple sites 07/13/2022 Assessment & Plan (04/08/2024 2:41 PM EST): Pt with chronic low back pain described as severe at times. Pt is unable to take Acetaminophen and is not a good candidate for NSAIDS Walks with a walker Patient uses Oxycodone PRN, discussed addictive potential with pt verbalized understanding Condition unchanged Pt would benefit from increase in [facility]MER hours Assessment & Plan (01/01/2024 8:05 PM EDT): -Good engagement and participation with Group Medical Visit model -Encouraged multifactorial approach to pain control including pharm and non- pharm modalities Assessment & Plan (10/02/2023 1:58 PM EDT): -Good engagement and participation with Group Medical Visit model, today was first visit. -Encouraged multifactorial approach to pain control including pharm and non- pharm modalities -UTOX as expected, pill count: forgot -Interested in trial of multiple topical analgesics after discussion with [facility] Pharmacist - meds sent to pharmacy below. Reviewed med use and SE Assessment & Plan (09/07/2022 2:15 PM EDT): Pt with chronic low back pain described as sever at times. Pt is unable to take Acetaminophen and is not a good candidate for NSAIDS Walks with a walker Patient uses Oxycodone PRN, discussed addictive potential with pt verbalized understanding Condition unchanged today Assessment & Plan (07/13/2022 2:39 PM EDT): Pt with chronic low back pain described as sever at times. 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 Ulloa ) and Marylu Johns (GI specialist) s/p Liver biopsy that showed severe steatosis as well as portal fibrosis Pt was started on ursodiol 300mg [address] Johns ordered an AFP 05/19/2020 that was elevated at 11.3 Repeat AFP down to 7.7 08/01/2022 US of her liver 09/11/2019 that aside from fatty infiltration was otherwise unremarkable Repeat LFTs 08/23/2020 showed a GOT 36 and GPT 42, MRI of liver 09/30/2019 showed: Hepatic cirrhosis and steatosis , arterial enhancing nodules, f/u contrast enhanced MRI was recommended in 6 months I received a note from Dr Johns where he mentions patient had repeat MRI and one of those nodules had increase slightly in size. Pt was referred at the [facility] Liver clinic. She was evaluated for Liver transplant due to potentialy HCC due to Cirrhosis associated with [place] Dr Johns recommended to DC Atorvastatin and Meloxicam, I contacted [facility] to male sure both meds are taken out of her med boxes. She had her colonoscopy 07/01/2021 Dr Johns recommended NO further colonoscopies Pt was last seen by Dr Ulloa Liver specialist at [facility] 08/01/2022 He does not think she needs to be in the liver transplant and they neftaly follow her with scans every 6 months and will treat accordingly if needed if she was to develop HCC Assessment & Plan (09/07/2022 2:15 PM EDT): Here for a f/u Under the care of [facility] ( Dr. Ulloa ) and Marylu Johns (GI specialist) s/p Liver biopsy that showed severe steatosis as well as portal fibrosis Pt was started on ursodiol 300mg [address] Johns ordered an AFP 05/19/2020 that was elevated at 11.3 Repeat AFP down to 7.7 08/01/2022 US of her liver 09/11/2019 that aside from fatty infiltration was otherwise unremarkable Repeat LFTs 08/23/2020 showed a GOT 36 and GPT 42, MRI of liver 09/30/2019 showed: Hepatic cirrhosis and steatosis , arterial enhancing nodules, f/u contrast enhanced MRI was recommended in 6 months I received a note from Dr Johns where he mentions patient had repeat MRI and one of those nodules had increase slightly in size. Pt was referred at the [facility] Liver clinic. She was evaluated for Liver transplant due to potentialy HCC due to Cirrhosis associated with [place] Dr Johns recommended to DC Atorvastatin and Meloxicam, I contacted [facility] to male sure both meds are taken out of her med boxes. She had her colonoscopy 07/01/2021 Dr Johns recommended NO further colonoscopies Pt was last seen by Dr Ulloa Liver specialist at [facility] 08/01/2022 He does not think she needs to be in the liver transplant and they neftaly follow her with scans every 6 months and will treat accordingly if needed if she was to develop HCC Assessment & Plan (07/13/2022 9:52 AM EDT): Here for a f/u Under the care of [facility] ( Dr. Ulloa ) and Marylu Johns (GI specialist) s/p Liver biopsy that showed severe steatosis as well as portal fibrosis Pt was started on ursodiol 300mg [address] Johns ordered an AFP 05/19/2020 that was elevated at 11.3 US of her liver 09/11/2019 that aside from fatty infiltration was otherwise unremarkable Repeat LFTs 08/23/2020 showed a GOT 36 and GPT 42, MRI of liver 09/30/2019 showed: Hepatic cirrhosis and steatosis , arterial enhancing nodules, f/u contrast enhanced MRI was recommended in 6 months I received a note from Dr Johns where he mentions patient had repeat MRI and one of those nodules had increase slightly in size. Pt was referred at the [facility] Liver clinic. She is currently undergoing evaluation for Liver transplant due to potentialy HCC due to Cirrhosis associated with [place] Dr Johns recommended to DC Atorvastatin and Meloxicam, I contacted [facility] to male sure both meds are taken out of her med boxes. She had her colonoscopy 07/01/2021 Dr Johns recommended NO further colonoscopies pt has an upcoming appointment at [facility] 05/02/2021 Assessment & Plan (04/20/2022 3:10 PM EST): Here for a f/u Under the care of [facility] ( Dr. Ulloa ) and Marylu Johns (GI specialist) s/p Liver biopsy that showed severe steatosis as well as portal fibrosis Pt was started on ursodiol 300mg [address] Johns ordered an AFP 05/19/2020 that was elevated at 11.3 US of her liver 09/11/2019 that aside from fatty infiltration was otherwise unremarkable Repeat LFTs 08/23/2020 showed a GOT 36 and GPT 42, MRI of liver 09/30/2019 showed: Hepatic cirrhosis and steatosis , arterial enhancing nodules, f/u contrast enhanced MRI was recommended in 6 months I received a note from Dr Johns where he mentions patient had repeat MRI ( records requested ) and one of those nodules had increase slightly in size. Pt was referred at the [facility] Liver clinic. She was last seen last 12/03/2020 and is currently undergoing evaluation for Liver transplant due to potentialy HCC due to Cirrhosis associated with [place] Dr Johns recommended to DC Atorvastatin and Meloxicam, I contacted [facility] to male sure both meds are taken out of her med boxes. She had her colonoscopy 07/01/2021 Dr Johns recommended NO further colonoscopies pt has an upcoming appointment at [facility] 05/02/2021 Diverticulosis of colon 04/20/2022 Elevated alpha fetoprotein 04/20/2022 Stress incontinence of urine 04/20/2022 Assessment & Plan (07/13/2022 2:27 PM EDT): Pt with c/o this x 1 year Will refer to Urology, pt needs diapers and a bedside toilet Assessment & Plan (04/20/2022 3:17 PM EST): Pt with c/o this x 1 year Will refer to Urology, pt needs diapers and a bedside toilet Arthritis 07/23/2020 Assessment & Plan (04/20/2022 3:22 PM EST): Pt with difficulty walking at high risk of falls, would benefit from a walker with wheels an a seat 1. Does the patient have a mobility limitation that significantly impairs their ability to participate in any or all mobility related activities of daily living (MRADLs) such as toileting, feeding, dressing, grooming and bathing in customary locations in the home? Yes 2. Can the patient? s mobility limitation be sufficiently resolved with the use of a cane or crutch? No 3. Will the functional mobility deficit be sufficiently resolved with the use of a walker? Yes 4. Is the patient able to safely use the walker? Yes 5. If a walker with wheels is needed, does the patient have upper body weakness which prevents them from picking up the walker? 6. If a walker with wheels is needed, does the patient have limited use of one hand, neurological disorders or severe obesity? Essential hypertension 04/06/2015 Overview (08/21/2022): BP historically under well control Current therapy: - Hydrochlorothiazide 25mg daily - Valsartan 160 mg daily - Metoprolol tartrate 25mg BID Assessment & Plan (04/08/2024 2:27 PM EST): Patient here for a f/u BP controlled She is on a regimen of: Metoprolol 25 mg po BID, Valsartan 160 mg po daily and hydrochlorothiazide 25 mg po daily Most recent electrolytes Bun and Cr Lab Results Component Value Date NA 141 05/16/2023 NA 142 01/19/2023 K 4.1 05/16/2023 K 3.5 01/19/2023 CL 104 05/16/2023 CL 105 01/19/2023 BUN 17 (H) 05/16/2023 BUN 11 01/19/2023 CREATININE 0.89 05/16/2023 CREATININE 0.84 01/19/2023 were wnl Plan: no changes to her regimen, repeat BMP f/u 4 months patient advised to adhere to a low sodium diet, encouraged about medication compliance, counseled about weight loss. Assessment & Plan (05/15/2023 1:40 PM EST): Patient here for a f/u BP controlled She is on a regimen of: Metoprolol 25 mg po BID, Valsartan 160 mg po daily and hydrochlorothiazide 25 mg po daily Most recent electrolytes Bun and Cr 01/19/2023 were wnl Plan: no changes to her regimen f/u 4 months patient advised to adhere to a low sodium diet, encouraged about medication compliance, counseled about weight loss. Assessment & Plan (01/18/2023 3:16 PM EDT): Patient here for a f/u BP controlled She is on a regimen of: Metoprolol 25 mg po BID, Valsartan 160 mg po daily and hydrochlorothiazide 25 mg po daily Most recent electrolytes Bun and Cr 08/01/2022 were wnl Plan: no changes to her regimen f/u 4 months patient advised to adhere to a low sodium diet, encouraged about medication compliance, counseled about weight loss. Assessment & Plan (09/07/2022 2:10 PM EDT): Patient here for a f/u BP controlled She is on a regimen of: Metoprolol 25 mg po BID, and Valsartan 160/Hctz 25 mg po daily Most recent electrolytes Bun and Cr 08/01/2022 were wnl Plan: no changes to her regimen f/u 4 months patient advised to adhere to a low sodium diet, encouraged about medication compliance, counseled about weight loss. Assessment & Plan (08/21/2022 3:08 PM EDT): - BP is at goal of less than 140/90 per JNC8 guidelines - Combined Hydrochlorothiazide and Valsartan into single pill to reduce pill burden Assessment & Plan (07/13/2022 9:51 AM EDT): Patient here for a f/u BP controlled She is on a regimen of: Metoprolol 25 mg po BID, and Valsartan 160/Hctz 25 mg po daily Most recent electrolytes Bun and Cr 12/28/2021 were wnl Plan: no changes to her regimen f/u 4 months patient advised to adhere to a low sodium diet, encouraged about medication compliance, counseled about weight loss. Assessment & Plan (04/20/2022 3:04 PM EST): pt here for a f/u BP controlled She is on a regimen of: Metoprolol 25 mg po BID, and Valsartan 160/Hctz 25 mg po daily Most recent electrolytes Bun and Cr 12/28/2021 were wnl Plan: no changes to her regimen f/u 4 months patient advised to adhere to a low sodium diet, encouraged about medication compliance, counseled about weight loss. Diabetes mellitus, type II 03/22/2012 Assessment & Plan (04/08/2024 2:37 PM EST): Pt here for a f/u Pt reports her DM is controlled on a regimen of: diet alone Hgb A1c on 04/08/2024 was 5.7 from 5.6 Eye exam done 05/14/2018 Microalbumin checked on: 11/03/2020 was: 0.9 Pt on an ARB. Foot check risk of zero Pt reports compliance with Asa 81 mg po daily Pt advised to: adhere to diabetic diet check your blood sugars regularly check your feet on a daily basis. Assessment & Plan (05/15/2023 1:41 PM EST): Pt here for a f/u Pt reports her DM is controlled on a regimen of: diet alone Hgb A1c on 05/15/2023 was 5.6 Eye exam done 05/14/2018 Microalbumin checked on: 11/03/2020 was: 0.9 Pt on an ARB. Foot check risk of zero Pt reports compliance with Asa 81 mg po daily Pt advised to: adhere to diabetic diet check your blood sugars regularly check your feet on a daily basis. Assessment & Plan (01/18/2023 3:21 PM EDT): Pt here for a f/u Pt reports her DM is controlled Hgb A1c on 01/18/2023 was 5.6 Eye exam done 05/14/2018 Microalbumin checked on: 11/03/2020 was: 0.9 Pt on an ARB. Foot check risk of zero Pt reports compliance with Asa 81 mg po daily Pt advised to: adhere to diabetic diet check your blood sugars regularly check your feet on a daily basis. Assessment & Plan (09/07/2022 2:09 PM EDT): Pt here for a f/u Pt reports her DM is controlled on a regimen of: diet alone Hgb A1c on 07/13/2022 was 5.6 Eye exam done 05/14/2018 Microalbumin checked on: 11/03/2020 was: 0.9 Pt on an ARB. Foot check risk of zero Pt reports compliance with Asa 81 mg po daily Pt advised to: adhere to diabetic diet check your blood sugars regularly check your feet on a daily basis. Assessment & Plan (07/13/2022 9:50 AM EDT): Pt here for a f/u Pt reports her DM is controlled on a regimen of: diet alone Hgb A1c on 07/13/2022 was Eye exam done 05/14/2018 Microalbumin checked on: 11/03/2020 was: 0.9 Pt on an ARB. Foot check risk of zero Pt reports compliance with Asa 81 mg po daily Pt advised to: adhere to diabetic diet check your blood sugars regularly check your feet on a daily basis. Assessment & Plan (04/20/2022 3:03 PM EST): Pt here for a f/u Pt reports her DM is controlled on a regimen of: diet alone Hgb A1c on 04/20/2022 was 5.6 Eye exam done 05/14/2018 Microalbumin checked on: 11/03/2020 was: 0.9 Pt on an ARB. Foot check risk of zero Pt reports compliance with Asa 81 mg po daily Pt advised to: adhere to diabetic diet check your blood sugars regularly check your feet on a daily basis. Osteoporosis 03/22/2012 Migraine 03/22/2012 Hyperlipidemia 03/22/2012 Assessment & Plan (04/08/2024 2:29 PM EST): Pt here for a f/u Patient with elevated lipids. Most recent lipid profile from: 01/19/2023 shows a total cholesterol of: Component Ref Range & Units 3 mo ago (01/19/23) 1 yr ago (05/05/22) 1 yr ago (12/28/21) 2 yr ago (11/03/20) 3 yr ago (10/07/19) Triglycerides <150 mg/dL 110 135 133 134 183 High Comment: Desirable Triglyceride: less than 150 mg/dLBorderline High Triglyceride 150-199 mg/dLHigh Triglyceride: 200-499 mg/dLVery High Triglyceride: greater than or equal to 5OO mg/dL Cholesterol <200 mg/dL 237 High Comment: Desirable Cholesterol: less than 200 mg/dLBorderline High Cholesterol: 200-239 mg/dLHigh Cholesterol: greater than 239 mg/dL LDL Cholesterol Calculated <100 mg/dL 172 High Comment: Desirable LDL: less than 100 mg/dLNear Optimal/Above Optimal LDL: 110- 129 mg/dLBorderline High LDL: 130-159 mg/dLHigh LDL: 160-189 mg/dLVery High LDL: greater than or equal to 190 mg/dL HDL Cholesterol >40 mg/dL 43 53 R 63 R 54 R 42 Low R Currently off statins Previous visit she told me her manager estate asked her to stop one medication, I suspect this is the one since her LFTs started to go up. Pt [facility] (Dr Pena), last seen November 02 2010.Pt had a liver biopsy that showed severe steatosis and fibrosis. In the past increasing the dose of the Lipitor had caused worsening on her LFTs Assessment & Plan (05/15/2023 1:42 PM EST): Pt here for a f/u Patient with elevated lipids. Most recent lipid profile from: 01/19/2023 shows a total cholesterol of: Component Ref Range & Units 3 mo ago (01/19/23) 1 yr ago (05/05/22) 1 yr ago (12/28/21) 2 yr ago (11/03/20) 3 yr ago (10/07/19) Triglycerides <150 mg/dL 110 135 133 134 183??High?? Comment: Desirable Triglyceride: ? less than 150 mg/dLBorderline High Triglyceride ??150-199 mg/dLHigh Triglyceride: ?200-499 mg/dLVery High Triglyceride: ? greater than or equal to ?5OO mg/dL Cholesterol <200 mg/dL 237??High?? Comment: Desirable Cholesterol: ?less than 200 mg/dLBorderline High Cholesterol: ??200-239 mg/dLHigh Cholesterol: ? greater than 239 mg/dL LDL Cholesterol Calculated <100 mg/dL 172??High?? Comment: Desirable LDL: ? less than 100 mg/dLNear Optimal/Above Optimal LDL: ??110-129 mg/dLBorderline High LDL: ? 130-159 mg/dLHigh LDL: ?160-189 mg/dLVery High LDL: ? greater than or equal to ? 190 mg/dL HDL Cholesterol >40 mg/dL 43 53 R 63 R 54 R 42??Low?? R Currently off statins Previous visit she told me her manager estate asked her to stop one medication, I suspect this is the one since her LFTs started to go up. Pt used to [facility] (Dr Pena), last seen November 02 2010.Pt had a liver biopsy that showed severe steatosis and fibrosis. In the past increasing the dose of the Lipitor had caused worsening on her LFTs Assessment & Plan (01/18/2023 3:23 PM EDT): Pt here for a f/u Patient with elevated lipids. Most recent lipid profile from: 12/28/2021 shows a total cholesterol of: 281 triglycerides of: 133 HDL of: 63 and LDL 191 Currently off statins Previous visit she told me her manager estate asked her to stop one medication, I suspect this is the one since her LFTs started to go up. Pt used to follow [facility] (Dr Pena), last seen November 02 2010.Pt had a liver biopsy that showed severe steatosis and fibrosis. In the past increasing the dose of the Lipitor had caused worsening on her LFTs Will repeat Lipid profile Assessment & Plan (04/20/2022 3:12 PM EST): Pt here for a f/u Patient with elevated lipids. Most recent lipid profile from: 12/28/2021 shows a total cholesterol of: 281 triglycerides of: 133 HDL of: 63 and LDL 191 Currently off statins Previous visit she told me her manager estate asked her to stop one medication, I suspect this is the one since her LFTs started to go up. [facility] (Dr Pena), last seen November 02 2010.Pt had a liver biopsy that showed severe steatosis and fibrosis. In the past increasing the dose of the Lipitor had caused worsening on her LFTs Depressive disorder 03/22/2012 Carpal tunnel syndrome 03/22/2012 Encounters Date Type Department Care Team Description 05/14/2024 Refill [facility] MED & PEDS [address] [place] [address] You Bedolla MD Low back pain at multiple sites 05/05/2024 Refill [facility] MEDICINE [address] [place] [address] You Bedolla MD Osteoporosis, unspecified osteoporosis type, unspecified pathological fracture presence 04/29/2024 Telephone [facility] MEDICINE [address] [place] [address] You Bedolal MD DME [facility] 04/21/2024 Telephone [facility] MEDICINE [address] [place] [address] Nellie Ortez MA DME from [facility] 04/17/2024 Telephone [facility] [place] [address] You Bedolla MD Durable Medical Equipment 04/15/2024 Telephone [facility] [place] [address] Nellie Ortez MA DME from [facility] 04/08/2024 2:15 PM EST Office Visit [facility] [place] [address] You Bedolla MD Other emphysema (CMS/HCC) (Primary Dx); Type 2 diabetes mellitus without complication, without long-term current use of insulin (CMS/HCC); Essential hypertension; Mixed hyperlipidemia; Preventative health care; Breast cancer screening, high risk patient; Low back pain at multiple sites; Tinea cruris; Breast cancer screening by mammogram 04/08/2024 Travel 04/02/2024 Telephone [facility] [place] [address] You Bedolla MD Chart Prep 03/17/2024 Telephone [facility] [place] [address] You Bedolla MD [facility] (I informed the patient that [facility] were ordered, and she may come to the [facility] lab at her convenience, to have them done. She stated that she can't have them done at this time, because she is sick with a fever, and chest congestion. I asked if she would like for me to send a message to the nurse, for a telephone triage, but she declined. She stated that she has an appointment with her PCP in March, and if her symptoms get worse before her appointment, she will call the [facility].) 2024 Telephone [facility] [place] [address] Jamia Bliss RN Paperwork/Forms 03/10/2024 Telephone [facility] [place] [address] You Bedolla MD Durable Medical Equipment 03/07/2024 Refill [facility] MED & PEDS [address] [place] [address] You Bedolla MD Low back pain at multiple sites 03/06/2024 Telephone [facility]INE [address] [place] [address] You Bedolla MD April Recall 02/14/2024 Telephone [facility] [address] [place], [place] [phone] You Bedolla MD Durable Medical Equipment from Last 3 Months Immunizations Name Administration Dates Next Due Hep B, adult 09/30/2013,08/29/2013 HepB-CpG 12/03/2020 Influenza High-dose Quadriva lent Preservative Free 02/15/2022,02/01/2021 Influenza Injectable Quadriv alant Preservative Free IIV4 MDCK 02/26/2020 Influenza injectable quadriv alent IIV4 with preservative 01/24/2018,01/11/2017,02/08/2016 Influenza injectable quadriv alent preservative free 01/18/2023,02/07/2019,01/26/2015 Influenza, High Dose Seasona l, Preservative Free 02/11/2024 Influenza, IIV3, injectable 12/22/2020,0 12/23/2019,12/22/2018,01/27,01/26/2011 Influenza, Split (incl. alyssia fied surface antigen) 12/22/2011 Pfizer Covid-19 Vaccine 12+ Bivalent 02/15/2022 Pfizer Covid-19 Vaccine 12+ maria eugenia-sucrose ([place] Cap) 09/12/2021 Pneumococcal Conjugate PCV 13 12/03/2020, 015 Pneumococcal Polysaccharide PPSV23 02/08/2017, RSV Bivalent 05/16/2023 TD (adult), 2 Lf tetanus tox oid, preservative free, adsorbed 10/12/2004 Tdap 12/03/2020,08/29/2013 Zoster, Recombinant 10/30/2022,08/21/2022 Zoster, live 09/16/2014 Social History Tobacco Use Types Packs/Day Years Used Date Smoking Tobacco: Former Cigarettes Q uit: 2011 Passive Smoke Exposure: Past Smokeless Tobacco: Never Tobacco Cessation:Counseling Given: Not Answered Alcohol Use Standard Drinks/Week Comments Never 0 [...] Orientation Straight 02/20/2022 10 :15 AM EDT Last Filed Vital Signs Vital Sign Reading Time Taken Comments Blood Pressure 140/84 04/08/2024 2:32 PM EST Pulse 62 04/08/2024 2:15 PM EST Temperature 35.6 ??C (96 ??F) 04/08/2024 2:15 PM EST Respiratory Rate 20 04/08/2024 2:15 PM EST Oxygen Saturation 98% 04/08/2024 2:15 PM EST Inhaled Oxygen Concentration - - Weight 73.3 kg (161 lb 9.6 oz) 04/08/2024 2:15 P M EST Height 149.9 cm (4' 11 ) 04/08/2024 2:15 PM EST Body Mass Index 32.64 04/08/2024 2:15 PM EST Plan of Treatment Upcoming Encounters Date Type Department Care Team (Late st Contact Info) Description 05/26/2024 10:00 AM EST Office Visit [facility] ADULT DENTAL [address] [place] [address] Mau Macdonald DDS [address] [place] [address] 07/08/2024 2:00 PM EDT Office Visit [facility] MEDICINE [address] [place], [place] [phone] You Bedolla MD [address] [place], [place] [phone] Health Maintenance Due Date Last Done Comments Dental X-Ray: Bitewings 1945 Diabetes: Foot Exam 1957 Eye Exam 1957 Hepatitis A Vaccines (1 of 2 - Risk 2-dose series) 1966 Diabetes: Urine Protein Screening 12/28/2022 12/28/2021, 11/03/2020, 10/07/2019 Dental Oral Exam 08/17/2023 02/14/2023 Depression Monitoring (PHQ-9) 11/13/2023 05/15/2023, 05/15/2023 COVID-19 Vaccine ( season) 2023 02/15/2022, 09/12/2021, 03/08/2021, Additional history exists SDOH Screening 05/04/2024 05/04/2023 Depression Screening 05/15/2024 05/15/2023, 05/15/19 24 Lipid Panel 05/16/2024 05/16/2023, 12/23, 05/05/2022, Additional history exists Dental Prophylaxis 05/25/2024 11/22/2023, 1 , 01/26/2022 Diabetes: Hemoglobin A1C 10/07/2024 024, 05/15/2023, 01/18/2023, Additional history exists Alcohol/Substance Use Screening 04/08/2025 04/08/2024 Tobacco Screening 04/08/2025 04/08/2024 Dental X-Ray: Full Mouth 01/27/2026 01/26/2023 DTaP/Tdap/Td Vaccines (3 - Td or Tdap) 12/03/2030 12/03/2020, 08/29/2013, 10/12/2004 Hepatitis B Vaccines Completed 12/03/2020, 09/30/2013, 08/29/2013 Pneumococcal Vaccine: 65+ Years Completed 12/03/2020, 02/08/2017, 12/24/2014, Additional history exists Hepatitis C Screening Completed 05/05/2022 Zoster Vaccines Completed 10/30/2022, 04/2022, 09/16/2014 RSV Patients and Patients Aged 60 years or older Completed 05/16/2023 Influenza Vaccine Completed 02/11/2024, , 02/15/2022, Additional history exists HIB Vaccines Aged Out No longer eligi ble based on patient's age to complete this topic HPV Vaccines Aged Out No longer eligi ble based on patient's age to complete this topic IPV Vaccines Aged Out No longer eligi ble based on patient's age to complete this topic Meningococcal Vaccine Aged Out No you rosario eligible based on patient's age to complete this topic RSV under 20 months Aged Out No longe r eligible based on patient's age to complete this topic Rotavirus Vaccines Aged Out No longer eligible based on patient's age to complete this topic Goals Goal Patient Goal Type Associated Problems Recent Progress Patient-Stated? Author Blood Pressure < 140/90 Blood Pressure Essential hypertension 140/84(2023 2:32 PM EST) No Charles Myrick, Demetrio Procedures Procedure Name Priority Date/Time Associated Diagnosis Comments POCT GLYCATED HEMOGLOBIN, TOTAL Routine 04/08/2024 2:33 PM EST Type 2 diabetes mellitus without complication, without long-term current use of insulin ([facility]) POCT GLUCOSE Routine 04/08/2024 2:21 PM EST Type 2 diabetes mellitus without complication, without long-term current use of insulin ([facility]) PROPHYLAXIS - ADULT Routine 11/22/2023 1 :00 PM EDT Dental plaque LIPID PANEL WITH REFLEX TO DIRECT LDL Routine 05/16/2023 10:26 AM EST Type 2 diabetes mellitus without complication, without long-term current use of insulin (CMS/HCC) PERIODIC ORAL EVALUATION - ESTABLISHED PATIENT Routine 02/14/2023 1:00 PM EDT HEPATITIS C AB W/REFL TO HCV RNA, QN, PCR Routine 05/05/2022 9:23 AM EST Non-alcoholic cirrhosis (CMS/HCC) ALBUMIN, RANDOM URINE W/CREATININE Routine 12/28/2021 8:44 AM EDT from Last 3 Months or Most Recently Relevant to Health Maintenance Results * POCT HGB A1C (04/08/2024 2:33 PM EST) Hemoglobin A1C 5.7 4.0 - 6.0 % QC Media Lot # [id number] Lot# Expiration Date ,634,036 Blood 04/08/2024 2:33 PM EST You Rader MD POINT OF CARE TEST EN TER/EDIT ORDERABLES Final Result * POCT Glucose (04/08/2024 2:21 PM EST) Glucose Blood, POC 117 60 - 200 mg/dL QC Media Lot # [id number] Lot# Expiration Date [id number] Blood Capillary blood specimen / Unknown 04/08/2024 2:21 PM EST You Rader MD POINT OF CARE TEST EN TER/EDIT ORDERABLES Final Result * (ABNORMAL) Lipid Panel with Reflex to Direct LDL (05/16/2023 10:26 AM EST) Triglycerides 110 <150 mg/dL [facility] Comment:Desirable Triglyceri de: less than 150 mg/dLBorderline High Triglyceride 150-199 mg/dLHigh Triglyceride: 200-499 mg/dLVery High Triglyceride: greater than or equal to 5OO mg/dL Cholesterol 267(H) <200 mg/dL [facility] Comment:Desirable Cholestero l: less than 200 mg/dLBorderline High Cholesterol: 200-239 mg/dLHigh Cholesterol: greater than 239 mg/dL LDL Cholesterol Calculated 190(H) <100 mg/dL [facility] Comment:Desirable LDL: less than 100 mg/dLNear Optimal/Above Optimal LDL: 110- 129 mg/dLBorderline High LDL: 130-159 mg/dLHigh LDL: 160-189 mg/dLVery High LDL: greater than or equal to 190 mg/dL HDL Cholesterol 55 >40 mg/dL [facility] Comment:Desirable HDL: great er than 40 mg/dL Note: This HDL assay may give artificially low results in patients with liver disease. Blood 05/16/2023 10:2 6 AM EST 05/16/2023 11:16 AM EST You Rader MD LAB BLOOD ORDERABLES Final Result [facility] [address] [place] [address] [phone] * Hepatitis C Antibody with Reflex to HCV, RNA, Quantitative, Real-Time PCR (05/05/2022 9:23 AM EST) Hepatitis C Antibody NON-REACT LOUISE NON-REACT LOUISE [facility] [place] [employer] Index <0.02 <1.00 [facility] [place] [facility] [employer] Comment: HCV antibody was non-reactive. There is no laboratory evidence of HCV infection. In most cases, no further action is required. However, if recent HCV exposure is suspected, a test for HCV RNA (test code 91163) is suggested. For additional information please refer to http://education.Qalendra/faq/XHU20c8 (This link is being provided for informational/ educational purposes only.) Blood Venous blood specimen / Unknown 05/05/2022 9:23 AM EST 05/05/2022 9:24 AM EST Narrative [facility] - 05/05/2022 10:22 PM EST FASTING:YES FASTING: YES us You Rader MD LAB BLOOD ORDERABLES Final Result [facility] [address] [facility], 3[address], [place] [address] [facility] [address] , ([address]) [place] [address] * ALBUMIN, RANDOM URINE W/CREATININE (12/28/2021 8:44 AM EDT) Microalbumin Urine 2.5 See Note: mg/dL [facility] Comment: Reference Range: ?? Reference Range Not established Microalb/Creat Ratio 23 <30 mcg/mg creat [facility] Comment: ?? The ADA defines abnormalities in albumin excretion as follows: ?? Albuminuria Category ?Result (mcg/mg creatinine) ?? Normal to Mildly increased ?? <30 Moderately increased ? 30-299 ?? Severely increased ? > OR = 300 ?? The ADA recommends that at least two of three specimens collected within a 3-6 month period be abnormal before considering a patient to be within a diagnostic category. Creatinine, Urine 108 20 - 275 mg/dL [facility] 12/28/2021 8:44 AM EDT us You Rader MD LAB URINE ORDERABLES Final Result [facility] [address] from Last 3 Months or Most Recently Relevant to Health Maintenance Insurance [facility] Care Teams Pharmacy Billing Adjudicator Relationship Specialty Start Date End Date You Bedolla MD [address] [place] [address] PCP - General Internal Medicine 05/27/14
--- OUTSIDE RECORDS SUMMARY | 2024-05-16 15:16 | XMS_ITS | Encounter Summary ---
Author Organization [facility] Address [address] [place] [address] Care Team Providers Care Child Attendant Name Role Phone You Martinez Primary Care Provider + Encounter Details Date Type Department Care Team (Late st Contact Info) Description 09/08/2021 Orders Only [facility] XRay [address] [place] [address] Curtis Ray [address] [place] [address] Social History Tobacco Use Types Packs/Day Years Used Date Smoking Tobacco: Former Cigarettes Q uit: 04/23/2006 Smokeless Tobacco: Never Alcohol Use Standard Drinks/Week Comments Not Currently 0 (1 standard drink = 0.6 oz pur e alcohol) Comments Unknown Sex and Gender Information Value Date Recorded Sex Assigned at Not on file Legal Sex Female 9:33 AM EDT Gender Identity Not on file Sexual Orientation Not on file documented as of this encounter Plan of Treatment Not on file documented as of this encounter Visit Diagnoses Not on filedocumented in this encounter Care Teams Child Attendant Relationship Specialty Start Date End Date You Martinez [address] [place] [address] PCP - General Internal Medicine 10/06/19 documented as of this encounter
--- OUTSIDE RECORDS SUMMARY | 2024-05-16 15:16 | XMS_ITS | Encounter Summary ---
Author Organization [facility] Address [address] [place] [address] Care Team Providers Care Category Analyst Name Role Phone You Martinez Primary Care Provider + Encounter Details Date Type Department Care Team (Late st Contact Info) Description 07/23/2020 Orders Only [facility] CT Scan [address] [place], [place] [phone] Dylan White MD [address] [place], [place] [phone] Social History Tobacco Use Types Packs/Day Years Used Date Smoking Tobacco: Former Smokeless Tobacco: Never Comments Unknown Sex and Gender Information Value Date Recorded Sex Assigned at Not on file Legal Sex Female 9:33 AM EDT Gender Identity Not on file Sexual Orientation Not on file documented as of this encounter Plan of Treatment Not on file documented as of this encounter Visit Diagnoses Not on filedocumented in this encounter Care Teams Category Analyst Relationship Specialty Start Date End Date You Martinez [address] [place] [phone] PCP - General Internal Medicine 10/06/19 documented as of this encounter
--- OUTSIDE RECORDS SUMMARY | 2024-05-16 15:16 | XMS_ITS | Encounter Summary ---
Author Organization [facility] Address [address] [place] [address] Care Team Providers Care Net Programmer Analyst Name Role Phone You Martinez Primary Care Provider + Encounter Details Date Type Department Care Team (Late st Contact Info) Description 10/06/2020 Orders Only [facility] Interventional Radiology [address] [place] [address] Massimo Salomon MD [address] [place], [place] [phone] Social History Tobacco Use Types Packs/Day Years [...] on filedocumented in this encounter Care Teams Net Programmer Analyst Relationship Specialty Start Date End Date You Martinez [address] [place] [phone] PCP - General Internal Medicine 10/06/19 documented as of this encounter
--- OUTSIDE RECORDS SUMMARY | 2024-05-16 15:16 | XMS_ITS | Encounter Summary ---
Author Organization [employer] Address [address] [facility] 7t [place] [address] Care Team Providers Care Fiscal Officer Name Role Phone You Bedolla MD Primary Care Provide r Reason for Visit * Reason Onset Date Comments Med Refill 05/14/2024 Encounter Details Date Type Department Care Team ([facility] st Contact Info) Description 05/14/2024 Refill [facility] MED & PEDS [address] [place] [address] You Bedolla MD [address] [place] [address] Low back pain at multiple sites Social History Tobacco Use Types Packs/Day Years [...] as of this encounter Miscellaneous Notes * Addendum Note - Pili Khan RN - 05/14/2024 1:09 PM ESTAddended by: PILI KHAN on: 05/14/2024 01:09 PM Modules accepted: Orders * Telephone Encounter - Pili hKan RN - 05/14/2024 1:07 PM EST PROCESS CONTROL TECHNICIAN checked. Pt last picked up 20 day supply of oxycodone 04/15/24. Expected fill date of 05/05/24. Last saw PCP 04/08/24. Has missed several appts with [facility] pain management providers. Queued refill. * Telephone Encounter - Le Kitchen LPN - 05/14/2024 11:05 AM EST Received request on oxyCODONE (Roxicodone) 5 MG immediate release tablet documented in this encounter Plan of Treatment Upcoming Encounters Date Type Department Care Team (Late st Contact Info) Description 05/26/2024 10:00 AM EST Office Visit [facility] ADULT DENTAL [address] [place] [address] Mau Macdonald DDS [address] [place] [address] 07/08/2024 2:00 PM EDT Office Visit [facility] MEDICINE [address] [place], [place] [phone] You Bedolla MD [address] [place], [place] [phone] documented as of this encounter Goals Goal Patient Goal Type Associated Problems Recent Progress Patient-Stated? Author Blood Pressure < 140/90 Blood Pressure Essential hypertension 140/84(2023 2:32 PM EST) No Charles Myrick, PercyD documented as of this encounter Visit Diagnoses Diagnosis Low back pain at multiple sites documented in this encounter Additional Health Concerns Assessment Noted Time PHQ-9 Depression Total Score: 13 024 1:37 PM EST documented as of this encounter Care Teams Fiscal Officer Relationship Specialty Start Date End Date You Bedolla MD [address] [place] [address] [phone] PCP - General Internal Medicine 05/27/14 documented as of this encounter
--- OUTSIDE RECORDS SUMMARY | 2024-05-16 15:16 | XMS_ITS | Encounter Summary ---
Author Organization [employer] Address [address] [facility] 7t [place] [address] Care Team Providers Care Admissions Counselor Name Role Phone You Bedolla MD Primary Care Provide r Encounter Details Date Type Department Care Team ( Contact Info) Description 08/30/2022 Telephone [facility] MEDICINE [address] [place], [place] [phone] Carrie Pickett RN Social History Tobacco Use Types Packs/Day Years [...] suspected to have Coronavirus/COVID-19? No / Unsure 08/21/2022 3:27 PM EDT documented as of this encounter Plan of Treatment Upcoming Encounters Date Type Department Care Team (Late Contact Info) Description 05/26/2024 10:00 AM EST Office Visit [facility] ADULT DENTAL [address] [place] [address] Mau Macdonald DDS [address] [place], [place] [phone] 07/08/2024 2:00 PM EDT Office Visit [facility] MEDICINE [address] [place] [address] You Bedolla MD [address] [place] [address] documented as of this encounter Goals Goal Patient Goal Type Associated Problems Recent Progress Patient-Stated? Author Blood Pressure < 140/90 Blood Pressure Essential hypertension 140/84(2023 2:32 PM EST) Charles Underwood, PharmD documented as of this encounter Visit Diagnoses Not on filedocumented in this encounter Care Teams Admissions Counselor Relationship Specialty Start Date End Date You Bedolla MD [address] [place] [address] PCP - General Internal Medicine 05/27/14 documented as of this encounter
--- OUTSIDE RECORDS SUMMARY | 2024-05-16 15:16 | XMS_ITS | Encounter Summary ---
Author Organization [employer] [facility] Address [address] [facility] 7t [place] [address] Care Team Providers Care Automatic Nailing Machine Feeder Name Role Phone You Bedolla MD Primary Care Provide r Reason for Visit * Reason Comments Med Refill Encounter Details Date Type Department Care Team ([facility] Contact Info) Description 05/05/2024 Refill [facility] MEDICINE [address] [place], [place] [phone] You Bedolla MD [address] [place], [place] [phone] Osteoporosis, unspecified osteoporosis type, unspecified pathological fracture presence Social History Tobacco Use Types Packs/Day Years [...] Description 05/26/2024 10:00 AM EST Office Visit [facility] ADULT DENTAL [address] [place] [address] Mau Macdonald DDS [address] [place] [address] 07/08/2024 2:00 PM EDT Office Visit [facility] MEDICINE [address] [place] [address] You Bedolla MD [address] [place] [phone] documented as of this encounter Goals Goal Patient Goal Type Associated Problems Recent Progress Patient-Stated? Author Blood Pressure < 140/90 Blood Pressure Essential hypertension 140/84(2023 2:32 PM EST) No Charles Myrick, PercyD documented as of this encounter Visit Diagnoses Diagnosis Osteoporosis, unspecified osteoporosis type, unspecified pathological fracture presence documented in this encounter Additional Health Concerns Assessment Noted Time PHQ-9 Depression Total Score: 13 024 1:37 PM EST documented as of this encounter Care Teams Automatic Nailing Machine Feeder Relationship Specialty Start Date End Date You Bedolla MD [address] [place] [phone] PCP - General Internal Medicine 05/27/14 documented as of this encounter
--- OUTSIDE RECORDS SUMMARY | 2024-05-16 15:16 | XMS_ITS | Encounter Summary ---
Author Organization [employer] Address [address] [facility] [address]t [place] [address] Care Team Providers Care Cyber Software Engineer Name Role Phone You Bedolla MD Primary Care Provide r Encounter Details Date Type Department Care Team (Late st Contact Info) Description 06/23/2022 Abstract [facility] ADULT DENTAL [address] [place] [address] Madelyn Chaparro [address] [place] [address] Social History Tobacco Use Types Packs/Day Years Used Date Smoking Tobacco: Former Cigarettes Passive Smoke Exposure: Never Smokeless Tobacco: Never [...] suspected to have Coronavirus/COVID-19? No / Unsure 06/22/2022 2:17 PM EST documented as of this encounter Plan of Treatment Upcoming Encounters Date Type Department Care Team (Late st Contact Info) Description 05/26/2024 10:00 AM EST Office Visit [facility] ADULT DENTAL [address] [place] [address] Mau Macdonald DDS [address] [place] [address] 07/08/2024 2:00 PM EDT Office Visit [facility] MEDICINE [address] [place], [place] [phone] You Bedolla MD [address] [place], [place] [phone] documented as of this encounter Visit Diagnoses Not on filedocumented in this encounter Care Teams Cyber Software Engineer Relationship Specialty Start Date End Date You Bedolla MD [address] [place] [address] [phone] PCP - General Internal Medicine 05/27/14 documented as of this encounter
--- OUTSIDE RECORDS SUMMARY | 2024-05-16 15:16 | XMS_ITS | Encounter Summary ---
Author Organization [employer] Address [address] [facility] 7t [place] [address] Care Team Providers Care General Scrap Worker Name Role Phone You Bedolla MD Primary Care Provide r Reason for Visit * Reason Onset Date Comments DME from [facility] 04/21/2024 Encounter Details Date Type Department Care Team ([facility] st Contact Info) Description 04/21/2024 Telephone [facility] MEDICINE [address] [place] [address] Nellie Ortez MA DME from [facility] Social History Tobacco Use Types Packs/Day Years [...] encounter Miscellaneous Notes * Telephone Encounter - Nellie Ortez MA - 04/21/2024 10:10 AM EST Confirmation of order and DME for Brief and underwear from Alex placed on PCP desk for signature. documented in this encounter Plan of Treatment Upcoming Encounters Date Type Department Care Team (Late st Contact Info) Description 05/26/2024 10:00 AM EST Office Visit [facility] ADULT DENTAL [address] [place] [address] Mau Macdonald DDS [address] [place] [address] 07/08/2024 2:00 PM EDT Office Visit [facility] MEDICINE [address] [place] [address] You Bedolla MD [address] [place] [address] documented as of this encounter Goals Goal [...] documented as of this encounter Care Teams General Scrap Worker Relationship Specialty Start Date End Date You Bedolla MD [address] [place] [address] PCP - General Internal Medicine 05/27/14 documented as of this encounter
--- OUTSIDE RECORDS SUMMARY | 2024-05-16 15:16 | XMS_ITS | Encounter Summary ---
Author Organization [employer] Address [address] [facility] 7t [place] [address] Care Team Providers Care Internal Control Consultant Name Role Phone You Bedolla MD Primary Care Provide r Encounter Details Date Type Department Care Team (Late st Contact Info) Description 04/04/2022 Orders Only [facility] CHC MED & PEDS [address] [place] [address] Marci Francois LPN Social History Tobacco Use Types Packs/Day Years [...] Description 05/26/2024 10:00 AM EST Office Visit [facility] ADULT DENTAL [address] [place] [address] Mau Macdonald DDS [address] [place] [address] 07/08/2024 2:00 PM EDT Office Visit [facility] MEDICINE [address] [place] [address] You Bedolla MD [address] [place] [address] documented as of this encounter Procedures Procedure Name Priority Date/Time Associated Diagnosis Comments URINALYSIS, COMPLETE, WITH REFLEX TO CULTURE Routine 06/15/2022 3:01 PM EST INFLUENZA A B2 ID NOW (LEPE) Routine 06/15/2022 2:59 PM EST COVID-19 ID NOW ([place]PE) Routine 06/15/2022 2:59 PM EST HIGH SENSITIVITY TROPONIN I Routine 06/15/2022 2:59 PM EST CBC WITH AUTO DIFFERENTIAL Routine 06/15/2022 2:59 PM EST MAGNESIUM Routine 06/15/2022 2:59 PM EST LIPASE Routine 06/15/2022 2:59 PM EST COMPREHENSIVE METABOLIC PANEL Routine 06/15/2022 2:59 PM EST documented in this encounter Results * (ABNORMAL) Urinalysis, Complete, with Reflex to Culture (06/15/2022 3:01 PM EST) Color Urine Yellow [facility] Appearance Urine Clear [facility] PH 5.5 5.0 - 9.0 [facility] Glucose Urine UA >=1000(A) Negative mg/dL [facility] Urine Blood Negative Negative [facility] Specific Vale - Urine 1.015 1.005 - 1.025 [facility] Urine Protein Negative Neg-Trace mg/dL [facility] Urine Ketones Negative Negative mg/dL [facility] Nitrite Urine Negative Negative [facility] Leukocyte Esterase Urine Negative Negative [facility] RBC Urine 0-2 0 - 2 /HPF [facility] Urine WBC 0-5 0 - 5 /HPF [facility] Urine Squamous Epithelial Cell 0-2 0 - 2 /HPF [facility] Urine Bacteria None Seen None Seen [facility] Hyaline Casts, Urine 0-2 0 - 2 /LPF [facility] 06/15/2022 3:01 PM EST 06/15/2022 3:05 PM EST Narrative [facility] - 06/15/2022 3:22 PM EST [id number], Clean Catch [facility] External Provider LAB URI NE ORDERABLES Final Result [facility] [address] [place] [address] [phone] * (ABNORMAL) CBC auto differential (06/15/2022 2:59 PM EST) White Blood Count 8.6 4.8 - 10.8 X10*3/uL [facility] Red Blood Count 4.73 4.20 - 5.50 X10*6/uL [facility] Hemoglobin 13.4 12.0 - 16.0 g/dl [facility] Hematocrit 41.9 37.0 - 47.0 % [facility] Mean Corpuscular Volume 88.6 80.0 - 98.0 fL [facility] Mean Corpuscular Hemoglobin 28.3 27.0 - 33.0 pg [facility] Mean Corpuscular HGB Conc 32.0 31.0 - 35.0 g/dl [facility] Red Cell Distribution Width 13.9 11.0 - 16.0 % [facility] Platelet Count 111(L) 160 - 400 X10*3/uL [facility] Mean Platelet Volume 11.8 9.4 - 12.3 fL [facility] Neutrophils Percent Auto 74.0(H) 45 - 73 % [facility] Imm Gran Pct Auto 0.3 0.0 - 0.4 % [facility] Lymphocytes Percent Auto 13.4(L) 20 - 40 % [facility] Monocytes Percent Auto 11.5(H) 2 - 11 % [facility] Eosinophils Percent Auto 0.5 0 - 4 % [facility] Basophils Percent Auto 0.3 0 - 2 % [facility] NRBC Pct Auto 0.0 0.0 - 0.2 /100WBC [facility] Neutrophils Absolute Auto 6.3 2.0 - 8.3 x10*3/uL [facility] Imm Gran Abs Auto 0.03 0.00 - 0.03 X10*3/uL [facility] Lymphocytes Absolute Auto 1.2 1.2 - 4.9 X10*3/uL [facility] Monocytes Absolute Auto 1.0 0.1 - 1.2 X10*3/uL [facility] Eosinophils Absolute Auto 0.0 0.0 - 0.4 X10*3/uL [facility] Basophils Absolute Auto 0.0 0.0 - 0.2 X10*3/uL [facility] NRBC Abs Auto 0.000 0.0 - 0.012 X10*3/uL [facility] 06/15/2022 2:59 PM EST 06/15/2022 3:05 PM EST [facility] External Provider LAB BLO OD ORDERABLES Final Result [facility] [address] [place] [phone] * COVID-19 ID NOW ([place]PE) (06/15/2022 2:59 PM EST) IDNOW SERIAL# [id number] [facility] COVID-19 TEST Negative Negative [facility] Comment:TESTED BY: [id number] COVID-19 NOTE See Note [facility] Comment: Results are for the identification of SARS-CoV2 RNA. TheSARS-CoV2 RNA is generally detectable in respiratory samplesduring the acute phase of infection. Positive results areindicative of the presence of SARS-CoV-2 RNA; clinicalcorrelation with patient history and other diagnosticinformation is necessary to determine patient infectionstatus. Positive results do not rule out bacterial infectionor co- infection with other viruses.Testing facilities within the [facility] and [facility] are required to report all positive results tothe appropriate public health authorities.Negative results should be treated as presumptive and, ifinconsistent with clinical signs and symptoms or necessaryfor patient management, should be tested with differentauthorized or cleared molecular tests. Negative results donot preclude SARS-CoV2 RNA infection and should not be usedas the sole basis for patient management decisions. Negativeresults should be considered in the context of a patient'srecent exposures, history and the presence of clinical signsand symptoms consistent with COVID-19.This test has been authorized by the FDA under an EmergencyUse Authorization (EUA) for use by authorized laboratories.Testing performed on the [place] ID NOW utilizing NAAT. 06/15/2022 2:59 PM EST 06/15/2022 3:05 PM EST [facility] Exter nal Provider LAB MOLECULAR DIAGNOSTICS ORDERABLES Final Result Performing Organization Address [facility] Co de Phone Number [facility] [address] [place] [phone] * HIGH SENSITIVITY TROPONIN I (06/15/2022 2:59 PM EST) [facility] TROPONIN I HIGH SENSITIVITY 16.9 <3.5 - 17.0 ng/L [facility] Comment:The [place] high sens itivity Troponin-I results should beused in conjunction with other diagnostic information suchas ECG, clinical observations and information, and patientsymptoms to aid in the diagnosis of DE. 06/15/2022 2:59 PM EST 06/15/2022 3:05 PM EST [facility] External Provider LAB BLO OD ORDERABLES Final Result Performing Organization Address [facility] Co de Phone Number [facility] [address] [place] [phone] * Influenza A B2 ID NOW ([place]) (06/15/2022 2:59 PM EST) Pathologist [facility] IDNOW SERIAL# [id number] [facility] Influenza A Negative Negative [facility] Influenza B2 Negative Negative [facility] Influenza A B2 Note See Note [facility] Comment:The [place] ID NOW In fluenza A B2 test is used for thequalitative detection of influenza A and B from patientswith signs and symptoms of respiratory infection.Negative results do not preclude influenza virus infectionand should not be used as the sole basis for diagnosis,treatment or other patient management decisions.There is a risk of false negative results due to thepresence of variants in the viral targets of the assay, lowlevels of virus in the specimen and co- infection withRespiratory Syncytial Virus. 06/15/2022 2:59 PM EST 06/15/2022 3:05 PM EST [facility] Exter nal Provider LAB MICROBIOLOGY - GENERAL ORDERABLES Final Result Performing Organization Address [facility] Co de Phone Number [facility] [address] [place] [phone] * Lipase (06/15/2022 2:59 PM EST) Lipase 50 8 - 78 U/L [facility] 06/15/2022 2:59 PM EST 06/15/2022 3:05 PM EST [facility] External Provider LAB BLO OD ORDERABLES Final Result Performing Organization Address [place] Co de Phone Number [facility] [address] [place] [phone] * Magnesium (06/15/2022 2:59 PM EST) Magnesium 1.9 1.6 - 2.6 mg/dL [facility] 06/15/2022 2:59 PM EST 06/15/2022 3:05 PM EST [facility] External Provider LAB BLO OD ORDERABLES Final Result Performing Organization Address [facility] Co de Phone Number [facility] [address] [place] [phone] * (ABNORMAL) Comprehensive Metabolic Panel (06/15/2022 2:59 PM EST) Sodium 143 135 - 145 mmol/L [facility] Potassium 3.9 3.3 - 5.1 mmol/L [facility] Chloride 109(H) 96 - 108 mmol/L [facility] Carbon Dioxide 24 22 - 29 mmol/L [facility] Anion Gap 14 12 - 20 [facility] Urea Nitrogen (BUN) 10 9 - 16 mg/dL [facility] Creatinine, Serum 0.95 0.5 - 1.4 mg/dL [facility] Creatinine Clr Calc Pharmacy 44.7 [facility] Comment:Provided height and weight: 152.4 cm,70.307 kg.eGFR (calculated from the MDRD study equation) and eCrCl(calculated from the Cockcroft-Gault equation) are based ondifferent parameters and may not yield comparable results.If eCrCl result is absurd, please check patient'sheight/weight. Estimated Glomerular Filt Rate 57 [facility] Comment:NOTE: For -Am erican individuals, multiply the result by 1.210.Chronic Kidney Disease: Estimated GFR < 60 mL/min/1.20h9Irslur Kidney Disease: Estimated GFR < 15 mL/min/1.73m2 Glucose 201(H) 60 - 115 mg/dL [facility] Calcium 9.2 8.4 - 10.2 mg/dL [facility] Bilirubin, Total 0.9 0.0 - 1.0 mg/dL [facility] Aspartate Amino Transferase 49(H) 5 - 31 U/L [facility] Alanine Aminotransferase 50(H) 0 - 31 U/L [facility] Total Protein 7.6 6.5 - 8.0 g/dL [facility] Albumin Level 4.0 3.5 - 5.0 g/dL [facility] Alkaline Phosphatase 119(H) 39 - 117 U/L [facility] 06/15/2022 2:59 PM EST 06/15/2022 3:05 PM EST us [facility] External Provider LAB BLO OD ORDERABLES Final Result [facility] [address] [place] [address] [phone] documented in this encounter Visit Diagnoses Not on filedocumented in this encounter Care Teams Internal Control Consultant Relationship Specialty Start Date End Date You Bedolla MD [address] [place] [phone] PCP - General Internal Medicine 05/27/14 documented as of this encounter
--- OUTSIDE RECORDS SUMMARY | 2024-05-16 15:16 | XMS_ITS | Encounter Summary ---
Author Organization [facility] Address [address] [place] [address] Care Team Providers Care Turf Farm Worker Name Role Phone You Martinez Primary Care Provider + Encounter Details Date Type Department Care Team (Late st Contact Info) Description 10/07/2020 Orders Only [facility] CT Scan [address] [place] [address] Saúl Santana MD PhD [address] [place] [address] Social History Tobacco Use Types Packs/Day Years [...] on filedocumented in this encounter Care Teams Turf Farm Worker Relationship Specialty Start Date End Date You Martinez [address] [place] [phone] PCP - General Internal Medicine 10/06/19 documented as of this encounter
--- OUTSIDE RECORDS SUMMARY | 2024-05-16 15:16 | XMS_ITS | Encounter Summary ---
Author Organization [employer] [facility] Address [address] [place] [address] 7t [place] [address] Care Team Providers Care Bakery Deliverer Name Role Phone You Bedolla MD Primary Care Provide r Encounter Details Date Type Department Care Team (Latest Contact Info) Description 01/26/2022 Abstract [facility] CONVERSIONS Dental, Provider, DDS Social History Tobacco [...] Description 05/26/2024 10:00 AM EST Office Visit [facility] ADULT DENTAL [address] [place] [address] Mau Macdonald DDS [address] [place] [address] 07/08/2024 2:00 PM EDT Office Visit [facility] MEDICINE [address] [place] [address] You Bedolla MD [address] [place] [address] documented as of this encounter Visit Diagnoses Not on filedocumented in this encounter Care Teams Bakery Deliverer Relationship Specialty Start Date End Date You Bedolla MD [address] [place] [phone] PCP - General Internal Medicine 05/27/14 documented as of this encounter
--- OUTSIDE RECORDS SUMMARY | 2024-05-16 15:16 | XMS_ITS | Encounter Summary ---
Author Organization [employer] Address [address] [facility] [address] [place] [address] Care Team Providers Care Turkey Egg Gatherer Name Role Phone You Bedolla MD Primary Care Provide r Reason for Visit * Reason Onset Date Comments DME L&C 04/29/2024 Encounter Details Date Type Department Care Team ([facility] st Contact Info) Description 04/29/2024 Telephone [facility] MEDICINE [address] [place] [address] You Bedolla MD [address] [place] [address] AM[facility] L&C Social History Tobacco Use Types Packs/Day [...] Telephone Encounter - Meri Parham [place] - 04/29/2024 4:17 PM EST Received confirmation for incontinence supplies, sent to to scan. LB documented in this encounter Plan of Treatment Upcoming Encounters Date Type Department Care Team (Late st Contact Info) Description 05/26/2024 10:00 AM EST Office Visit [facility] ADULT DENTAL [address] [place] [address] Mau Macdonald DDS [address] [place] [address] 07/08/2024 2:00 PM EDT Office Visit [facility] MEDICINE [address] [place] [address] You Bedolla MD [address] [place] [address] documented as of this encounter Goals Goal [...] documented as of this encounter Care Teams Turkey Egg Gatherer Relationship Specialty Start Date End Date You Bedolla MD [address] [place] [phone] PCP - General Internal Medicine 05/27/14 documented as of this encounter
--- OUTSIDE RECORDS SUMMARY | 2024-05-16 15:16 | XMS_ITS | Encounter Summary ---
Author Organization [employer] [facility] Address [address] [facility] 7t [place] [address] Care Team Providers Care Database Software Technician Name Role Phone You Bedolla MD Primary Care Provide r Reason for Visit * Reason Comments Med Refill Encounter Details Date Type Department Care Team (Late Contact Info) Description 08/31/2022 Refill [facility] MEDICINE [address] [place] [address] Charles Myrick, PharmD [address] [place] [address] Social History Tobacco Use Types Packs/Day Years [...] Upcoming Encounters Date Type Department Care Team ([facility] Contact Info) Description 05/26/2024 10:00 AM EST Office Visit [facility] ADULT DENTAL [address] [place] [address] Mau Macdonald DDS [address] [place], [place] [phone] 07/08/2024 2:00 PM EDT Office Visit [facility] MEDICINE [address] [place], [place] [phone] You Bedolla MD [address] [place], [place] [phone] documented as of this encounter Goals Goal Patient Goal Type Associated Problems Recent Progress Patient-Stated? Author Blood Pressure < 140/90 Blood Pressure Essential hypertension 140/84(2023 2:32 PM EST) Charles Underwood, PharmD documented as of this encounter Visit Diagnoses Not on filedocumented in this encounter Care Teams Database Software Technician Relationship Specialty Start Date End Date You Bedolla MD [address] [place] [address] [phone] PCP - General Internal Medicine 05/27/14 documented as of this encounter
--- OUTSIDE RECORDS SUMMARY | 2024-05-16 15:16 | XMS_ITS | Encounter Summary ---
Author Organization [facility] Address [address] [place] [address] Care Team Providers Care Director Of Institutional Giving Name Role Phone You Martinez Primary Care Provider + Encounter Details Date Type Department Care Team (Late st Contact Info) Description 07/23/2020 Orders Only [facility] Interventional Radiology [address] [place] [phone] Logan Hill MD [address] [place] [phone] Social History Tobacco Use Types Packs/Day Years [...] on filedocumented in this encounter Care Teams Director Of Institutional Giving Relationship Specialty Start Date End Date You Martinez [address] [place] [phone] PCP - General Internal Medicine 10/06/19 documented as of this encounter
--- OUTSIDE RECORDS SUMMARY | 2024-05-16 15:16 | XMS_ITS | Encounter Summary ---
Author Organization [employer] Address [address] [place] [address] 7t [place] [address] Care Team Providers Care Can Closing Machine Tender Name Role Phone You Bedolla MD Primary Care Provide r Reason for Visit * Reason Comments Med Refill Encounter Details Date Type Department Care Team (Late st Contact Info) Description 01/16/2023 Refill [facility] MEDICINE [address] [place] [address] You Bedolla MD [address] [place] [address] Low back pain at multiple sites Social [...] Description 05/26/2024 10:00 AM EST Office Visit [facility] ADULT DENTAL [address] [place] [address] Mau Macdonald DDS [address] [place], [place] [phone] 07/08/2024 2:00 PM EDT Office Visit [facility] MEDICINE [address] [place] [address] You Bedolla MD [address] [place] [address] documented as of this encounter Goals Goal Patient Goal Type Associated Problems Recent Progress Patient-Stated? Author Blood Pressure < 140/90 Blood Pressure Essential hypertension 140/84(2023 2:32 PM EST) Charles Underwood, PercyD documented as of this encounter Visit Diagnoses Diagnosis Low back pain at multiple sites documented in this encounter Care Teams Can Closing Machine Tender Relationship Specialty Start Date End Date You Bedolla MD [address] [place] [address] PCP - General Internal Medicine 05/27/14 documented as of this encounter
--- OUTSIDE RECORDS SUMMARY | 2024-05-16 15:16 | XMS_ITS | Encounter Summary ---
Author Organization [employer] Address [address] [facility] [address]t [place] [address] Care Team Providers Care Detective Sergeant Name Role Phone You Bedolla MD Primary Care Provide r Encounter Details Date Type Department Care Team (Late Contact Info) Description 06/22/2022 Abstract [facility] ADULT DENTAL [address] [place] [address] Mau Macdonald DDS [address] [place] [address] Social History Tobacco Use Types Packs/Day Years [...] Description 05/26/2024 10:00 AM EST Office Visit [facility] ADULT DENTAL [address] [place] [address] Mau Macdonald DDS [address] [place] [address] 07/08/2024 2:00 PM EDT Office Visit [facility] MEDICINE [address] [place] [phone] You Bedolla MD [address] [place] [address] documented as of this encounter Visit Diagnoses Not on filedocumented in this encounter Care Teams Detective Sergeant Relationship Specialty Start Date End Date You Bedolla MD [address] [place] [phone] PCP - General Internal Medicine 05/27/14 documented as of this encounter
--- OUTSIDE RECORDS SUMMARY | 2024-05-16 15:16 | XMS_ITS | Encounter Summary ---
Author Organization [employer] Address [address] [facility] 7t [place] [address] Care Team Providers Care Conveyor Belt Installer Name Role Phone You Bedolla MD Primary Care Provide r Reason for Visit * Reason Onset Date Comments Letter for Housing 07/25/2022 I called the pt regarding her request for a letter, so that her daughter could be allowed to accompany her during the night. She stated that the letter is for housing. She lives alone, and has episodes of dizziness and anxiety. She feels that she needs to have someone with her during the night, in the event that she does not feel well. Encounter Details Date Type Department Care Team (Late st Contact Info) Description 07/25/2022 Telephone [facility] MEDICINE [address] [place] [address] You Bedolla MD [address] [place] [address] Letter for Housing (I called the pt regarding her request for a letter, so that her daughter could be allowed to accompany her during the night. She stated that the letter is for housing. She lives alone, and has episodes of dizziness and anxiety. She feels that she needs to have someone with her during the night, in the event that she does not feel well. ) Social History Tobacco Use Types Packs/Day Years [...] Recorded In the last 10 days, have macario u been in contact with someone who was confirmed or suspected to have Coronavirus/COVID-19? No / Unsure 07/13/2022 2:01 PM EDT documented as of this encounter Miscellaneous Notes * Telephone Encounter - Aslhee Robledo [place] - 07/25/2022 10:38 AM EDT I called the pt regarding her request for a letter, so that her daughter could be allowed to accompany her during the night. She stated that the letter is for housing. She lives alone, and has episodes of dizziness and anxiety. She feels that she needs to have someone with her during the night, in the event that she does not feel well. documented in this encounter Plan of Treatment Upcoming Encounters Date Type Department Care Team (Late st Contact Info) Description 05/26/2024 10:00 AM EST Office Visit [facility] ADULT DENTAL [address] [place] [address] Mau Macdonald DDS [address] [place] [address] 07/08/2024 2:00 PM EDT Office Visit [facility] MEDICINE [address] [place] [address] You Bedolla MD [address] [place] [address] documented as of this encounter Visit Diagnoses Not on filedocumented in this encounter Care Teams Conveyor Belt Installer Relationship Specialty Start Date End Date You Bedolla MD [address] [place] [phone] PCP - General Internal Medicine 05/27/14 documented as of this encounter
--- OUTSIDE RECORDS SUMMARY | 2024-05-16 15:16 | XMS_ITS | Encounter Summary ---
Author Organization [facility] Address [address] [place] [address] [address] [place] [address] Care Team Providers Care Repair Clerk Name Role Phone You Bedolla MD Primary Care Provide r Encounter Details Date Type Department Care Team (Latest Contact Info) Description 09/10/2018 Abstract [facility] CONVERSIONS Dental, Provider, DDS Social History Tobacco [...] Description 05/26/2024 10:00 AM EST Office Visit [facility] ADULT DENTAL [address] [place] [address] Mau Macdonald DDS [address] [place] [address] 07/08/2024 2:00 PM EDT Office Visit [facility] MEDICINE [address] [place] [address] You Bedolla MD [address] [place] [address] documented as of this encounter Visit Diagnoses Not on filedocumented in this encounter Care Teams Repair Clerk Relationship Specialty Start Date End Date You Bedolla MD [address] [place] [phone] PCP - General Internal Medicine 05/27/14 documented as of this encounter
--- OUTSIDE RECORDS SUMMARY | 2024-05-16 15:17 | XMS_ITS ---
Author Organization [facility] Address [address] [place] [address] Care Team Providers Care Etl Software Engineer Name Role Phone Judith Rader MD, You Primary Care Provide Chico Mckeon [phone] Encounters Encounter Location Date Provider Diagnosis [facility] [address] [place] [address] 11/15/2023 Chico Johns PLAN OF TREATMENT Next Appt Details Provider Name:Chico Johns , 11/12/2024 01:20:00 PM, [address], [address], [place], [address],
--- OUTSIDE RECORDS SUMMARY | 2024-05-16 15:17 | XMS_ITS | Encounter Summary ---
Author Organization [employer] Address [address] [place] [address] Care Team Providers Care Assembler Corncob Pipes Name Role Phone You Bedolla MD Primary Care Provide r Encounter Details Date Type Department Care Team ([facility] st Contact Info) Description 02/22/2023 Telephone [facility] [address] [place] [address] You Bedolla MD [address] [place] [address] Social History Tobacco Use Types Packs/Day Years Used Date Smoking Tobacco: Former Cigarettes Q uit: 2012 Passive Smoke Exposure: Never Smokeless Tobacco: Never Alcohol Use Standard Drinks/Week Comments Never 0 (1 standard drink = 0.6 oz pur e alcohol) Housing Stability Answer Date Recorded What is your housing situation today? I have housing today, but I am worried about losing housing in the future 02/13/[address] you li ve. Do you have problems with any of the following? None of the above 02/13/2023 Food Insecurity Answer Date Recorded Within the past 12 months, y ou worried that your food would run out before you got money to buy more: Never True 02/13/2023 Within the past 12 months,th e food you bought just didn't last and you didn't have enough money to get more: Never True Transportation Answer Date Recorded In the past 12 months, has l ack of transportation kept you from medical appts, meetings, work or from getting things needed for daily living? No 02/13/2023 Utilities Answer Date Recorded In the past 12 months, has t he electric, gas, oil or water company threatened to shut off services in your home? No 02/13/2023 Depression Answer Date Recorded Patient Health Questionnaire-2 [...] Description 05/26/2024 10:00 AM EST Office Visit [facility] [address] [place] [address] Mau Macdonald DDS [address] [place] [address] 07/08/2024 2:00 PM EDT Office Visit [facility] [address] [place] [address] You Bedolla MD [address] [place] [address] documented as of this encounter Goals Goal Patient Goal Type Associated Problems Recent Progress Patient-Stated? Author Blood Pressure < 140/90 Blood Pressure Essential hypertension 140/84(2023 2:32 PM EST) No Charles Myrick, PharmD documented as of this encounter Visit Diagnoses Not on filedocumented in this encounter Care Teams Assembler Corncob Pipes Relationship Specialty Start Date End Date You Bedolla MD [address] [place] [address] PCP - General Internal Medicine 05/27/14 documented as of this encounter
== END 2024-05-16 13:32 | disposition home or self-care (01) ==
LOC: HO.MAMMO 13:31
PROVIDERS: PCP Internal Medicine; Visit Provider Internal Medicine
DX: Z12.31 Encounter for screening mammogram for malignant neoplasm of breast (principal)
CPT/HCPCS: 77063; 77067

== ENCOUNTER → 2024-05-16 13:45 | Outpatient (BNV) | payer OTHER, SELFPAY | PROVIDERS: PCP Internal Medicine; Visit Provider Internal Medicine | DX: Z12.31 Encounter for screening mammogram for malignant neoplasm of breast (principal) | CPT/HCPCS: 77063; 77067 ==

== ENCOUNTER 2024-06-02 09:56 | Outpatient (REF) | payer OTHER, SELFPAY ==
--- OUTSIDE RECORDS SUMMARY | 2024-06-02 10:46 | XMS_ITS | Encounter Summary ---
Author Organization [facility] Address [address] [place] [address] Care Team Providers Care Collar Feller Name Role Phone You Martinez Primary Care Provider + Encounter Details Date Type Department Care Team (Late st Contact Info) Description 09/08/2021 Orders Only [facility] XRay [address] [place] [address] Curtis Ray [address] [place] [address] Social History Tobacco Use Types Packs/Day Years [...] on filedocumented in this encounter Care Teams Collar Feller Relationship Specialty Start Date End Date You Martinez [address] [place] [address] PCP - General Internal Medicine 10/06/19 documented as of this encounter
--- OUTSIDE RECORDS SUMMARY | 2024-06-02 10:46 | XMS_ITS | Clinical Summary ---
Author Organization [employer] Address [address] [facility] 7[address] [place] [address] Care Team Providers Care Career Resource Specialist Name Role Phone You Bedolla MD Primary Care Provide r Allergies Active Allergy Reactions Criticality Noted Date Comments Yash Inhibitors Cough 04/20/2010 Medications OneTouch Ultra test stripIndications :Type 2 diabetes mellitus without complications ([facility]) TEST BLOOD SUGAR ONCE DAILY DIRECTED 50 [...] 07/20/19 23 Active Lancets (OneTouch Delica Plus Bvhijn20A) miscIndications: Type 2 diabetes mellitus without complications ([facility]) TEST BLOOD SUGAR ONCE DAILY 100 each [...] EST): Under the care of Dr. 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 Ulloa ) [...] in size. Pt was referred at the [facility] Liver clinic. She was evaluated for Liver transplant due to potentialy HCC due to Cirrhosis associated with CHAR[place] Dr Johns recommended to DC Atorvastatin and Meloxicam, I contacted [facility] to male sure both meds are taken out of her med boxes. She had her colonoscopy 07/01/2021 Dr Johns recommended NO further colonoscopies Pt was last seen by Dr Ulloa Liver specialist at [facility] 08/01/2022 He does not think she needs to be in the liver transplant and they neftaly follow her with scans every 6 months and will treat accordingly if needed if she was to develop HCC Assessment & Plan (09/07/2022 2:15 PM EDT): Here for a f/u Under the care of [facility] transplant [facility] ( Dr. Ulloa ) [...] in size. Pt was referred at the [facility] Liver clinic. She was evaluated for Liver transplant due to potentialy HCC due to Cirrhosis associated with [place] Dr Johns recommended to DC Atorvastatin and Meloxicam, I contacted [facility] to male sure both meds are taken out of her med boxes. She had her colonoscopy 07/01/2021 Dr Johns recommended NO further colonoscopies Pt was last seen by Dr Ulloa Liver specialist at [facility] 08/01/2022 He does not think she needs to be in the liver transplant and they neftaly follow her with scans every 6 months and will treat accordingly if needed if she was to develop HCC Assessment & Plan (07/13/2022 9:52 AM EDT): Here for a f/u Under the care of [facility] transplant [facility] ( Dr. Ulloa ) [...] in size. Pt was referred at the [facility] Liver clinic. She is currently undergoing evaluation for Liver transplant due to potentialy HCC due to Cirrhosis associated with [place] Dr Johns recommended to DC Atorvastatin and Meloxicam, I contacted [facility] to male sure both meds are taken out of her med boxes. She had her colonoscopy 07/01/2021 Dr Johns recommended NO further colonoscopies pt has an upcoming appointment at [facility] 05/02/2021 Assessment & Plan (04/20/2022 3:10 PM EST): Here for a f/u Under the care of [facility] transplant [facility] ( Dr. Ulloa ) [...] in size. Pt was referred at the [facility] Liver clinic. She was last seen last [...] colonoscopies pt has an upcoming appointment at [facility] 05/02/2021 Diverticulosis of colon 04/20/2022 Elevated alpha [...] statins Previous visit she told me her auto club travel counselor asked her to stop one medication, I [...] statins Previous visit she told me her auto club travel counselor asked her to stop one medication, I [...] statins Previous visit she told me her auto club travel counselor asked her to stop one medication, I [...] statins Previous visit she told me her auto club travel counselor asked her to stop one medication, I [...] Type Department Care Team Description 05/14/2024 Refill [facility] CHC MED & PEDS [address] [place] [address] You Bedolla MD Low back pain at multiple sites 05/05/2024 Refill [facility] MEDICINE [address] [place] [address] You Bedolla MD Osteoporosis, unspecified osteoporosis type, unspecified pathological fracture presence 04/29/2024 Telephone [facility] MEDICINE [address] [place] [address] You Bedolla MD DME L&C 04/21/2024 Telephone [facility] MEDICINE [address] [place] [address] Nellie Ortez MA DME from L&C 04/17/2024 Telephone [facility] [place] [address] You Bedolla MD Durable Medical Equipment 04/15/2024 Telephone [facility] [place] [address] Nellie Ortez MA DME from L&C 04/08/2024 2:15 PM EST Office Visit [facility] [place] [address] You Bedolla MD Other emphysema (CMS/HCC) (Primary Dx); Type 2 diabetes mellitus without complication, without long-term current use of insulin (CMS/HCC); Essential hypertension; Mixed hyperlipidemia; Preventative health care; Breast cancer screening, high risk patient; Low back pain at multiple sites; Tinea cruris; Breast cancer screening by mammogram 04/08/2024 Travel 04/02/2024 Telephone [facility] [place] [address] You Bedolla MD Chart Prep 03/17/2024 Telephone [facility] [place] [address] You Bedolla MD [facility] (I informed the patient that [facility] were ordered, and she may come to the [facility] lab at her convenience, to have [...] before her appointment, she will call the [facility].) 2024 Telephone [facility] [place] [address] Jamia Bliss RN Paperwork/Forms 03/10/2024 Telephone [facility] [place] [address] You Bedolla MD Durable Medical Equipment 03/07/2024 Refill [facility] MED [facility] PEDS [address] [place] [address] You Bedolla MD Low back pain at multiple sites 03/06/2024 Telephone [facility] MEDICINE [address] [place], [place] [id number] You Bedolla MD April Recall from Last 3 Months Immunizations Name Administration [...] Care Team (Late st Contact Info) Description 07/08/2024 2:00 PM EDT Office Visit [facility] MED[facility]INE [address] [facility] [address] You Bedolla MD [address] [facility] [place] [address] Health Maintenance Due Date Last Done Comments [...] Dental Prophylaxis 05/25/2024 11/22/2023, 1 , 01/26/2022 Diagnostic Breast Imaging 05/28/2024 12/18/2019 Diabetes: Hemoglobin A1C 10/07/2024 024, 05/15/2023, 01/18/2023, Additional history exists Alcohol/Substance Use Screening 04/08/2025 04/08/2024 Tobacco Screening 04/08/2025 04/08/2024 Dental X-Ray: Full Mouth 01/27/2026 01/26/2023 DTaP/Tdap/Td Vaccines (3 - Td or Tdap) 12/03/2030 12/03/2020, 08/29/2013, 10/12/2004 Hepatitis B Vaccines Completed 12/03/2020, 09/30/2013, 08/29/2013 Pneumococcal Vaccine: 50+ Years Completed 12/03/2020, 02/08/2017, 12/24/2014, Additional history [...] Procedure Name Priority Date/Time Associated Diagnosis Comments BI MAMMOGRAM SCREENING TOMOSYNTHESIS BILATERAL Routine 05/16/2024 1:45 PM EST Breast cancer screening by mammogram POCT GLYCATED HEMOGLOBIN, TOTAL Routine 04/08/2024 2:33 PM EST Type 2 diabetes mellitus without complication, without long-term current use of insulin ([facility]) POCT GLUCOSE Routine 04/08/2024 2:21 PM EST Type 2 diabetes mellitus without complication, without long-term current use of insulin ([facility]) PROPHYLAXIS - ADULT Routine 11/22/2023 1 :00 PM EDT Dental plaque LIPID PANEL WITH REFLEX TO DIRECT LDL Routine 05/16/2023 10:26 AM EST Type 2 diabetes mellitus without complication, without long-term current use of insulin ([facility]) PERIODIC ORAL EVALUATION - ESTABLISHED PATIENT Routine 02/14/2023 1:00 PM EDT HEPATITIS C AB W/REFL TO HCV RNA, QN, PCR Routine 05/05/2022 9:23 AM EST Non-alcoholic cirrhosis (CMS/HCC) ALBUMIN, RANDOM URINE W/CREATININE Routine 12/28/2021 8:44 AM EDT BI MAMMOGRAM DIAGNOSTIC BILATERAL Routine 12/18/2019 12:33 PM EDT from Last 3 Months or Most Recently Relevant to Health Maintenance Results * BI Mammogram Screening Tomosynthesis Bilateral (05/16/2024 1:45 PM EST) Anatomical Region Laterality Modality Breast Bilateral Mammography 05/16/2024 1:45 PM EST Narrative 05/26/2024 5:10 PM EST ? [facility] [place] ? [address] ?[place] [address] ? Mammography Report ? Signed ? Patient: Mc,Angella ?MR#: [id number] ?? 12 ? : 1945 ?Acct:[id number] ? Age/Sex: 79 / F ?ADM Date: /24/25 ? Loc: HO.MAMMO ? Attending Dr: You Martinez MD ? Ordering Physician: You Martinez MD ?Results: 0Incomplete: Needs Additional Imaging ?? Evaluation ? Date of Service: 05/16/24 ?Follow Up: Additional Imagi ?? ng ? Procedure(s): MM tomosynthesis screening BI ?? Accession Number(s): [id number] ? cc: You Martinez MD ? EXAMINATION: ?? MM SCREENING DIGITAL BREAST TOMOSYNTHESIS, BILATERAL ? CLINICAL INFORMATION: ? Screening. Asymptomatic. ? COMPARISON: ?? Mammography: Comparison is made with available priors ? TECHNIQUE: ?? Digital breast mammography with tomosynthesis is performed in both the ?? craniocaudal and mediolateral oblique views along with computer-aided ?? detection (CAD). ? FINDINGS: ?? There are scattered areas of fibroglandular density (ACR BI-RADS breast ?? composition Category b). ?? Left: ?? Focal asymmetry upper outer breast anterior depth. ?? No suspicious calcifications or other abnormal findings. ? Right: ?? There are no significant masses, abnormal calcifications, or other ?? abnormalities. ? MM/MM tomosynthesis screening BI ?? IMPRESSION: ?? Additional imaging is recommended ? ASSESSMENT: ? BI-RADS BI-RADS 0 - Incomplete: Needs additional Imaging. ? RECOMMENDATION: ?? 1. Additional views of the left breast. ?? 2. Targeted ultrasound if warranted after review of the additional ?? views. ?? 3. Radiology department staff will contact the patient for additional ?? imaging. ? Additional Imaging required ? This examination should not preclude the clinical evaluation of a ?? suspicious palpable abnormality. ? This patient's information was entered into a reminder system with a ?? target due date for their next mammogram. ? Electronically signed by: ??Fernanda Hollis DO ??05/26/2024 05:07 PM EST ?? RP ? Dictated By: ?Fernanda Hollis DO ? Signed By: ?<Electronically signed by Fernanda Hollis, DO in OV> ? 05/26/24 170 ? DD/ 1345 ? TD/TT: 05/16/24 1410 ? Rating Examiner: ? Procedure Note Pedro, Image - 05/26/2024 [facility] [address] [place] [address] Mammography Report Signed Patient: Vivienne Bentley AMR#: [id number] 12 : 7Acct:[id number] Age/Sex: 79 / FADM Date: 05/16/24 Loc: HO.MAMMO Attending Dr: You Martinez MD Ordering Physician: You Martinez MD Results: 0Incomplete: Needs Additional Imaging Evaluation Date of Service: 05/16/24Follow Up: Additional Imagi ng Procedure(s): MM tomosynthesis screening BI Accession Number(s): [id number] cc: You Martinez MD EXAMINATION: MM SCREENING DIGITAL BREAST TOMOSYNTHESIS, BILATERAL CLINICAL INFORMATION: Screening. Asymptomatic. COMPARISON: Mammography: Comparison is made with available priors TECHNIQUE: Digital breast mammography with tomosynthesis is performed in both the craniocaudal and mediolateral oblique views along with computer-aided detection (CAD). FINDINGS: There are scattered areas of fibroglandular density (ACR BI-RADS breast composition Category b). Left: Focal asymmetry upper outer breast anterior depth. No suspicious calcifications or other abnormal findings. Right: There are no significant masses, abnormal calcifications, or other abnormalities. MM/MM tomosynthesis screening BI IMPRESSION: Additional imaging is recommended ASSESSMENT: BI-RADS BI-RADS 0 - Incomplete: Needs additional Imaging. RECOMMENDATION: 1. Additional views of the left breast. 2. Targeted ultrasound if warranted after review of the additional views. 3. Radiology department staff will contact the patient for additional imaging. Additional Imaging required This examination should not preclude the clinical evaluation of a suspicious palpable abnormality. This patient's information was entered into a reminder system with a target due date for their next mammogram. Electronically signed by: Fernanda Hollis DO 05/26/2024 05:07 PM EST RP Dictated By: Fernanda Hollis DO Signed By: <Electronically signed by Fernanda Hollis DO in OV> 05/26/24 1707 DD/ 1345 TD/TT: 05/16/24 1410 Rating Examiner: You Rader MD IMG BI PROCEDURES Fin al Result * POCT HGB A1C (04/08/2024 2:33 PM EST) Hemoglobin A1C 5.7 4.0 - 6.0 % QC Media Lot # [id number] Lot# Expiration Date Blood 04/08/2024 2:33 PM EST You Rader MD POINT OF CARE TEST EN TER/EDIT ORDERABLES Final Result * POCT Glucose (04/08/2024 2:21 PM EST) Glucose Blood, POC 117 60 - 200 mg/dL QC Media Lot # [id number] Lot# Expiration Date Blood Capillary blood specimen / Unknown 04/08/2024 2:21 PM EST You Rader MD POINT OF CARE TEST EN TER/EDIT ORDERABLES Final Result * (ABNORMAL) Lipid Panel with Reflex to Direct LDL (05/16/2023 10:26 AM EST) Triglycerides 110 <150 mg/dL [facility] Comment:Desirable Triglyceri de: less than 150 mg/dLBorderline High Triglyceride 150-199 mg/dLHigh Triglyceride: 200-499 mg/dLVery High Triglyceride: greater than or equal to 5OO mg/dL Cholesterol 267(H) <200 mg/dL [facility] Comment:Desirable Cholestero l: less than 200 mg/dLBorderline High Cholesterol: 200-239 mg/dLHigh Cholesterol: greater than 239 mg/dL LDL Cholesterol Calculated 190(H) <100 mg/dL [facility] Comment:Desirable LDL: less than 100 mg/dLNear Optimal/Above Optimal LDL: 110- 129 mg/dLBorderline High LDL: 130-159 mg/dLHigh LDL: 160-189 mg/dLVery High LDL: greater than or equal to 190 mg/dL HDL Cholesterol 55 >40 mg/dL [facility] Comment:Desirable HDL: great er than 40 mg/dL Note: This HDL assay may give artificially low results in patients with liver disease. Blood 05/16/2023 10:2 6 AM EST 05/16/2023 11:16 AM EST You Rader MD LAB BLOOD ORDERABLES Final Result [facility] [address] [place] [phone] * Hepatitis C Antibody with Reflex to HCV, RNA, Quantitative, Real-Time PCR (05/05/2022 9:23 AM EST) Hepatitis C Antibody NON-REACT LOUISE NON-REACT LOUISE [employer] [place] [employer] Index <0.02 <1.00 [employer] [place] [facility] Comment: HCV antibody was non-reactive. There is no laboratory evidence of HCV infection. In most cases, no further action is required. However, if recent HCV exposure is suspected, a test for HCV RNA (test code 85622) is suggested. For additional information please refer to http://education.[employer]/faq/JQJ83n9 (This link is being provided for informational/ educational purposes only.) Blood Venous blood specimen / Unknown 05/05/2022 9:23 AM EST 05/05/2022 9:24 AM EST Narrative [facility] - 05/05/2022 10:22 PM EST FASTING:YES FASTING: YES You Rader MD LAB BLOOD ORDERABLES Final Result [address], [place] [address] [employer] [address], ([address]) [place] [address] * ALBUMIN, RANDOM URINE W/CREATININE (12/28/2021 8:44 [...] Creatinine, Urine 108 20 - 275 mg/dL [facility] 12/28/2021 8:44 AM EDT You Rader MD LAB URINE ORDERABLES Final Result [facility] [address] * 3D BILATERAL DIAGN MAMMO 1 (12/18/2019 12:33 PM EDT) Anatomical Region Laterality Modality Breast Bilateral Mammography 12/18/2019 12:3 3 PM EDT Narrative 12/18/2019 12:35 PM EDT Refer to the Notes tab for result details [facility] Procedure: 3D BILATERAL DIAGN MAMMO 1 Procedure Note Provider, MD Elsa - 07/15/2022 Refer to the Notes tab for result details [facility] Procedure: 3D BILATERAL DIAGN MAMMO 1 us You Rader MD IMG BI PROCEDURES Fin al Result from Last 3 Months or Most Recently Relevant to Health Maintenance Insurance [facility] DENT[facility] - [facility] * Guarantor: Vivienne Bentley Account Type Relation to Patient Date of Phone Billing Address Personal/Family Self [address] [facility] [place] Care Teams Career Resource Specialist Relationship Specialty Start Date End Date You Bedolla MD [address] [place] [address] PCP - General Internal Medicine 05/27/14
--- OUTSIDE RECORDS SUMMARY | 2024-06-02 10:46 | XMS_ITS | Referral Summary ---
Author Organization [facility] Address [address] [place] [address] Care Team Providers Care [employer] Computer Science Teacher Name Role Phone You Martinez Primary Care [...] 0.5 mL IM 12/03/2020 Influenza, Injectable, Madin Loreta Canine Kidney, Preservative Free, Quadrivalent 02/26/2020 Influenza, [...] Not on file Procedures * Due to [place] linkedü law, this organization might not be sharing [...] to Health Maintenance Results * Due to [place] linkedü law, this organization might not be sharing negative HIV tests. * Hepatitis C Antibody w/Reflex to HCV RNA, Quantitative PCR (05/02/2022 4:55 PM EST) Hepatitis C Antibody NON-REACT LOUISE NON-REACT LOUISE 05/03/2022 12:16 AM EST [email or web address] Signal To Cut-Off <0.02 <1.00 05/03/2022 12:16 AM EST [email or web address] Comment: HCV antibody was non-reactive. There is no laboratory evidence of HCV infection. In most cases, no further action is required. However, if recent HCV exposure is suspected, a test for HCV RNA (test code 82729) is suggested. For additional information please refer to http://education.[employer]/faq/HVQ71a4 (This link is being provided for informational/ educational purposes only.) Blood Structure of peripheral vein / Unknown Venipuncture / Unknown 05/02/2022 4:55 PM EST 05/02/2022 5:07 PM EST Narrative [facility] - 05/03/2022 12:16 AM EST [facility] Received Date: Megan Ulloa MD LAB BLOOD ORDERABLES Final Resul t [place] [address], [address] [place] [address], [place] [phone] [employer] FRANK TARIQ [address], [address] [place] [address], [place] [phone] * CT CHEST W CONTRAST (12/03/2020 11:40 [...] obtain the completed interpretation. ? Workstation ID: [id number] Narrative 12/07/2020 8:[address] CHEST [...] chest wall appear normal. Resulting Agency Comment [id number] Procedure Note Daisy Damon MD - 12/07/2020 [...] possible to obtain thecompleted interpretation. Workstation ID: [id number] Megan Ulloa MD IMG CT PROCEDURES Final Result from Last 3 Months or Most Recently Relevant to Health Maintenance Insurance MEDICARE [facility] MEDICARE [facility] Advance Directives Documents on File Type Date Recorded Patient Plant Director Expl [facility] Care Proxy 12/15/2020 6:08 PM 12-03 Care Teams [employer] Computer Science Teacher Relationship Specialty Start Date End Date You Martinez [address] [place] [address] PCP - General Internal Medicine 10/06/19
--- OUTSIDE RECORDS SUMMARY | 2024-06-02 10:46 | XMS_ITS | Patient Health Record ---
Author Organization [facility] Address [address] [place] [address] Care Team Providers Care System Architect Name Role Phone Judith Rader MD, You Primary Care Provide r Chico Escudero Unavailable [phone] ALLERGIES No Known Allergies RESULTS Component Value Reference Range Notes Complete Blood Count Auto Di ff Reviewed date:11/23/2023 11:38:28 PM Interpretation: Performing Lab:[facility], [address] [place] [phone] Notes/Report: White Blood Count 10.2 4.8-10.8 X10*3/uL [...] INR Reviewed date:11/15/2023 07:42:47 PM Interpretation: Performing Lab:[address] [address] Notes/Report: Prothrombin Time 13.8 11.1-13.3 SEC INTERNATIONAL [...] Panel Reviewed date:11/24/2023 07:13:21 PM Interpretation: Performing Lab:[facility], [address] [place] [phone] Notes/Report: Bilirubin Total 1.2 0.0-1.0 mg/dL Bilirubin Direct 0.3 0.0-0.5 mg/dL Aspartate Amino Transferase 56 5-31 U/L Alanine Aminotransferase 52 0-31 U/L Total Protein 8.6 6.5-8.0 g/dL Albumin Level 4.3 3.5-5.0 g/dL Alkaline Phosphatase 143 39-117 U/L Alpha Fetoprotein Reviewed date:11/24/2023 07:13:47 PM Interpretation: Performing Lab:[facility], [address] [place] [phone] Notes/Report: Alpha Fetoprotein 8.0 Reference Range: <6.1 The use of AFP as a tumor marker in females is not recommended. This test was performed using the Jerilyn Jackson chemiluminescent method. Values obtained from different assay methods cannot be used interchangeably. AFP levels, regardless of value, should not be interpreted as absolute evidence of the presence or absence of disease. THIS TEST WAS PERFORMED AT: [facility] [address] [place] [phone] LIVIER OVALLE MD Liver Fibrosis Pnl Reviewed date:11/23/2023 11:35:47 PM Interpretation: Performing Lab:[facility], [address] [place] [phone] Notes/Report: Liver Fibrosis Score 0.93 Liver Fibrosis [...] a>0.62 and a<=1.00 : A3 (severe activity) OFX-Chsob-7-Macroglobulin 470 106-279 mg/dL FIB-Haptoglobin 40 43-212 mg/dL FIB-Apolipoprotein A1 175 101-198 mg/dL FIB-Total Bilirubin 1.1 0.2-1.2 mg/dL FIB-GGT 161 3-65 U/L FIB-ALT 46 6-29 U/L Reference ID [id number] Footnote SEE NOTE The reliability of results is dependent on compliance with the preanalytical and analytical conditions recommended by [employer]. The tests have to be deferred for: [...] The performance characteristics have been determined by [facility]. It has not been cleared or approved by the U.S. Food and Drug Administration. Performance characteristics refer to the analytical performance of the test. [employer], the associated logo, [employer] and all associated [employer] barry are the registered trademarks of [employer]. All third green party barry - (R) and (TM) - are the property of their respective owners. (C) [id number] [employer]. All rights reserved. THIS TEST WAS PERFORMED AT: [facility] [address] [place] [address] STEVEN VELAZQUEZ MD,PHD,MANOJ REASON FOR REFERRAL No [...] malignant neoplasm of colon (Z12.11) Active confirmed 243813871 Problem History of adenomatous polyp of colon (Z86.010) Active confirmed 123441890 Problem Hypertension (I10) Active confirmed 72480720 Problem Other cirrhosis of liver (K74.69) Active confirmed 99971051 Problem Elevated liver function tests (R79.89) Active confirmed 346380801 Problem Elevated liver enzymes (R74.8) Active confirmed 818319573 Problem Fatty liver (K76.0) Active confirmed 929218132 Problem Elevated alpha-fetoprotein (R77.2) Active confirmed 612799968 Problem Cirrhosis (K74.60) Active confirmed Cirrhotic (495809913) Problem 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 confirmed Serum alpha-fetoprotein level elevated (659433068) Problem Abnormal MRI, liver (R93.2) Active confirmed 588171647 Problem Liver fibrosis (K74.0) Active confirmed 10414474 Problem Diverticulosis of colon (K57.30) Active confirmed Diverticulosi s of colon (477155623) VITAL SIGNS Blood pressure diastolic 00 mm Hg 11/15/2023 Height 57.75 in 11/15/2023 Blood pressure systolic 00 mm Hg 11/15/2023 Weight 166 lbs 11/15/2023 BMI 34.99 kg/m2 11/15/2023 Encounters Encounter Location Date Provider Diagnosis [facility] [address] [place] [address] 11/15/2023 Chico Johns Cirrhosis K74.60 and Fatty liver K76.0 [facility] [address] [place] [address] 11/15/2023 Chico Johns ASSESSMENTS Encounter Date Diagnosis [...] Name:Chico Johns , 11/12/2024 01:20:00 PM, [address], [address], [place], [address], Insurance Providers Payer Name Payer Address Payer Phone Subscriber Number Group Number Insured Name Patient Relationship to Insured Coverage Start Date Coverage End Date [facility] [address] Attn Claims MARGARITA Smith [id number] JAREN BUI Self - patient is the insured MEDICAL (GENERAL) HISTORY Medical History History ICD Code Hyperlipidemia Hypertension Depression GERD Denies [place],DM,CVA,Lung disease,renal dise ase Tubular adenoma removed by [...] negative for H. pylori Being followed at [facility] live r transplant clinic since 2020 in regard to her cirrhosis and questionable liver lesions. In November of 2021 [facility] advised us that she is [...]
--- OUTSIDE RECORDS SUMMARY | 2024-06-02 10:46 | XMS_ITS | Encounter Summary ---
Author Organization [facility] Address [address] [place] [address] 7t [place] [address] Care Team Providers Care Orthotist/Prosthetist Name Role Phone You Bedolla MD Primary Care Provide r Encounter Details Date Type Department Care Team (Latest Contact Info) Description 09/10/2018 Abstract [facility] CONVERSIONS Dental, Provider, DDS Social History Tobacco [...] Description 07/08/2024 2:00 PM EDT Office Visit [facility] MEDICINE [address] [place] [address] You Bedolla MD [address] [place] [address] documented as of this encounter Visit Diagnoses Not on filedocumented in this encounter Care Teams Orthotist/Prosthetist Relationship Specialty Start Date End Date You Bedolla MD [address] [place] [address] PCP - General Internal Medicine 05/27/14 documented as of this encounter
--- OUTSIDE RECORDS SUMMARY | 2024-06-02 10:46 | XMS_ITS | Encounter Summary ---
Author Organization [employer] Address [address] [facility] 7t [place] [address] Care Team Providers Care Coiled Coil Inspector Name Role Phone You Bedolla MD Primary Care Provide r Reason for Visit * Reason Onset Date Comments Med Refill 05/14/2024 Encounter Details Date Type Department Care Team ([facility] st Contact Info) Description 05/14/2024 Refill [facility] MED [facility] PEDS [address] [place] [address] You Bedolla MD [address] [place] [address] Low back pain at multiple sites Social [...] accepted: Orders * Telephone Encounter - Pili Khan RN - 05/14/2024 1:07 PM EST KEEPER HELPER checked. Pt last picked up 20 day supply of oxycodone 04/15/24. Expected fill date of 05/05/24. Last saw PCP 04/08/24. Has missed several appts with [facility] pain management providers. Queued refill. * Telephone Encounter - Le Kitchen LPN - 05/14/2024 11:05 AM EST Received request on oxyCODONE (Roxicodone) 5 MG immediate release tablet documented in this encounter Plan of Treatment Upcoming Encounters Date Type Department Care Team (Late st Contact Info) Description 07/08/2024 2:00 PM EDT Office Visit [facility] MEDICINE [address] [place] [address] You Bedolla MD [address] [place] [address] documented as of this encounter Goals Goal [...] documented as of this encounter Care Teams Coiled Coil Inspector Relationship Specialty Start Date End Date You Bedolla MD [address] [place] [address] PCP - General Internal Medicine 05/27/14 documented as of this encounter
--- OUTSIDE RECORDS SUMMARY | 2024-06-02 10:46 | XMS_ITS | Encounter Summary ---
Author Organization [employer] [facility] Address [address] [facility] 7t [place] [address] Care Team Providers Care Center Hole Reamer Name Role Phone You Bedolla MD Primary Care Provide r Reason for Visit * Reason Comments Med Refill Encounter Details Date Type Department Care Team ([facility] Contact Info) Description 05/05/2024 Refill [facility] MEDICINE [address] [place], [place] [phone] You Bedolla MD [address] [place], [place] [phone] Osteoporosis, unspecified osteoporosis type, unspecified pathological fracture [...] Description 07/08/2024 2:00 PM EDT Office Visit [facility] MED[facility]INE [address] [place] [address] You Bedolla MD [address] [place] [address] documented as of this encounter Goals Goal [...] documented as of this encounter Care Teams Center Hole Reamer Relationship Specialty Start Date End Date You Bedolla MD [address] [place] [address] PCP - General Internal Medicine 05/27/14 documented as of this encounter
--- OUTSIDE RECORDS SUMMARY | 2024-06-02 10:46 | XMS_ITS | Encounter Summary ---
Author Organization [employer] [facility] Address [address] [place] [address] 7t [place] [address] Care Team Providers Care Cigarette Machine Filler Name Role Phone You Bedolla MD Primary Care Provide r Encounter Details Date Type Department Care Team (Latest Contact Info) Description 09/02/2018 Abstract [facility] CONVERSIONS Dental, Provider, DDS Social History Tobacco [...] Description 07/08/2024 2:00 PM EDT Office Visit [facility] MEDICINE [address] [place] [address] You Bedolla MD [address] [place] [address] documented as of this encounter Visit Diagnoses Not on filedocumented in this encounter Care Teams Cigarette Machine Filler Relationship Specialty Start Date End Date You Bedolla MD [address] [place] [address] PCP - General Internal Medicine 05/27/14 documented as of this encounter
--- OUTSIDE RECORDS SUMMARY | 2024-06-02 10:46 | XMS_ITS | Encounter Summary ---
Author Organization [facility] Address [address] [facility] 7t [place] [address] Care Team Providers Care Senior Sql Server Database Developer Name Role Phone You Bedolla MD Primary Care Provide r Encounter Details Date Type Department Care Team (Latest Contact Info) Description 01/26/2022 Abstract [facility] CONVERSIONS Dental, Provider, DDS Social History [...] Description 07/08/2024 2:00 PM EDT Office Visit [facility] MEDICINE [address] [place] [address] You Bedolla MD [address] [place] [address] documented as of this encounter Visit Diagnoses Not on filedocumented in this encounter Care Teams Senior Sql Server Database Developer Relationship Specialty Start Date End Date You Bedolla MD [address] [place] [address] PCP - General Internal Medicine 05/27/14 documented as of this encounter
--- OUTSIDE RECORDS SUMMARY | 2024-06-02 10:46 | XMS_ITS | Clinical Summary ---
Author Organization [facility] Address [address] [place] [address] Care Team Providers Care Tassel Clipper Name Role Phone You Martinez Primary Care [...] 0.5 mL IM 12/03/2020 Influenza, Injectable, Madin [place] Canine Kidney, Preservative Free, Quadrivalent 02/26/2020 Influenza, [...] patients) Completed 05/16/2023 Procedures * Due to [place] state law, this organization might not be [...] to Health Maintenance Results * Due to [place] state law, this organization might not be sharing negative HIV tests. * Hepatitis C Antibody w/Reflex to HCV RNA, Quantitative PCR (05/02/2022 4:55 PM EST) Hepatitis C Antibody NON-REACT LOUISE NON-REACT LOUISE 05/03/2022 12:16 AM EST [facility] Signal To Cut-Off <0.02 <1.00 05/03/2022 12:16 AM EST [employer] Comment: HCV antibody was non-reactive. There is no laboratory evidence of HCV infection. In most cases, no further action is required. However, if recent HCV exposure is suspected, a test for HCV RNA (test code 02079) is suggested. For additional information please refer to http://education.TapInko/faq/SFR90s5 (This link is being provided for informational/ educational purposes only.) Blood Structure of peripheral vein / Unknown Venipuncture / Unknown 05/02/2022 4:55 PM EST 05/02/2022 5:07 PM EST Narrative BRE MARKHAM - 05/03/2022 12:16 AM EST [facility] Received Date: us Megan Ulloa MD LAB BLOOD ORDERABLES Final Resul t BRE MARKHAM [address], [place] [address], [place] [phone] pinion-pins [facility] [address] Floor, [place] [address], [place] [phone] * CT CHEST W CONTRAST (12/03/2020 11:40 [...] obtain the completed interpretation. ? Workstation ID: [id number] Narrative 12/07/2020 8:[address] CHEST [...] chest wall appear normal. Resulting Agency Comment [id number] Procedure Note Daisy Damon MD - 12/07/2020 [...] possible to obtain thecompleted interpretation. Workstation ID: [id number] Megan Ulloa MD IM CT PROCEDURES Final Result from Last 3 Months or Most Recently Relevant to Health Maintenance Insurance MEDICARE MEDICARE Advance Directives Documents on File Type Date Recorded Patient Roller Coaster Designer Expl [facility] Health Care Proxy 12/15/2020 6:08 PM 12-03 Care Teams Tassel Clipper Relationship Specialty Start Date End Date You Martinez [address] [place] [address] PCP - General Internal Medicine 10/06/19
--- OUTSIDE RECORDS SUMMARY | 2024-06-02 10:46 | XMS_ITS | Encounter Summary ---
Author Organization [employer] Address [address] [facility] 7t [place] [address] Care Team Providers Care Music Video Producer Name Role Phone You Bedolla MD Primary Care Provide r Reason for Visit * Reason Onset Date Comments Durable Medical Equipment 02/14/2024 Encounter Details Date Type Department Care Team ([facility] st Contact Info) Description 02/14/2024 Telephone [facility] MEDICINE [address] [place] [address] You Bedolla MD [address] [place] [address] Durable Medical Equipment Social History Tobacco Use [...] - 02/14/2024 9:53 AM EDT Tc from [facility] with [facility] requesting a script for life line support. Please contact at [phone] documented in this encounter Plan of Treatment Upcoming Encounters Date Type Department Care Team (Late st Contact Info) Description 07/08/2024 2:00 PM EDT Office Visit [facility] MED[facility]INE [address] [place] [address] You Bedolla MD [address] [place] [address] documented as of this encounter Goals Goal Patient Goal Type Associated Problems Recent Progress Patient-Stated? Author Blood Pressure < 140/90 Blood Pressure Essential hypertension 140/84(2023 2:32 PM EST) No Charles Myrick, Demetrio documented as of this encounter Visit Diagnoses Not on filedocumented in this encounter Additional Health Concerns Assessment Noted Time PHQ-9 Depression Total Score: 13 024 1:37 PM EST documented as of this encounter Care Teams Music Video Producer Relationship Specialty Start Date End Date You Bedolla MD [address] [place] [address] PCP - General Internal Medicine 05/27/14 documented as of this encounter
--- OUTSIDE RECORDS SUMMARY | 2024-06-02 10:46 | XMS_ITS ---
Author Organization [facility] Address [address] [place] [address] Care Team Providers Care Nail Technician Name Role Phone Judith Rader MD, You Primary Care Provide Chico Mckeon [phone] ALLERGIES No Known Allergies REASON FOR VISIT [...] 11/15/2023 Encounters Encounter Location Date Provider Diagnosis [facility] [address] [place] [address] 11/15/2023 Chico Johns Cirrhosis K74.60 and Fatty [...] 01:20:00 PM, [address], [address], [place], [address], Progress Notes * Examination Category Sub-Category Detail [...]
--- OUTSIDE RECORDS SUMMARY | 2024-06-02 10:47 | XMS_ITS | Encounter Summary ---
Author Organization [facility] Address [address] [place] [address] Care Team Providers Care Machine I Trimmer Name Role Phone You Martinez Primary Care Provider + Encounter Details Date Type Department Care Team (Late st Contact Info) Description 07/23/2020 Orders Only [facility] Interventional Radiology [address] [place] [address] Logan Hill MD [address] [place] [address] Social History Tobacco Use Types Packs/Day Years [...] on filedocumented in this encounter Care Teams Machine I Trimmer Relationship Specialty Start Date End Date You Martinez [address] [place] [address] PCP - General Internal Medicine 10/06/19 documented as of this encounter
--- OUTSIDE RECORDS SUMMARY | 2024-06-02 10:47 | XMS_ITS | Encounter Summary ---
Author Organization [employer] Address [address] [facility] 7t [place] [address] Care Team Providers Care Bottom Steep Tender Name Role Phone You Bedolla MD [...] (Late st Contact Info) Description 07/25/2022 Telephone [facility] [address] [place] [address] You Bedolla MD [address] [place] [address] Letter for Housing (I called [...] encounter Miscellaneous Notes * Telephone Encounter - Ashlee Robledo MA - 07/25/2022 10:38 AM EDT [...] 07/08/2024 2:00 PM EDT Office Visit [facility] [address] [place] [address] You Bedolla MD [address] [place] [address] documented as of this encounter Visit Diagnoses Not on filedocumented in this encounter Care Teams Bottom Steep Tender Relationship Specialty Start Date End Date You Bedolla MD [address] [place] [address] PCP - General Internal Medicine 05/27/14 documented as of this encounter
--- OUTSIDE RECORDS SUMMARY | 2024-06-02 10:47 | XMS_ITS | Encounter Summary ---
Author Organization [employer] Address [address] [facility] 7t [place] [address] Care Team Providers Care Neurology Epilepsy Physician Name Role Phone You Bedolla MD Primary Care Provide r Encounter Details Date Type Department Care Team (Late Contact Info) Description 06/22/2022 Abstract [facility] ADULT DENTAL [address] [place] [address] Mau Macdonald DDS [address] [place] [address] Social History Tobacco Use Types Packs/Day Years [...] Department Care Team (Late Contact Info) Description 07/08/2024 2:00 PM EDT Office Visit [facility] MED[facility]INE [address] [place] [address] You Bedolla MD [address] [place] [address] documented as of this encounter Visit Diagnoses Not on filedocumented in this encounter Care Teams Neurology Epilepsy Physician Relationship Specialty Start Date End Date You Bedolla MD [address] [place] [address] PCP - General Internal Medicine 05/27/14 documented as of this encounter
--- OUTSIDE RECORDS SUMMARY | 2024-06-02 10:47 | XMS_ITS | Encounter Summary ---
Author Organization [employer] Address [address] [facility] 7t [place] [address] Care Team Providers Care Automation Specialist Name Role Phone You Bedolla MD Primary Care Provide r Encounter Details Date Type Department Care Team (Late Contact Info) Description 06/23/2022 Abstract [facility] ADULT DENTAL [address] [place], [place] [phone] Madelyn Chaparro [address] [place] [address] Social History Tobacco Use Types Packs/Day Years [...] Description 07/08/2024 2:00 PM EDT Office Visit [facility] MEDICINE [address] [place] [address] You Bedolla MD [address] [place] [address] documented as of this encounter Visit Diagnoses Not on filedocumented in this encounter Care Teams Automation Specialist Relationship Specialty Start Date End Date You Bedolla MD [address] [place] [address] PCP - General Internal Medicine 05/27/14 documented as of this encounter
--- OUTSIDE RECORDS SUMMARY | 2024-06-02 10:47 | XMS_ITS | Encounter Summary ---
Author Organization [facility] Address [address] [place] [address] Care Team Providers Care Evs Attendant Name Role Phone You Martinez Primary Care Provider + Encounter Details Date Type Department Care Team (Late st Contact Info) Description 07/23/2020 Orders Only [facility] CT Scan [address] [place] [address] Dylan White MD [address] [place], [place] [phone] Social History Tobacco Use Types Packs/Day Years [...] on filedocumented in this encounter Care Teams Evs Attendant Relationship Specialty Start Date End Date You Martinez [address] [place] [address] PCP - General Internal Medicine 10/06/19 documented as of this encounter
--- OUTSIDE RECORDS SUMMARY | 2024-06-02 10:47 | XMS_ITS | Encounter Summary ---
Author Organization [facility] Address [address] [place] [address] 7t [place] [address] Care Team Providers Care Coronary Clinical Specialist Name Role Phone You Bedolla MD Primary Care Provide r Reason for Visit * Reason Comments Med Refill Encounter Details Date Type Department Care Team (Late Contact Info) Description 01/16/2023 Refill [facility] MEDICINE [address] [place] [phone] You Bedolla MD [address] [place] [phone] Low back pain at multiple sites Social [...] Description 07/08/2024 2:00 PM EDT Office Visit [facility] MEDICINE [address] [place] [phone] You Bedolla MD [address] [place], [place] [phone] documented as of this encounter Goals Goal Patient Goal Type Associated Problems Recent Progress Patient-Stated? Author Blood Pressure < 140/90 Blood Pressure Essential hypertension 140/84(2023 2:32 PM EST) Charles Underwood, PercyD documented as of this encounter Visit Diagnoses Diagnosis Low back pain at multiple sites documented in this encounter Care Teams Coronary Clinical Specialist Relationship Specialty Start Date End Date You Bedolla MD [address] [place] [address] PCP - General Internal Medicine 05/27/14 documented as of this encounter
--- OUTSIDE RECORDS SUMMARY | 2024-06-02 10:47 | XMS_ITS ---
Author Organization [facility] Address [address] [place] [address] Care Team Providers Care Novelty Twister Operator Name Role Phone Judith Rader MD, You Primary Care Provide Chico Mckeon [phone] Encounters Encounter Location Date Provider Diagnosis [facility] [address] [place] [address] 11/15/2023 Chico Johns PLAN OF TREATMENT Next Appt Details Provider Name:Chico Johns , 11/12/2024 01:20:00 PM, [address], [address], [place], [address],
--- OUTSIDE RECORDS SUMMARY | 2024-06-02 10:47 | XMS_ITS | Encounter Summary ---
Author Organization [employer] [facility] Address [address] [facility] 7t [place] [address] Care Team Providers Care Admission Nurse Coordinator Name Role Phone You Bedolla MD Primary Care Provide r Reason for Visit * Reason Comments Med Refill Encounter Details Date Type Department Care Team ([facility] Contact Info) Description 08/31/2022 Refill [facility] MEDICINE [address] [place] [address] Charles Myrick, PharmD [address] [place] [address] Social History Tobacco Use Types Packs/Day Years [...] Upcoming Encounters Date Type Department Care Team ([facility] Contact Info) Description 07/08/2024 2:00 PM EDT Office Visit [facility] MEDICINE [address] [place] [address] You Bedolla MD [address] [place] [address] documented as of this encounter Goals Goal Patient Goal Type Associated Problems Recent Progress Patient-Stated? Author Blood Pressure < 140/90 Blood Pressure Essential hypertension 140/84(2023 2:32 PM EST) No Charles Myrick, PharmD documented as of this encounter Visit Diagnoses Not on filedocumented in this encounter Care Teams Admission Nurse Coordinator Relationship Specialty Start Date End Date You Bedolla MD [address] [place] [address] PCP - General Internal Medicine 05/27/14 documented as of this encounter
--- OUTSIDE RECORDS SUMMARY | 2024-06-02 10:47 | XMS_ITS | Encounter Summary ---
Author Organization [employer] Address [address] 7t [place] [address] Care Team Providers Care Software Design Engineer Name Role Phone You Bedolla MD Primary Care Provide r Encounter Details Date Type Department Care Team ([facility] st Contact Info) Description 02/22/2023 Telephone [facility] MEDICINE [address] [place] [address] You Bedolla MD [address] [place] [address] Social History Tobacco Use Types Packs/Day Years [...] Description 07/08/2024 2:00 PM EDT Office Visit [facility] MEDICINE [address] [place] [address] You Bedolla MD [address] [place] [address] documented as of this encounter Goals Goal Patient Goal Type Associated Problems Recent Progress Patient-Stated? Author Blood Pressure < 140/90 Blood Pressure Essential hypertension 140/84(2023 2:32 PM EST) No Charles Myrick, PercyD documented as of this encounter Visit Diagnoses Not on filedocumented in this encounter Care Teams Software Design Engineer Relationship Specialty Start Date End Date You Bedolla MD [address] [place] [phone] PCP - General Internal Medicine 05/27/14 documented as of this encounter
--- OUTSIDE RECORDS SUMMARY | 2024-06-02 10:47 | XMS_ITS | Encounter Summary ---
Author Organization [employer] Address [address] [facility] 7t [place] [address] Care Team Providers Care Wall Covering Contractor Name Role Phone You Bedolla MD Primary Care Provide r Encounter Details Date Type Department Care Team ([facility] Contact Info) Description 08/30/2022 Telephone [facility] MEDICINE [address] [place] [phone] Carrie Pickett RN Social History Tobacco Use [...] Upcoming Encounters Date Type Department Care Team ([facility] Contact Info) Description 07/08/2024 2:00 PM EDT Office Visit [facility] MEDICINE [address] [place] [phone] You Bedolla MD [address] [place], [place] [phone] documented as of this encounter Goals Goal Patient Goal Type Associated Problems Recent Progress Patient-Stated? Author Blood Pressure < 140/90 Blood Pressure Essential hypertension 140/84(2023 2:32 PM EST) No Charles Myrick, PercyD documented as of this encounter Visit Diagnoses Not on filedocumented in this encounter Care Teams Wall Covering Contractor Relationship Specialty Start Date End Date You Bedolla MD [address] [place] [phone] PCP - General Internal Medicine 05/27/14 documented as of this encounter
--- OUTSIDE RECORDS SUMMARY | 2024-06-02 10:47 | XMS_ITS | Encounter Summary ---
Author Organization [facility] Address [address] [place] [address] Care Team Providers Care Software Developer Consultant Name Role Phone You Martinez Primary Care Provider + Encounter Details Date Type Department Care Team (Late st Contact Info) Description 10/06/2020 Orders Only [facility] Interventional Radiology [address] [place], [place] [phone] Massimo Salomon MD [address] [place], [place] [phone] Social History Tobacco Use Types Packs/Day Years [...] filedocumented in this encounter Care Teams Software Developer Consultant Relationship Specialty Start Date End Date You Martinez [address] [place] [phone] PCP - General Internal Medicine 10/06/19 documented as of this encounter
--- OUTSIDE RECORDS SUMMARY | 2024-06-02 10:47 | XMS_ITS | Encounter Summary ---
Author Organization [employer] Address [address] [facility] 7t [place] [address] Care Team Providers Care Cyber Ops Planner Name Role Phone You Bedolla MD Primary Care Provide r Encounter Details Date Type Department Care Team (Late st Contact Info) Description 04/04/2022 Orders Only [facility] CHC MED & PEDS [address] [place] [address] Marci Francois LPN Social History Tobacco Use [...] Description 07/08/2024 2:00 PM EDT Office Visit [facility] MEDICINE [address] [place] [address] You Bedolla MD [address] [place] [address] documented as of this encounter Procedures Procedure [...] (06/15/2022 3:01 PM EST) Color Urine Yellow [facility] Appearance Urine Clear [facility] PH 5.5 5.0 - 9.0 [facility] Glucose Urine UA >=1000(A) Negative mg/dL [facility] Urine Blood Negative Negative [facility] Specific [place] - Urine 1.015 1.005 - 1.025 [facility] Urine Protein Negative Neg-Trace mg/dL [facility] Urine Ketones Negative Negative mg/dL [facility] Nitrite Urine Negative Negative [facility] Leukocyte Esterase Urine Negative Negative [facility] RBC Urine 0-2 0 - 2 /HPF [facility] Urine WBC 0-5 0 - 5 /HPF [facility] Urine Squamous Epithelial Cell 0-2 0 - 2 /HPF [facility] Urine Bacteria None Seen None Seen [facility] Hyaline Casts, Urine 0-2 0 - 2 /LPF [facility] 06/15/2022 3:01 PM EST 06/15/2022 3:05 PM EST Narrative [facility] - 06/15/2022 3:22 PM EST [id number], Clean Catch us [facility] External Provider LAB URI NE ORDERABLES Final Result [facility] [address] [place], [place] [phone] * (ABNORMAL) CBC auto differential (06/15/2022 2:59 PM EST) White Blood Count 8.6 4.8 - 10.8 X10*3/uL [facility] Red Blood Count 4.73 4.20 - 5.50 X10*6/uL [facility] Hemoglobin 13.4 12.0 - 16.0 g/dl [facility] Hematocrit 41.9 37.0 - 47.0 % [facility] Mean Corpuscular Volume 88.6 80.0 - 98.0 fL [facility] Mean Corpuscular Hemoglobin 28.3 27.0 - 33.0 pg [facility] Mean Corpuscular HGB Conc 32.0 31.0 - 35.0 g/dl [facility] Red Cell Distribution Width 13.9 11.0 - 16.0 % [facility] Platelet Count 111(L) 160 - 400 X10*3/uL [facility] Mean Platelet Volume 11.8 9.4 - 12.3 fL [facility] Neutrophils Percent Auto 74.0(H) 45 - 73 % [facility] Imm Gran Pct Auto 0.3 0.0 - 0.4 % [facility] Lymphocytes Percent Auto 13.4(L) 20 - 40 % [facility] Monocytes Percent Auto 11.5(H) 2 - 11 % [facility] Eosinophils Percent Auto 0.5 0 - 4 % [facility] Basophils Percent Auto 0.3 0 - 2 % [facility] NRBC Pct Auto 0.0 0.0 - 0.2 /100WBC [facility] Neutrophils Absolute Auto 6.3 2.0 - 8.3 x10*3/uL [facility] Imm Gran Abs Auto 0.03 0.00 - 0.03 X10*3/uL [facility] Lymphocytes Absolute Auto 1.2 1.2 - 4.9 X10*3/uL [facility] Monocytes Absolute Auto 1.0 0.1 - 1.2 X10*3/uL [facility] Eosinophils Absolute Auto 0.0 0.0 - 0.4 X10*3/uL [facility] Basophils Absolute Auto 0.0 0.0 - 0.2 X10*3/uL [facility] NRBC Abs Auto 0.000 0.0 - 0.012 X10*3/uL [facility] 06/15/2022 2:59 PM EST 06/15/2022 3:05 PM EST us [facility] External Provider LAB BLO OD ORDERABLES Final Result [facility] [address] [place] [address] [phone] * COVID-19 ID NOW (LEPE) (06/15/2022 2:59 PM EST) IDNOW SERIAL# [id number] [facility] COVID-19 TEST Negative Negative [facility] Comment:TESTED BY: [id number] COVID-19 NOTE See Note [facility] Comment: Results are for the identification of SARS-CoV2 RNA. TheSARS-CoV2 RNA is generally detectable in respiratory samplesduring the acute phase of infection. Positive results areindicative of the presence of SARS-CoV-2 RNA; clinicalcorrelation with patient history and other diagnosticinformation is necessary to determine patient infectionstatus. Positive results do not rule out bacterial infectionor co- infection with other viruses.Testing facilities within the [facility] and itsterritories are required to report all positive results [...] 2:59 PM EST 06/15/2022 3:05 PM EST [facility] Exter nal Provider LAB MOLECULAR DIAGNOSTICS ORDERABLES Final Result Performing Organization Address [facility] [place] [facility] Phone Number [facility] [address] [place] [phone] * HIGH SENSITIVITY TROPONIN I (06/15/2022 2:59 PM EST) [facility] TROPONIN I HIGH SENSITIVITY 16.9 <3.5 - 17.0 ng/L [facility] Comment:The [place] high sens itivity Troponin-I results should beused in conjunction with other diagnostic information suchas ECG, clinical observations and information, and patientsymptoms to aid in the diagnosis of [place]. 06/15/2022 2:59 PM EST 06/15/2022 3:05 PM EST [facility] External Provider LAB BLO OD ORDERABLES Final Result Performing Organization Address [facility] Number [facility] [address] [place] [phone] * Influenza A B2 ID NOW ([place]) (06/15/2022 2:59 PM EST) Pathologist [facility] IDNOW SERIAL# [id number] [facility] Influenza A Negative Negative [facility] Influenza B2 Negative Negative [facility] Influenza A B2 Note See Note [facility] Comment:The [place] ID NOW In [...] 2:59 PM EST 06/15/2022 3:05 PM EST [facility] Exter nal Provider LAB MICROBIOLOGY - GENERAL ORDERABLES Final Result Performing Organization Address [facility] [place] [facility] Phone Number [facility] [address] [place] [address] [phone] * Lipase (06/15/2022 2:59 PM EST) Pathologist [facility] Lipase 50 8 - 78 U/L [facility] 06/15/2022 2:59 PM EST 06/15/2022 3:05 PM EST [facility] External Provider LAB BLO OD ORDERABLES Final Result Performing Organization Address [facility] Phone Number [facility] [address] [place] [phone] * Magnesium (06/15/2022 2:59 PM EST) Pathologist [facility] Magnesium 1.9 1.6 - 2.6 mg/dL [facility] 06/15/2022 2:59 PM EST 06/15/2022 3:05 PM EST [facility] External Provider LAB BLO OD ORDERABLES Final Result Performing Organization Address [facility] Phone Number [facility] [address] [place] [phone] * (ABNORMAL) Comprehensive Metabolic Panel (06/15/2022 2:59 PM EST) Pathologist [facility] Sodium 143 135 - 145 mmol/L [facility] Potassium 3.9 3.3 - 5.1 mmol/L [facility] Chloride 109(H) 96 - 108 mmol/L [facility] Carbon Dioxide 24 22 - 29 mmol/L [facility] Anion Gap 14 12 - 20 [facility] Urea Nitrogen (BUN) 10 9 - 16 mg/dL [facility] Creatinine, Serum 0.95 0.5 - 1.4 mg/dL [facility] Creatinine Clr Calc Pharmacy 44.7 [facility] Comment:Provided height and weight: 152.4 cm,70.307 kg.eGFR (calculated from the MDRD study equation) and eCrCl(calculated from the Cockcroft-Gault equation) are based ondifferent parameters and may not yield comparable results.If eCrCl result is absurd, please check patient'sheight/weight. Estimated Glomerular Filt Rate 57 [facility] Comment:NOTE: For -Am erican individuals, multiply the result by 1.210.Chronic Kidney Disease: Estimated GFR < 60 mL/min/1.12a5Fbtpmq Kidney Disease: Estimated GFR < 15 mL/min/1.73m2 Glucose 201(H) 60 - 115 mg/dL [facility] Calcium 9.2 8.4 - 10.2 mg/dL [facility] Bilirubin, Total 0.9 0.0 - 1.0 mg/dL [facility] Aspartate Amino Transferase 49(H) 5 - 31 U/L [facility] Alanine Aminotransferase 50(H) 0 - 31 U/L [facility] Total Protein 7.6 6.5 - 8.0 g/dL [facility] Albumin Level 4.0 3.5 - 5.0 g/dL [facility] Alkaline Phosphatase 119(H) 39 - 117 U/L [facility] 06/15/2022 2:59 PM EST 06/15/2022 3:05 PM EST us [facility] External Provider LAB BLO OD ORDERABLES Final Result [facility] [address] [place] [address] [phone] documented in this encounter Visit Diagnoses Not on filedocumented in this encounter Care Teams Cyber Ops Planner Relationship Specialty Start Date End Date You Bedolla MD [address] [place] [address] PCP - General Internal Medicine 05/27/14 documented as of this encounter
--- OUTSIDE RECORDS SUMMARY | 2024-06-02 10:47 | XMS_ITS | Encounter Summary ---
Author Organization [facility] Address [address] [place] [address] Care Team Providers Care Filling And Stapling Machine Operator Name Role Phone You Martinez Primary Care Provider + Encounter Details Date Type Department Care Team (Late st Contact Info) Description 10/07/2020 Orders Only [facility] CT Scan [address] [place] [address] Saúl Santana MD PhD [address] [place] [address] Social History Tobacco Use Types [...] on filedocumented in this encounter Care Teams Filling And Stapling Machine Operator Relationship Specialty Start Date End Date You Martinez [address] [place] [phone] PCP - General Internal Medicine 10/06/19 documented as of this encounter
--- OUTSIDE RECORDS SUMMARY | 2024-06-02 10:47 | XMS_ITS | Encounter Summary ---
Author Organization [employer] Address [address] [place] [address] 7t [place] [address] Care Team Providers Care Bleach Boiler Puller Name Role Phone You Bedolla MD Primary Care Provide r Encounter Details Date Type Department Care Team (Late Contact Info) Description 09/28/2022 [facility] [employer] Information Management [address] [place], [place] [phone] You Bedolla MD [address] [place], [place] [phone] Social History Tobacco Use Types Packs/Day Years [...] Description 07/08/2024 2:00 PM EDT Office Visit [facility] MEDICINE [address] [place], [place] [phone] You Bedolla MD [address] [place] [address] documented as of this encounter Goals Goal Patient Goal Type Associated Problems Recent Progress Patient-Stated? Author Blood Pressure < 140/90 Blood Pressure Essential hypertension 140/84(2023 2:32 PM EST) No Charles Myrick, PharmD documented as of this encounter Visit Diagnoses Not on filedocumented in this encounter Care Teams Bleach Boiler Puller Relationship Specialty Start Date End Date You Bedolla MD [address] [place] [address] PCP - General Internal Medicine 05/27/14 documented as of this encounter
[2024-06-02 11:33] LABS: Alanine Aminotransferase 79 U/L (0-31); Albumin Level 4.1 g/dL (3.5-5.0); Alkaline Phosphatase 159 U/L (39-117); Anion Gap 13 (12-20); Aspartate Amino Transferase 87 U/L (5-31); Bilirubin Total 1.7 mg/dL (0.0-1.0); Blood Urea Nitrogen 7 mg/dL (9-16); Calcium 8.8 mg/dL (8.4-10.2); Carbon Dioxide 23 mmol/L (22-29); Chloride 109 mmol/L (96-108); Cholesterol 213 mg/dL (<200); Estimated Glomerular Filt Rate > 60; Glucose Random 146 mg/dL (60-115); HDL Cholesterol 53 mg/dL (>40); LDL Cholesterol Calculated 139 mg/dL (<100); Potassium 3.9 mmol/L (3.3-5.1); Sodium 141 mmol/L (135-145); Total Protein 8.7 g/dL (6.5-8.0); Triglycerides 109 mg/dL (<150)
[2024-06-02 11:36] LABS: Creatinine Urine 56.22 mg/dL; Microalbum/Creatinine Ratio Ur 76.4 ug/mg cr (<30)
[2024-06-05 01:28] LABS: TS Negative Control Passed; TS Panel A 0; TS Panel B 0; TS Positive Control Passed; TSpotTB Negative (Negative)
== END 2024-06-02 09:57 | disposition home or self-care (01) ==
LOC: HO.HHCL 09:56
PROVIDERS: Visit Provider Internal Medicine
DX: Z00.00 Encounter for general adult medical examination without abnormal findings (principal); I10 Essential (primary) hypertension; E11.9 Type 2 diabetes mellitus without complications
CPT/HCPCS: 36415; 80053; 80061; 82043; 82570; 86481

== ENCOUNTER 2024-06-24 09:54 | Outpatient (REF) | payer OTHER, SELFPAY ==
--- NOTE | ~2024-06-24 | MM_ITS ---
EXAMINATION: MM DIAGNOSTIC DIGITAL BREAST TOMOSYNTHESIS, LEFT Limited left breast ultrasound. CLINICAL INFORMATION: Back from screening for focal asymmetry in the upper outer left breast anterior depth. COMPARISON: Mammography: Comparison is made with available prior examinations in PACS. TECHNIQUE: Digital breast tomosynthesis is performed in both the craniocaudal and mediolateral oblique views along with computer-aided detection (CAD). Synthesized 2D images are generated from the tomosynthesis. FINDINGS: There are scattered areas of fibroglandular density (ACR BI-RADS breast composition Category b). Previously seen asymmetry in the upper/central outer breast anterior depth partially effaces on additional imaging projections but is unchanged from prior mammograms dating back to 2018. No suspicious calcifications or other abnormal findings. Targeted color Doppler ultrasound scanning in the lateral left breast from 1-5 o'clock demonstrates normal fibroglandular breast tissue. MM/MM tomosynthesis added views L IMPRESSION: No mammographic or sonographic abnormality. Focal asymmetry in the upper outer left breast anterior depth is stable dating back to 2019 and therefore benign. ASSESSMENT: BI-RADS BI-RADS 2 - Benign Findings RECOMMENDATION: 1 year F/U Results were provided to the patient at time of visit by the technologist. This patient's information was entered into a reminder system with a target due date for their next mammogram. Electronically signed by: Fernanda Hollis DO 06/24/2024 10:59 AM [facility]
--- OUTSIDE RECORDS SUMMARY | 2024-06-24 11:39 | XMS_ITS | Encounter Summary ---
Author Organization [facility] Address [address] [place] [address] Care Team Providers Care Special Shopper Name Role Phone You Martinez Primary Care Provider + Encounter Details Date Type Department Care Team (Late st Contact Info) Description 09/08/2021 Orders Only [facility] XRay [address] [place] [address] Curtis Ray [address] [place] [address] Social History Tobacco Use Types Packs/Day Years [...] on filedocumented in this encounter Care Teams Special Shopper Relationship Specialty Start Date End Date You Martinez [address] [place] [address] PCP - General Internal Medicine 10/06/19 documented as of this encounter
--- OUTSIDE RECORDS SUMMARY | 2024-06-24 11:39 | XMS_ITS | Encounter Summary ---
Author Organization [facility] Address [address] [place] [address] Care Team Providers Care Competitive Shopper Name Role Phone You Martinez Primary Care Provider + Encounter Details Date Type Department Care Team (Late st Contact Info) Description 10/06/2020 Orders Only [facility] Interventional Radiology [address] [place] [address] Massimo Salomon MD [address] [place], [place] [phone] Social History Tobacco Use Types Packs/Day Years [...] on filedocumented in this encounter Care Teams Competitive Shopper Relationship Specialty Start Date End Date You Martinez [address] [place] [phone] PCP - General Internal Medicine 10/06/19 documented as of this encounter
--- OUTSIDE RECORDS SUMMARY | 2024-06-24 11:39 | XMS_ITS | Encounter Summary ---
Author Organization [facility] Address [address] [place] [address] Care Team Providers Care Diamond Setter Name Role Phone You Martinez Primary Care Provider + Encounter Details Date Type Department Care Team (Late st Contact Info) Description 10/07/2020 Orders Only [facility] CT Scan [address] [place] [address] Saúl Santana MD PhD [address] [place] [address] Social History Tobacco Use Types [...] on filedocumented in this encounter Care Teams Diamond Setter Relationship Specialty Start Date End Date You Martinez [address] [place] [phone] PCP - General Internal Medicine 10/06/19 documented as of this encounter
--- OUTSIDE RECORDS SUMMARY | 2024-06-24 11:39 | XMS_ITS | Patient Health Record ---
Author Organization [facility] Address [address] [place] [address] Care Team Providers Care Chief Nursing Officer Name Role Phone Judith Rader MD, You Primary Care Provide r Chico Escudero Unavailable [phone] ALLERGIES No Known Allergies RESULTS Component Value Reference Range Notes Complete Blood Count Auto Di ff Reviewed date:11/23/2023 11:38:28 PM Interpretation: Performing Lab:[facility], [address] [place] [phone] Notes/Report: White Blood Count 10.2 4.8-10.8 X10*3/uL [...] INR Reviewed date:11/15/2023 07:42:47 PM Interpretation: Performing Lab:[address] [phone] Notes/Report: Prothrombin Time 13.8 11.1-13.3 SEC INTERNATIONAL [...] Panel Reviewed date:11/24/2023 07:13:21 PM Interpretation: Performing Lab:[facility], [address] [place] [phone] Notes/Report: Bilirubin Total 1.2 0.0-1.0 mg/dL Bilirubin Direct 0.3 0.0-0.5 mg/dL Aspartate Amino Transferase 56 5-31 U/L Alanine Aminotransferase 52 0-31 U/L Total Protein 8.6 6.5-8.0 g/dL Albumin Level 4.3 3.5-5.0 g/dL Alkaline Phosphatase 143 39-117 U/L Alpha Fetoprotein Reviewed date:11/24/2023 07:13:47 PM Interpretation: Performing Lab:[facility], [address] [place] [phone] Notes/Report: Alpha Fetoprotein 8.0 Reference Range: <6.1 The use of AFP as a tumor marker in females is not recommended. This test was performed using the Jerilyn Anderson chemiluminescent method. Values obtained from different assay methods cannot be used interchangeably. AFP levels, regardless of value, should not be interpreted as absolute evidence of the presence or absence of disease. THIS TEST WAS PERFORMED AT: [facility] [address] [place] [phone] LIVIER OVALLE MD Liver Fibrosis Pnl Reviewed date:11/23/2023 11:35:47 PM Interpretation: Performing Lab:[facility], [address] [place] [phone] Notes/Report: Liver Fibrosis Score 0.93 Liver Fibrosis [...] a>0.62 and a<=1.00 : A3 (severe activity) OZS-Wbucr-6-Macroglobulin 470 106-279 mg/dL FIB-Haptoglobin 40 43-212 mg/dL FIB-Apolipoprotein A1 175 101-198 mg/dL FIB-Total Bilirubin 1.1 0.2-1.2 mg/dL FIB-GGT 161 3-65 U/L FIB-ALT 46 6-29 U/L Reference ID [id number] Footnote SEE NOTE The reliability of results is dependent on compliance with the preanalytical and analytical conditions recommended by [employer]redictive. The tests have to be deferred for: [...] The performance characteristics have been determined by [employer] It has not been cleared or approved by the U.S. Food and Drug Administration. Performance characteristics refer to the analytical performance of the test. [employer]orem, the associated logo, [employer] and all associated [employer] barry are the registered trademarks of [employer]. All third democrat barry - (R) and (TM) - are the property of their respective owners. (C) 1307-8479 [employer]. All rights reserved. THIS TEST WAS PERFORMED AT: [employer] [facility] [address] [place] [address] STEVEN VELAZQUEZ MD,PHD,MANOJ REASON FOR REFERRAL No [...] malignant neoplasm of colon (Z12.11) Active confirmed 895431698 Problem History of adenomatous polyp of colon (Z86.010) Active confirmed 076369103 Problem Hypertension (I10) Active confirmed 95447274 Problem Other cirrhosis of liver (K74.69) Active confirmed 11637768 Problem Elevated liver function tests (R79.89) Active confirmed 995384544 Problem Elevated liver enzymes (R74.8) Active confirmed 053499912 Problem Fatty liver (K76.0) Active confirmed 258218417 Problem Elevated alpha-fetoprotein (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.2) Active confirmed 757802634 Problem Cirrhosis (K74.60) Active confirmed Cirrhotic (292768237) Problem 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 confirmed Serum alpha-fetoprotein level elevated (864888874) Problem Abnormal MRI, liver (R93.2) Active confirmed 514249918 Problem Liver fibrosis (K74.0) Active confirmed 71368548 Problem Diverticulosis of colon (K57.30) Active confirmed Diverticulosi s of colon (900259452) VITAL SIGNS Blood pressure diastolic 00 mm Hg 11/15/2023 Height 57.75 in 11/15/2023 Blood pressure systolic 00 mm Hg 11/15/2023 Weight 166 lbs 11/15/2023 BMI 34.99 kg/m2 11/15/2023 Encounters Encounter Location Date Provider Diagnosis [facility] [address] [place] [address] 11/15/2023 Chico Johns Cirrhosis K74.60 and Fatty liver K76.0 [facility] [address] [place] [address] 11/15/2023 Chico Johns ASSESSMENTS Encounter Date Diagnosis Assessment Notes Treatment Notes Treatment Clinical Notes 11/15/2023 Fatty liver (ICD-10 - K76.0) 11/15/2023 Cirrhosis (ICD-10 - K74.60) PLAN OF TREATMENT Pending Test Test Name Order Date CBC With Differential/Platelet 1 Prothrombin Time (PT) 01/05/2011 Sedimentation Rate-Westergren 01/05/2011 Mitochondrial (M2) Antibody 01/05/2011 MARLA Comprehensive Panel 01/05/2011 Liver Function Test (LFT) 01/05/2011 BUN 09/20/2019 BUN 11/14/2022 BUN 04/12/2020 CREATININE 09/20/2019 CREATININE 04/12/2020 LIVER PROFILE 11/15/2023 LIVER PROFILE 08/01/2016 LIVER PROFILE 08/28/2019 LIVER PROFILE 11/14/2022 LIVER PROFILE 10/03/2017 LIVER PROFILE 05/21/2020 LIVER PROFILE 05/17/2021 LIVER PROFILE 02/16/2016 LIVER PROFILE 04/12/2020 CBC w DIFF 04/12/2020 CBC w DIFF 11/15/2023 CBC w DIFF 08/28/2019 CBC w DIFF 11/14/2022 CBC w DIFF 10/03/2017 CBC w DIFF 05/17/2021 PROTHROMBIN TIME (PT, INR) 08/28/2019 PROTHROMBIN TIME (PT, INR) 10/03/2017 PROTHROMBIN TIME (PT, INR) 05/17/2021 ALPHA-FETOPROTEIN,TUMOR MARKER 0 ALPHA-FETOPROTEIN,TUMOR MARKER 4 ALPHA-FETOPROTEIN,TUMOR MARKER 3 ALPHA-FETOPROTEIN,TUMOR MARKER 0 ALPHA-FETOPROTEIN,TUMOR MARKER 8 MRI ABD W&WO CONTRAST 09/20/2019 MRI ABD W&WO CONTRAST 04/12/2020 MRI ABD W&WO CONTRAST 11/14/2022 US ABD 10/03/2017 Prothrombin Time INR 04/12/2020 Prothrombin Time INR 11/15/2023 Liver Fibrosis Pnl 11/15/2023 Future Test Test Name Order Date COLONOSCOPY 01/18/2016 UPPER GI ENDOSCOPY 05/21/2020 COLONOSCOPY 05/17/2021 Next Appt Details Provider Name:Chico Johns , 11/12/2024 01:20:00 PM, [address], [address], [place], [address], Insurance Providers Payer Name Payer Address Payer Phone Subscriber Number Group Number Insured Name Patient Relationship to Insured Coverage Start Date Coverage End Date [facility] [address] Attn Claims MARGARITA Smith [id number] JAREN BUI Self - patient is the insured MEDICAL (GENERAL) HISTORY Medical History History ICD Code Hyperlipidemia Hypertension Depression GERD Denies GA,DM,CVA,Lung disease,renal dise ase Tubular adenoma removed by [...] pylori Being followed at [facility] live r transplant clinic since 2020 in regard to her cirrhosis and questionable liver lesions. In November of [address] [facility] advised us that she is [...]
--- OUTSIDE RECORDS SUMMARY | 2024-06-24 11:39 | XMS_ITS | Encounter Summary ---
Author Organization [facility] Address [address] [place] [address] [address] [place] [address] Care Team Providers Care General Milling Superintendent Name Role Phone You Bedolla MD Primary Care Provide r Encounter Details Date Type Department Care Team (Latest Contact Info) Description 09/10/2018 Abstract [facility] CONVERSIONS Dental, Provider, DDS Social History Tobacco [...] 2:00 PM EDT Office Visit [facility] MEDICINE [address] [place] [address] You Bedolla MD [address] [place] [address] 07/17/2024 3:30 PM EDT Office Visit [facility] ADULT DENTAL [address] [place] [address] Mau Macdonald DDS [address] [place] [address] documented as of this encounter Visit Diagnoses Not on filedocumented in this encounter Care Teams General Milling Superintendent Relationship Specialty Start Date End Date You Bedolla MD [address] [place] [address] PCP - General Internal Medicine 05/27/14 documented as of this encounter
--- OUTSIDE RECORDS SUMMARY | 2024-06-24 11:39 | XMS_ITS | Encounter Summary ---
Author Organization [employer] Address [address] [place] [address] Care Team Providers Care Client Evaluator Name Role Phone You Bedolla MD Primary Care Provide r Reason for Visit * Reason Comments Med Refill Encounter Details Date Type Department Care Team ([facility] st Contact Info) Description 06/16/2024 Refill [facility] [address] [place] [address] You Bedolla MD [address] [place] [address] Low back pain at multiple sites Social [...] encounter Miscellaneous Notes * Telephone Encounter - Kadi Olivares RN - 06/16/2024 2:28 PM EST Pt cancelled last chronic pain group on 03/04/24. TC to to via S ID# [id number] to r/s or schedule CSTNV, no answer. Lvm for pt to c/b. documented in this encounter Plan of Treatment Upcoming Encounters Date Type Department Care Team (Late st Contact Info) Description 07/08/2024 2:00 PM EDT Office Visit [facility] [address] [place] [address] You Bedolla MD [address] [place] [address] 07/17/2024 3:30 PM EDT Office Visit [facility] [address] [place] [address] Mau Macdonald DDS [address] [place] [address] documented as of this encounter Goals Goal [...] documented as of this encounter Care Teams Client Evaluator Relationship Specialty Start Date End Date You Bedolla MD [address] [place] [address] PCP - General Internal Medicine 05/27/14 documented as of this encounter
--- OUTSIDE RECORDS SUMMARY | 2024-06-24 11:39 | XMS_ITS | Referral Summary ---
Author Organization [facility] Address [address] [place] [address] Care Team Providers Care Audiovisual Technician Name Role Phone You Martinez Primary Care [...] Date Cirrhosis of liver 07/23/2020 1 Immunizations Immunization Administration Dates Next Due Covid-19 Vaccine, J&J, [...] Not on file Procedures * Due to [place] [employer] law, this organization might not be sharing [...] to Health Maintenance Results * Due to [place] [employer] law, this organization might not be sharing negative HIV tests. * Hepatitis C Antibody w/Reflex to HCV RNA, Quantitative PCR (05/02/2022 4:55 PM EST) Hepatitis C Antibody NON-REACT LOUISE NON-REACT LOUISE 05/03/2022 12:16 AM EST [facility] Signal To Cut-Off <0.02 <1.00 05/03/2022 12:16 AM EST [facility] Comment: HCV antibody was non-reactive. There is no laboratory evidence of HCV infection. In most cases, no further action is required. However, if recent HCV exposure is suspected, a test for HCV RNA (test code 58270) is suggested. For additional information please refer to http://education.[employer]/faq/CYV53r2 (This link is being provided for informational/ educational purposes only.) Blood Structure of peripheral vein / Unknown Venipuncture / Unknown 05/02/2022 4:55 PM EST 05/02/2022 5:07 PM EST Narrative [facility] - 05/03/2022 12:16 AM EST [facility] Received Date: Megan Ulloa MD LAB BLOOD ORDERABLES Final Resul t [facility] [place] [address], [address] [place] [address], [place] [phone] [place] [facility] [address], [address] [place] [address], [place] [phone] * CT CHEST W CONTRAST (12/03/2020 11:40 [...] obtain the completed interpretation. ? Workstation ID: [id number] Narrative 12/07/2020 8:[address] CHEST [...] chest wall appear normal. Resulting Agency Comment [id number] Procedure Note Daisy Damon MD - 12/07/2020 [...] possible to obtain thecompleted interpretation. Workstation ID: [id number] Megan Ulloa MD IMG CT PROCEDURES Final Result from Last 3 Months or Most Recently Relevant to Health Maintenance Insurance [facility]ICARE [facility] MEDICARE [facility] Advance Directives Documents on File Type Date Recorded Patient Inletter Expl [facility] Care Proxy 12/15/2020 6:08 PM 12-03 Care Teams Audiovisual Technician Relationship Specialty Start Date End Date You Martinez [address] [place] [id number] PCP - General Internal Medicine 10/06/19
--- OUTSIDE RECORDS SUMMARY | 2024-06-24 11:39 | XMS_ITS | Encounter Summary ---
Author Organization [email or web address] Address [address] [place] [address] [address] [place] [address] Care Team Providers Care Skip Pit Worker Name Role Phone You Bedolla MD Primary Care Provide r Encounter Details Date Type Department Care Team (Latest Contact Info) Description 09/02/2018 Abstract [facility] CONVERSIONS Dental, Provider, DDS Social History [...] Description 07/08/2024 2:00 PM EDT Office Visit [facility] MEDICINE [address] [place] [address] You Bedolla MD [address] [place] [address] 07/17/2024 3:30 PM EDT Office Visit [facility] ADULT DENTAL [address] [place] [address] Mau Macdonald DDS [address] [place] [address] documented as of this encounter Visit Diagnoses Not on filedocumented in this encounter Care Teams Skip Pit Worker Relationship Specialty Start Date End Date You Bedolla MD [address] [place] [phone] PCP - General Internal Medicine 05/27/14 documented as of this encounter
--- OUTSIDE RECORDS SUMMARY | 2024-06-24 11:39 | XMS_ITS | Encounter Summary ---
Author Organization [employer] Address [address] [facility] [address] [place] [address] Care Team Providers Care Telemarketing Agent Name Role Phone You Bedolla MD Primary Care Provide r Encounter Details Date Type Department Care Team ([facility] st Contact Info) Description 06/02/2024 Orders Only [facility] MEDICINE [address] [place] [address] Yuo Bedolla MD [address] [place] [address] Social History Tobacco Use Types Packs/Day Years [...] Description 07/08/2024 2:00 PM EDT Office Visit [facility] MEDICINE [address] [place] [address] You Bedolla MD [address] [place] [address] 07/17/2024 3:30 PM EDT Office Visit [facility] ADULT DENTAL [address] [place] [address] Mau Macdonald DDS [address] [place] [address] documented as of this encounter Goals Goal Patient Goal Type Associated Problems Recent Progress Patient-Stated? Author Blood Pressure < 140/90 Blood Pressure Essential hypertension 140/84(2023 2:32 PM EST) No Charles Myrick, PercyD documented as of this encounter Procedures Procedure Name Priority Date/Time Associated Diagnosis Comments BI US BREAST LIMITED LEFT Routine 06/24/2024 11:00 AM EST BI MAMMOGRAM DIAGNOSTIC TOMOSYNTHESIS ADDED VIEW LEFT Routine 06/24/2024 10:00 AM EST T-SPOT(R).TB Routine 06/02/2024 9:58 AM EST documented in this encounter Results * BI US Breast Limited Left (06/24/2024 11:00 AM EST) Anatomical Region Laterality Modality Breast Left Ultrasound 06/24/2024 11:0 0 AM EST Narrative 06/24/2024 11:03 AM EST ? [facility] ? [address] ?[place], [place] [address] ? Ultrasound Report ? Signed ? Patient: McAngella ?MR#: [id number] ?? 12 ? : 1945 ?Acct:[id number] ? Age/Sex: 79 / F ?ADM Date: 06/24/24 ? Loc: HO.MAMMO ? Attending Dr: You Martinez MD ? Ordering Physician: You Martinez MD ?? Date of Service: 06/24/24 ?? Procedure(s): US breast LT limited mamm only ?? Accession Number(s): [id number] ? cc: You Martinez MD ? EXAMINATION: ?? MM DIAGNOSTIC DIGITAL BREAST TOMOSYNTHESIS, LEFT ?? Limited left breast ultrasound. ? CLINICAL INFORMATION: ? Back from screening for focal asymmetry in the upper outer left breast ?? anterior depth. ? COMPARISON: ?? Mammography: Comparison is made with available prior examinations in ?? PACS. ? TECHNIQUE: ?? Digital breast tomosynthesis is performed in both the craniocaudal and ?? mediolateral oblique views along with computer-aided detection (CAD). ?? Synthesized 2D images are generated from the tomosynthesis. ? FINDINGS: ?? There are scattered areas of fibroglandular density (ACR BI-RADS breast ?? composition Category b). ?? Previously seen asymmetry in the upper/central outer breast anterior ?? depth partially effaces on additional imaging projections but is ?? unchanged from prior mammograms dating back to 2018. ?? No suspicious calcifications or other abnormal findings. ? Targeted color Doppler ultrasound scanning in the lateral left breast ?? from 1-5 o'clock demonstrates normal fibroglandular breast tissue. ? US/US breast LT limited mamm only ?? IMPRESSION: ?? No mammographic or sonographic abnormality. Focal asymmetry in the ?? upper outer left breast anterior depth is stable dating back to 2019 ?? and therefore benign. ? ASSESSMENT: ? BI-RADS BI-RADS 2 - Benign Findings ? RECOMMENDATION: ?? 1 year F/U ? Results were provided to the patient at time of visit by the ?? technologist. ? This patient's information was entered into a reminder system with a ?? target due date for their next mammogram. ? Electronically signed by: ??Fernanda Hollis DO ??06/24/2024 10:59 AM EST ? Dictated By: ?Fernanda Hollis DO ? Signed By: ?<Electronically signed by Fernanda Hollis, DO in OV> ? 06/24/24 1059 ? DD/ 1100 ? TD/TT: ? Tv Production Assistant: ? Procedure Note Gregorysofiacarl, Image - 06/24/2024 [facility] [address] [place] [address] Ultrasound Report Signed Patient: Vivienne Bentley AMR#: [id number] [birth year] : 1945cct:[id number] Age/Sex: 79 / FADM Date: 06/24/24 Loc: HO.MAMMO Attending Dr: You Martinez MD Ordering Physician: You Martinez MD Date of Service: 06/24/24 Procedure(s): US breast LT limited mamm only Accession Number(s): [id number] cc: You Martinez MD EXAMINATION: MM DIAGNOSTIC DIGITAL BREAST TOMOSYNTHESIS, LEFT Limited left breast ultrasound. CLINICAL INFORMATION: Back from screening for focal asymmetry in the upper outer left breast anterior depth. COMPARISON: Mammography: Comparison is made with available prior examinations in PACS. TECHNIQUE: Digital breast tomosynthesis is performed in both the craniocaudal and mediolateral oblique views along with computer-aided detection (CAD). Synthesized 2D images are generated from the tomosynthesis. FINDINGS: There are scattered areas of fibroglandular density (ACR BI-RADS breast composition Category b). Previously seen asymmetry in the upper/central outer breast anterior depth partially effaces on additional imaging projections but is unchanged from prior mammograms dating back to 2018. No suspicious calcifications or other abnormal findings. Targeted color Doppler ultrasound scanning in the lateral left breast from 1-5 o'clock demonstrates normal fibroglandular breast tissue. US/US breast LT limited mamm only IMPRESSION: No mammographic or sonographic abnormality. Focal asymmetry in the upper outer left breast anterior depth is stable dating back to 2019 and therefore benign. ASSESSMENT: BI-RADS BI-RADS 2 - Benign Findings RECOMMENDATION: 1 year F/U Results were provided to the patient at time of visit by the technologist. This patient's information was entered into a reminder system with a target due date for their next mammogram. Electronically signed by: Fernanda Hollis DO 06/24/2024 10:59 AM EST Dictated By: Fernanda Hollis DO Signed By: <Electronically signed by Fernanda Hollis DO in OV> 06/24/24 1059 DD/ 1100 TD/TT: Tv Production Assistant: us You Rader MD IMG US PROCEDURES Fin al Result * BI Mammogram Diagnostic Tomosynthesis added left (06/24/2024 10:00 AM EST) Anatomical Region Laterality Modality Breast Left Mammography 06/24/2024 10:0 0 AM EST Narrative 06/24/2024 11:03 AM EST ? [facility] ? [address] ?[place] [address] ? Mammography Report ? Signed ? Patient: McVivienne ?MR#: [id number] ?? 12 ? : 1945 ?Acct:[id number] ? Age/Sex: 79 / F ?ADM Date: 03/04/25 ? Loc: HO.MAMMO ? Attending Dr: You Martinez MD ? Ordering Physician: You Martinez MD ?Resu ?? lts: 2Benign Findings ? Date of Service: 06/24/24 ?Follow Up: 1 Year From Orig ?? inal Mammogram ? Procedure(s): MM tomosynthesis added views L ?? Accession Number(s): [id number] ? cc: You Martinez MD ? EXAMINATION: ?? MM DIAGNOSTIC DIGITAL BREAST TOMOSYNTHESIS, LEFT ?? Limited left breast ultrasound. ? CLINICAL INFORMATION: ? Back from screening for focal asymmetry in the upper outer left breast ?? anterior depth. ? COMPARISON: ?? Mammography: Comparison is made with available prior examinations in ?? PACS. ? TECHNIQUE: ?? Digital breast tomosynthesis is performed in both the craniocaudal and ?? mediolateral oblique views along with computer-aided detection (CAD). ?? Synthesized 2D images are generated from the tomosynthesis. ? FINDINGS: ?? There are scattered areas of fibroglandular density (ACR BI-RADS breast ?? composition Category b). ?? Previously seen asymmetry in the upper/central outer breast anterior ?? depth partially effaces on additional imaging projections but is ?? unchanged from prior mammograms dating back to 2018. ?? No suspicious calcifications or other abnormal findings. ? Targeted color Doppler ultrasound scanning in the lateral left breast ?? from 1-5 o'clock demonstrates normal fibroglandular breast tissue. ? MM/MM tomosynthesis added views L ?? IMPRESSION: ?? No mammographic or sonographic abnormality. Focal asymmetry in the ?? upper outer left breast anterior depth is stable dating back to 2019 ?? and therefore benign. ? ASSESSMENT: ? BI-RADS BI-RADS 2 - Benign Findings ? RECOMMENDATION: ?? 1 year F/U ? Results were provided to the patient at time of visit by the ?? technologist. ? This patient's information was entered into a reminder system with a ?? target due date for their next mammogram. ? Electronically signed by: ??Fernanda Hollis DO ??06/24/2024 10:59 AM EST ? Dictated By: ?Fernanda Hollis DO ? Signed By: ?<Electronically signed by Fernanda Hollis, DO in OV> ? 06/24/249 ? DD/ 1000 ? TD/TT: 06/24/24 1038 ? Tv Production Assistant: ? Procedure Note Donkarenter, Image - 06/24/2024 [facility] [address] [place], [place] [address] Mammography Report Signed Patient: Vivienne Bentley AMR#: [id number] 12 : 1945cct:[id number] Age/Sex: 79 / FADM Date: 06/24/24 Loc: HO.MAMMO Attending Dr: You Martinez MD Ordering Physician: You Martinez MDResu lts: 2Benign Findings Date of Service: 06/24/24Follow Up: 1 Year From Orig inal Mammogram Procedure(s): MM tomosynthesis added views L Accession Number(s): [id number] cc: You Martinez MD EXAMINATION: MM DIAGNOSTIC DIGITAL BREAST TOMOSYNTHESIS, LEFT Limited left breast ultrasound. CLINICAL INFORMATION: Back from screening for focal asymmetry in the upper outer left breast anterior depth. COMPARISON: Mammography: Comparison is made with available prior examinations in PACS. TECHNIQUE: Digital breast tomosynthesis is performed in both the craniocaudal and mediolateral oblique views along with computer-aided detection (CAD). Synthesized 2D images are generated from the tomosynthesis. FINDINGS: There are scattered areas of fibroglandular density (ACR BI-RADS breast composition Category b). Previously seen asymmetry in the upper/central outer breast anterior depth partially effaces on additional imaging projections but is unchanged from prior mammograms dating back to 2018. No suspicious calcifications or other abnormal findings. Targeted color Doppler ultrasound scanning in the lateral left breast from 1-5 o'clock demonstrates normal fibroglandular breast tissue. MM/MM tomosynthesis added views L IMPRESSION: No mammographic or sonographic abnormality. Focal asymmetry in the upper outer left breast anterior depth is stable dating back to 2019 and therefore benign. ASSESSMENT: BI-RADS BI-RADS 2 - Benign Findings RECOMMENDATION: 1 year F/U Results were provided to the patient at time of visit by the technologist. This patient's information was entered into a reminder system with a target due date for their next mammogram. Electronically signed by: Fernanda Hollis DO 06/24/2024 10:59 AM EST Dictated By: Fernanda Hollis DO Signed By: <Electronically signed by Fernanda Hollis DO in OV> 06/24/24 1059 DD/ 1000 TD/TT: 06/24/24 1038 Tv Production Assistant: us You Rader MD IMG BI PROCEDURES Fin al Result * T-SPOT??.TB (06/02/2024 9:58 AM EST) T Spot TB Negative Negative [facility] Comment:A negative test resu lt does not exclude the possibilityof exposure to or infection with Mycobacteriumtuberculosis (M. tuberculosis). Patients with recentexposure to TB infected individuals exhibiting anegative T-SPOT.TB result should be considered forretesting within 6 weeks or if other relevant clinicalsymptoms indicate. Results from T-SPOT.TB testing mustbe used in conjunction with each individual'sepidemiological history, current medical status,and results of other diagnostic evaluations.The T-SPOT.TB test is qualitative and results arereported as positive, borderline, or negative, giventhat the test controls perform as expected. In linewith the Centers for Disease Control and Prevention's2010 recommendation to report quantitative measurementsalongside the qualitative result, the laboratoryprovides spot counts for informational purposes only.The T-SPOT.TB test should not be interpreted as aquantitative test. TS PANEL A 0 [facility] TS PANEL B 0 [facility] Negative Control Passed [facility] Positive Control Passed [facility] Comment:For additional infor dedra, please refer tohttp://education.[employer]/faq/GQL912(This link is being provided for informational/educational purposes only.)THIS TEST WAS PERFORMED AT:[employer] [id number] [place] [address]GLWIRFH W. MASON,MD,PHD 06/02/2024 9:58 AM EST 06/02/2024 11:06 AM EST us You Rader MD LAB BLOOD ORDERABLES Final Result [facility] [address] [place] [address] [phone] documented in this encounter Visit Diagnoses Not on filedocumented in this encounter Additional Health Concerns Assessment Noted Time PHQ-9 Depression Total Score: 13 024 1:37 PM EST documented as of this encounter Care Teams Telemarketing Agent Relationship Specialty Start Date End Date You Bedolla MD [address] [place] [address] PCP - General Internal Medicine 05/27/14 documented as of this encounter
--- OUTSIDE RECORDS SUMMARY | 2024-06-24 11:39 | XMS_ITS | Clinical Summary ---
Author Organization [facility] Address [address] [place] [address] Care Team Providers Care Board Stacker Name Role Phone You Martinez Primary Care [...] patients) Completed 05/16/2023 Procedures * Due to [place] state law, this organization might not be [...] Health Maintenance Results * Due to [place] state law, this organization might not be sharing negative HIV tests. * Hepatitis C Antibody w/Reflex to HCV RNA, Quantitative PCR (05/02/2022 4:55 PM EST) Hepatitis C Antibody NON-REACT LOUISE NON-REACT LOUISE 05/03/2022 12:16 AM EST [facility] Signal To Cut-Off <0.02 <1.00 05/03/2022 12:16 AM EST [facility] Comment: HCV antibody was non-reactive. There is no laboratory evidence of HCV infection. In most cases, no further action is required. However, if recent HCV exposure is suspected, a test for HCV RNA (test code 73821) is suggested. For additional information please refer to http://education.[employer]/faq/HBM24c3 (This link is being provided for informational/ educational purposes only.) Blood Structure of peripheral vein / Unknown Venipuncture / Unknown 05/02/2022 4:55 PM EST 05/02/2022 5:07 PM EST Narrative [facility] - 05/03/2022 12:16 AM EST [facility] Received Date: us Megan Ulloa MD LAB BLOOD ORDERABLES Final Resul t [facility] [address], [place] [address], [place] [phone] [employer] [facility] [address], [place] [address], [place] [phone] * CT CHEST W CONTRAST (12/03/2020 11:40 [...] obtain the completed interpretation. ? Workstation ID: [id number] Narrative 12/07/2020 8:[address] CHEST [...] chest wall appear normal. Resulting Agency Comment [id number] Procedure Note Daisy Damon MD - 12/07/2020 [...] possible to obtain thecompleted interpretation. 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
--- OUTSIDE RECORDS SUMMARY | 2024-06-24 11:39 | XMS_ITS | Encounter Summary ---
Author Organization [employer] Address [address] [place] [address] Care Team Providers Care Foreman Or Supervisor And Operator Name Role Phone You Bedolla MD Primary Care Provide r Reason for Visit * Reason Comments Med Refill Encounter Details Date Type Department Care Team ([facility] st Contact Info) Description 06/04/2024 Refill [facility] [address] [place] [address] You Bedolla MD [address] [place] [address] Low back pain at multiple sites Social [...] Description 07/08/2024 2:00 PM EDT Office Visit [facility] MEDICINE [address] [place] [address] You Bedolla MD [address] [place] [address] 07/17/2024 3:30 PM EDT Office Visit [facility] ADULT DENTAL [address] [place] [address] Mau Macdonald DDS [address] [place] [address] documented as of this encounter Goals Goal [...] documented as of this encounter Care Teams Foreman Or Supervisor And Operator Relationship Specialty Start Date End Date You Bedolla MD [address] [place] [address] PCP - General Internal Medicine 05/27/14 documented as of this encounter
--- OUTSIDE RECORDS SUMMARY | 2024-06-24 11:39 | XMS_ITS | Clinical Summary ---
Author Organization [employer] Address [address] [facility] [address] [place] [address] Care Team Providers Care Tableau Architect Name Role Phone You Bedolla MD Primary Care Provide r Allergies Active Allergy Reactions Criticality Noted Date Comments Yash Inhibitors Cough 04/20/2010 Medications OneTouch Ultra test stripIndications :Type 2 diabetes mellitus without complications ([facility]) TEST BLOOD SUGAR ONCE DAILY DIRECTED [...] 07/20/19 23 Active Lancets (OneTouch Delica Plus [id number]) miscIndications: Type 2 diabetes mellitus without complications ([facility]) TEST BLOOD SUGAR ONCE DAILY 100 [...] tabletIndication s:Low back pain at multiple sites TAKE 1 TABLET BY MOUTH EVERY 8 HOURS NEEDED FOR SEVERE PAIN 60 tablet 06/17/19 25 Active oxyCODONE (Roxicodone) 5 MG immediate release tabletIndication s:Low back pain at multiple sites Take 1 tablet (5 mg) by mouth every 8 (eight) hours if needed for severe pain. 60 tablet 05/15/19 25 025 Discontinued Active Problems Patient Care Coordination No te Formatting of this note migh t be different from the original. C3/CM Lorri Arguello RN Problem Noted Date Diagnosed Date Other emphysema 04/08/2024 Assessment & Plan (04/08/2024 2:26 PM EST): Under the care of Dr. 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 [...] for a f/u Under the care of [facility] Liver transplant Ctr ( Dr. [...] in size. Pt was referred at the [facility] Liver clinic. She was evaluated for Liver transplant due to potentialy HCC due to Cirrhosis associated with CHAR[place] Dr Johns recommended to DC Atorvastatin and Meloxicam, I contacted [facility] to male sure both meds are taken out of her med boxes. She had her colonoscopy 07/01/2021 Dr Johns recommended NO further colonoscopies Pt was last seen by Dr Ulloa Liver specialist at [facility] 08/01/2022 He does not think she needs to be in the liver transplant and they neftaly follow her with scans every 6 months and will treat accordingly if needed if she was to develop HCC Assessment & Plan (09/07/2022 2:15 PM EDT): Here for a f/u Under the care of [facility] Liver transplant [facility] ( Dr. [...] in size. Pt was referred at the [facility] Liver clinic. She was evaluated for Liver transplant due to potentialy HCC due to Cirrhosis associated with [place] Dr Johns recommended to DC Atorvastatin and Meloxicam, I contacted [facility] to male sure both meds are taken out of her med boxes. She had her colonoscopy 07/01/2021 Dr Johns recommended NO further colonoscopies Pt was last seen by Dr Ulloa Liver specialist at [facility] 08/01/2022 He does not think she needs to be in the liver transplant and they neftaly follow her with scans every 6 months and will treat accordingly if needed if she was to develop HCC Assessment & Plan (07/13/2022 9:52 AM EDT): Here for a f/u Under the care of [facility] Liver transplant [facility] ( Dr. [...] in size. Pt was referred at the [facility] Liver clinic. She is currently undergoing evaluation for Liver transplant due to potentialy HCC due to Cirrhosis associated with [place] Dr Johns recommended to DC Atorvastatin and Meloxicam, I contacted [facility] to male sure both meds are taken out of her med boxes. She had her colonoscopy 07/01/2021 Dr Johns recommended NO further colonoscopies pt has an upcoming appointment at [facility] 05/02/2021 Assessment & Plan (04/20/2022 3:10 PM EST): Here for a f/u Under the care of [facility] Liver transplant [facility] ( Dr. [...] in size. Pt was referred at the [facility] Liver clinic. She was last seen last 12/03/2020 and is currently undergoing evaluation for Liver transplant due to potentialy HCC due to Cirrhosis associated with [place] Dr Johns recommended to DC Atorvastatin and Meloxicam, I contacted [facility] to male sure both meds are taken out of her med boxes. She had her colonoscopy 07/01/2021 Dr Johns recommended NO further colonoscopies pt has an upcoming appointment at [facility] 05/02/2021 Diverticulosis of colon 04/20/2022 [...] statins Previous visit she told me her patient portal concierge asked her to stop one medication, I [...] statins Previous visit she told me her patient portal concierge asked her to stop one medication, I [...] statins Previous visit she told me her patient portal concierge asked her to stop one medication, I [...] statins Previous visit she told me her patient portal concierge asked her to stop one medication, I [...] Encounters Date Type Department Care Team Description 06/16/2024 Refill [facility] CHC MED & PEDS [address] [place] [address] You Bedolla MD Low back pain at multiple sites 06/04/2024 Refill [facility] CHC MED & PEDS [address] [place] [address] You Bedolla MD Low back pain at multiple sites 06/02/2024 Orders Only [facility] MEDICINE [address] [place] [address] You Bedolla MD 05/14/2024 Refill [facility] CHC MED & PEDS [address] [place] [address] You Bedolla MD Low back pain at multiple sites 05/05/2024 Refill [facility] MEDICINE [address] [place] [address] You Bedolla MD Osteoporosis, unspecified osteoporosis type, unspecified pathological fracture presence 04/29/2024 Telephone [facility] MEDICINE [address] [place] [address] You Bedolla MD DME L&[facility] 04/21/2024 Telephone [facility] [address] [facility] [place] [address] Nellie Ortez MA DME from L&C 04/17/2024 Telephone [facility] MED[facility]INE [address] [facility] [place] [address] You Bedolla MD Durable Medical Equipment 04/15/2024 Telephone [facility] MEDICINE [address] [place] [address] Nellie Ortez MA DME from L&C 04/08/2024 2:15 PM EST Office Visit [facility] [address] [facility] [place] [address] You Bedolla MD Other emphysema (CMS/HCC) (Primary Dx); Type 2 diabetes mellitus without complication, without long-term current use of insulin (CMS/HCC); Essential hypertension; Mixed hyperlipidemia; Preventative health care; Breast cancer screening, high risk patient; Low back pain at multiple sites; Tinea cruris; Breast cancer screening by mammogram 04/08/2024 Travel 04/02/2024 Telephone [facility] MEDICINE [address] [facility] [place] [address] You Bedolla MD Chart Prep from Last 3 Months Immunizations Name Administration [...] 2:00 PM EDT Office Visit [facility] MEDICINE [address] [place] [address] You Bedolla MD [address] [place] [address] 07/17/2024 3:30 PM EDT Office Visit [facility] ADULT DENTAL [address] [place] [address] Mau Macdonald DDS [address] [place] [address] Health Maintenance Due Date Last Done Comments Dental X-Ray: Bitewings 1945 Diabetes: Foot Exam 1957 Eye Exam 1957 Hepatitis A Vaccines (1 of 2 - Risk 2-dose series) 1966 Dental Oral Exam 08/17/2023 02/14/2023 Depression Monitoring (PHQ-9) 11/13/2023 05/15/2023, 05/15/2023 COVID-19 Vaccine ( season) 2023 02/15/2022, 09/12/2021, 03/08/2021, Additional history exists SDOH Screening 05/04/2024 05/04/2023 Depression Screening 05/15/2024 05/15/2023, 05/15/19 24 Dental Prophylaxis 05/25/2024 11/22/2023, 1 , 01/26/2022 Diagnostic Breast Imaging 07/25/2024 06/24/2024, Diabetes: Hemoglobin A1C 10/07/2024 024, 05/15/2023, 01/18/2023, Additional history exists Alcohol/Substance Use Screening 04/08/2025 04/08/2024 Tobacco Screening 04/08/2025 04/08/2024 Diabetes: Urine Protein Screening 06/02/2025 06/02/2024, 12/28/2021, 11/03/2020, Additional history exists Lipid Panel 06/02/2025 06/02/2024, 04/24, 01/19/2023, Additional history exists Dental X-Ray: Full Mouth 01/27/2026 01/26/2023 DTaP/Tdap/Td [...] EST T-SPOT(R).TB Routine 06/02/2024 9:58 AM EST COMPREHENSIVE METABOLIC PANEL Routine 06/02/2024 9:58 AM EST Type 2 diabetes mellitus without complication, without long-term current use of insulin (CMS/HCC) Essential hypertension LIPID PANEL, STANDARD Routine 06/02/2024 9:58 AM EST Essential hypertension ALBUMIN, RANDOM URINE W/CREATININE Routine 06/02/2024 9:58 AM EST Type 2 diabetes mellitus without complication, without long-term current use of insulin (CMS/HCC) BI MAMMOGRAM SCREENING TOMOSYNTHESIS BILATERAL Routine 05/16/2024 1:45 PM EST Breast cancer screening by mammogram POCT GLYCATED HEMOGLOBIN, TOTAL Routine 04/08/2024 2:33 PM EST Type 2 diabetes mellitus without complication, without long-term current use of insulin (CMS/HCC) POCT GLUCOSE Routine 04/08/2024 2:21 PM EST Type 2 diabetes mellitus without complication, without long-term current use of insulin (CMS/HCC) PROPHYLAXIS - ADULT Routine 11/22/2023 1 :00 PM EDT Dental plaque PERIODIC ORAL EVALUATION - ESTABLISHED PATIENT Routine 02/14/2023 1:00 PM EDT HEPATITIS C AB W/REFL TO HCV RNA, QN, PCR Routine 05/05/2022 9:23 AM EST Non-alcoholic cirrhosis (CMS/HCC) from Last 3 Months or Most Recently Relevant to Health Maintenance Results * BI US Breast Limited Left (06/24/2024 11:00 AM EST) Anatomical Region Laterality Modality Breast Left Ultrasound 06/24/2024 11:0 0 AM EST Narrative 06/24/2024 11:03 AM EST ? [facility] ? [address] ?[place] [address] ? Ultrasound Report ? Signed ? Patient: Vivienne Bentley ?MR#: [id number] ?? 12 ? : 1945 ?Acct:[id number] ? Age/Sex: 79 / F ?ADM Date: 06/24/24 ? Loc: HO.MAMMO ? Attending Dr: You Martinez MD ? Ordering Physician: You Martinez MD ?? Date of Service: 06/24/24 ?? Procedure(s): US breast LT limited mamm only ?? Accession Number(s): [id number] ? cc: You Martinez MD ? EXAMINATION: [...] 1059 ? DD/ 1100 ? TD/TT: ? Principal Scientist: ? Procedure Note Pedro, Image - 06/24/2024 [facility] [address] [place], [place] [address] Ultrasound Report Signed Patient: Vivienne Bentley AMR#: [id number] 12 : 1945cct:[id number] Age/Sex: 79 / FADM Date: 06/24/24 Loc: JESIKA Attending Dr: You Martinez MD Ordering Physician: You Martinez MD Date of Service: 06/24/24 Procedure(s): US breast LT limited mamm only Accession Number(s): [id number] cc: You Martinez MD EXAMINATION: MM DIAGNOSTIC [...] in OV> 06/24/24 1059 DD/ 1100 TD/TT: Principal Scientist: You Rader MD IMG US PROCEDURES Fin al Result * BI Mammogram Diagnostic Tomosynthesis added left (06/24/2024 10:00 AM EST) Anatomical Region Laterality Modality Breast Left Mammography 06/24/2024 10:0 0 AM EST Narrative 06/24/2024 11:03 AM EST ? [facility] ? [address] ?[place] [address] ? Mammography Report ? Signed ? Patient: Mc,Angella ?MR#: [id number] ?? 12 ? : 1945 ?Acct:[id number] ? Age/Sex: 79 / F ?ADM Date: 03/04/25 ? Loc: HO.MAMMO ? Attending Dr: You Martinez MD ? Ordering Physician: You Martinez MD ?Resu ?? lts: 2Benign Findings ? Date of Service: 06/24/24 ?Follow Up: 1 Year From Orig ?? inal Mammogram ? Procedure(s): MM tomosynthesis added views L ?? Accession Number(s): [id number] ? cc: You Martinez MD ? EXAMINATION: [...] in OV> ? 06/24/24 1059 ? DD/ 1000 ? TD/TT: 06/24/24 1038 ? Principal Scientist: ? Procedure Note Oh Vasquez - 06/24/2024 [facility] [address] [place] [address] Mammography Report Signed Patient: Vivienne Bentley AMR#: [id number] [birth year] : 1945cct:[id number] Age/Sex: 79 / FADM Date: 06/24/24 Loc: HO.MAMMO Attending Dr: You Martinez MD Ordering Physician: You Martinez MDResu lts: 2Benign Findings Date of Service: 06/24/24Follow Up: 1 Year From Orig inal Mammogram Procedure(s): MM tomosynthesis added views L Accession Number(s): [id number] cc: You Martinez MD EXAMINATION: MM DIAGNOSTIC [...] their next mammogram. Electronically signed by: Fernanda Holils DO 06/24/2024 10:59 AM EST Dictated By: Fernanda Hollis DO Signed By: <Electronically signed by Fernanda Hollis DO in OV> 06/24/24 1059 DD/ 1000 TD/TT: 06/24/24 1038 Principal Scientist: us You Rader MD IMG BI PROCEDURES Fin al Result * T-SPOT??.TB (06/02/2024 9:58 AM EST) T Spot TB Negative Negative [facility] Comment:A negative test resu lt does [...] as aquantitative test. TS PANEL A 0 [facility] TS PANEL B 0 [facility] Negative Control Passed [facility] Positive Control Passed [facility] Comment:For additional infor dedra, please refer tohttp://education.[employer]/faq/LGV966(This link is being provided for informational/educational purposes only.)THIS TEST WAS PERFORMED AT:[employer] [id number] [place] [address]APZNXNZ W. MASON,MD,PHD 06/02/2024 9:58 AM EST 06/02/2024 11:06 AM EST You Rader MD LAB BLOOD ORDERABLES Final Result Performing Organization Address City/[facility] Co de Phone Number [facility] [address] [place] [address] [phone] * (ABNORMAL) Albumin, Random Urine W/Creatinine (06/02/2024 9:58 AM EST) Creatinine, Urine 56.22 mg/dL [facility] Microalbumin Urine 43.0 mg/L [facility] Microalbum Creatinine Ratio Ur 76.4(H) <30 ug/mg cr [facility] Comment:Albumin/Creatinine R atio Reference Ranges: Normal: < 30 ug/mg creatinine Microalbuminuria: 30 - 300 ug/mg creatinineClinical Albuminuria: > 300 ug/mg creatinine Urine (Urine, Random) 06/02/2024 9:58 AM EST 06/02/2024 11:02 AM EST You Rader MD LAB URINE ORDERABLES Final Result Performing Organization Address City/[facility]/ZIP Co de Phone Number [facility] [address] [place] [address] [phone] * (ABNORMAL) Lipid Panel, Standard (06/02/2024 9:58 AM EST) Triglycerides 109 <150 mg/dL [facility] Comment:Desirable Triglyceri de: less than 150 mg/dLBorderline High Triglyceride 150-199 mg/dLHigh Triglyceride: 200-499 mg/dLVery High Triglyceride: greater than or equal to 5OO mg/dL Cholesterol 213(H) <200 mg/dL [facility] Comment:Desirable Cholestero l: less than 200 mg/dLBorderline High Cholesterol: 200-239 mg/dLHigh Cholesterol: greater than 239 mg/dL LDL Cholesterol Calculated 139(H) <100 mg/dL [facility] Comment:Desirable LDL: less than 100 mg/dLNear Optimal/Above Optimal LDL: 110- 129 mg/dLBorderline High LDL: 130-159 mg/dLHigh LDL: 160-189 mg/dLVery High LDL: greater than or equal to 190 mg/dL HDL Cholesterol 53 >40 mg/dL [facility] Comment:Desirable HDL: great er than 40 mg/dL Note: This HDL assay may give artificially low results in patients with liver disease. Blood Venous blood specimen / Unknown 06/02/2024 9:58 AM EST 06/02/2024 11:06 AM EST You Rader MD LAB BLOOD ORDERABLES Final Result [facility] [address] [place] [address] [phone] * (ABNORMAL) Comprehensive Metabolic Panel (06/02/2024 9:58 AM EST) Sodium 141 135 - 145 mmol/L [facility] Potassium 3.9 3.3 - 5.1 mmol/L [facility] Chloride 109(H) 96 - 108 mmol/L [facility] Carbon Dioxide 23 22 - 29 mmol/L [facility] Anion Gap 13 12 - 20 [facility] Urea Nitrogen (BUN) 7(L) 9 - 16 mg/dL [facility] Creatinine, Serum 0.76 0.5 - 1.4 mg/dL [facility] Estimated Glomerular Filt Rate >60 [facility] Comment:Chronic Kidney Disea se: Estimated GFR < 60 mL/min/1.10y9Splscy Kidney Disease: Estimated GFR < 15 mL/min/1.73m2 Glucose 146(H) 60 - 115 mg/dL [facility] Calcium 8.8 8.4 - 10.2 mg/dL [facility] Bilirubin, Total 1.7(H) 0.0 - 1.0 mg/dL [facility] Comment:Slight Icterus. Aspartate Amino Transferase 87(H) 5 - 31 U/L [facility] Alanine Aminotransferase 79(H) 0 - 31 U/L [facility] Total Protein 8.7(H) 6.5 - 8.0 g/dL [facility] Albumin Level 4.1 3.5 - 5.0 g/dL [facility] Alkaline Phosphatase 159(H) 39 - 117 U/L [facility] Blood Venous blood specimen / Unknown 06/02/2024 9:58 AM EST 06/02/2024 11:06 AM EST us You Rader MD LAB BLOOD ORDERABLES Final Result Performing Organization Address City/State/[facility] Co de Phone Number [facility] [address] [place] [phone] * BI Mammogram Screening Tomosynthesis Bilateral (05/16/2024 1:45 PM EST) Anatomical Region Laterality Modality Breast Bilateral Mammography 05/16/2024 1:45 PM EST Narrative 05/26/2024 5:10 PM EST ? [facility] ? [address] ?[place] [address] ? Mammography Report ? Signed ? Patient: Mc,Angella ?MR#: [id number] ?? 12 ? : 1945 ?Acct:[id number] ? Age/Sex: 79 / F ?ADM Date: 05/16/24 ? Loc: HO.MAMMO ? Attending Dr: You Martinez MD ? Ordering Physician: You Martinez MD ?Results: 0Incomplete: Needs Additional Imaging ?? Evaluation ? Date of Service: 05/16/24 ?Follow Up: Additional Imagi ?? ng ? Procedure(s): MM tomosynthesis screening BI ?? Accession Number(s): [id number] ? cc: You Martinez MD ? EXAMINATION: [...] ??Fernanda Hollis DO ??05/26/2024 05:07 PM EST ? Dictated By: ?Fernanda Hollis DO ? Signed By: ?<Electronically signed by Fernnada Hollis, DO in OV> ? 02/03/25 1707 ? DD/ 1345 ? TD/TT: 05/16/24 1410 ? Principal Scientist: ? Procedure Note Oh Vasquez - 05/26/2024 [facility] [address] [place] [address] Mammography Report Signed Patient: Vivienne Bentley AMR#: [id number] 12 : 1945cct:[id number] Age/Sex: 79 / FADM Date: 05/16/24 Loc: KATELIN.RUTHO Attending Dr: You Martinez MD Ordering Physician: You Martinez MD Results: 0Incomplete: Needs Additional Imaging Evaluation Date of Service: 05/16/24Follow Up: Additional Imagi ng Procedure(s): MM tomosynthesis screening BI Accession Number(s): [id number] cc: You Martinez MD EXAMINATION: MM SCREENING [...] Fernanda Hollis DO 05/26/2024 05:07 PM EST Dictated By: Fernanda Hollis DO Signed By: <Electronically signed by Fernanda Hollis DO in OV> 05/26/24 1707 DD/ 1345 TD/TT: 05/16/24 1410 Principal Scientist: us You Rader MD IMG BI PROCEDURES Fin al Result * POCT HGB A1C (04/08/2024 2:33 PM EST) Hemoglobin A1C 5.7 4.0 - 6.0 % QC Media Lot # [id number] Lot# Expiration Date [id number] Blood 04/08/2024 2:33 PM EST us You Rader MD POINT OF CARE TEST EN TER/EDIT ORDERABLES Final Result * POCT Glucose (04/08/2024 2:21 PM EST) Glucose Blood, POC 117 60 - 200 mg/dL QC Media Lot # [id number] Lot# Expiration Date ,[id number] Blood Capillary blood specimen / Unknown 04/08/2024 2:21 PM EST You Rader MD POINT OF CARE TEST EN TER/EDIT ORDERABLES Final Result * Hepatitis C Antibody with Reflex to HCV, RNA, Quantitative, Real-Time PCR (05/05/2022 9:23 AM EST) Hepatitis C Antibody NON-REACT LOUISE NON-REACT LOUISE [email or web address] Index <0.02 <1.00 [email or web address] Comment: HCV antibody was non-reactive. There is no laboratory evidence of HCV infection. In most cases, no further action is required. However, if recent HCV exposure is suspected, a test for HCV RNA (test code 28004) is suggested. For additional information please refer to http://education.[employer]/faq/VGH09l0 (This link is being provided for informational/ educational purposes only.) Blood Venous blood specimen / Unknown 05/05/2022 9:23 AM EST 05/05/2022 9:24 AM EST Narrative [facility] - 05/05/2022 10:22 PM EST FASTING:YES FASTING: YES You Rader MD LAB BLOOD ORDERABLES Final Result [facility] [address], [place] [address] [employer] [place] [employer] [address] [facility], ([address]) [place] [address] from Last 3 Months or Most Recently Relevant to Health Maintenance Insurance [facility] Care Teams Tableau Architect Relationship Specialty Start Date End Date You Bedolla MD [address] [place] [address] PCP - General Internal Medicine 05/27/14
--- OUTSIDE RECORDS SUMMARY | 2024-06-24 11:39 | XMS_ITS | Encounter Summary ---
Author Organization [employer] Address [address] [facility] 7[address] [place] [address] Care Team Providers Care Water Taxi Boat Mate Name Role Phone You Bedolla MD Primary Care Provide r Encounter Details Date Type Department Care Team ([facility] Contact Info) Description 08/30/2022 Telephone [facility] MEDICINE [address] [place] [address] [phone] Carrie Pickett RN Social History Tobacco Use [...] Upcoming Encounters Date Type Department Care Team ([facility] Contact Info) Description 07/08/2024 2:00 PM EDT Office Visit [facility] MEDICINE [address] [place] [phone] You Bedolla MD [address] [place], [place] [phone] 07/17/2024 3:30 PM EDT Office Visit [facility] ADULT DENTAL [address] [place] [address] Mau Macdonald DDS [address] [place] [address] documented as of this encounter Goals Goal Patient Goal Type Associated Problems Recent Progress Patient-Stated? Author Blood Pressure < 140/90 Blood Pressure Essential hypertension 140/84(2023 2:32 PM EST) Charles Underwood, PharmD documented as of this encounter Visit Diagnoses Not on filedocumented in this encounter Care Teams Water Taxi Boat Mate Relationship Specialty Start Date End Date You Bedolla MD [address] [place] [address] PCP - General Internal Medicine 05/27/14 documented as of this encounter
--- OUTSIDE RECORDS SUMMARY | 2024-06-24 11:39 | XMS_ITS ---
Author Organization [facility] Address [address] [place] [address] Care Team Providers Care Tankerman Name Role Phone Judith Rader MD, You Primary Care Provide [place] Mckeon [phone] ALLERGIES No Known Allergies REASON FOR VISIT [...] MG Oral for 30 Active VITAL SIGNS Blood pressure systolic 00 mm Hg 11/15/19 24 Blood pressure diastolic 00 mm Hg 024 Height 57.75 in 11/15/2023 Weight 166 lbs 11/15/2023 BMI 34.99 kg/m2 11/15/2023 Encounters Encounter Location Date [facility] [address] [place] [address] 11/15/2023 [place] Johns Cirrhosis K74.60 and Fatty [...] 01:20:00 PM, [address], [address], [place], [address], Progress Notes * Examination Category Sub-Category Detail [...]
--- OUTSIDE RECORDS SUMMARY | 2024-06-24 11:39 | XMS_ITS | Encounter Summary ---
Author Organization [employer] Address [address] [facility] 7t [place] [address] Care Team Providers Care Tire Technician Name Role Phone You Bedolla MD Primary Care Provide r Encounter Details Date Type Department Care Team (Late Contact Info) Description 06/23/2022 Abstract [facility] ADULT DENTAL [address] [place], [place] [phone] Madelyn Chaparro [address] [place] [address] Social History Tobacco Use Types Packs/Day Years [...] Description 07/08/2024 2:00 PM EDT Office Visit [facility] MEDICINE [address] [place] [address] You Bedolla MD 230 [place] [address] 07/17/2024 3:30 PM EDT Office Visit [facility] ADULT DENTAL [address] [place], [place] [phone] Mau Macdonald DDS [address] [place], [place] [phone] documented as of this encounter Visit Diagnoses Not on filedocumented in this encounter Care Teams Tire Technician Relationship Specialty Start Date End Date You Bedolla MD [address] [place], [place] [phone] PCP - General Internal Medicine 05/27/14 documented as of this encounter
--- OUTSIDE RECORDS SUMMARY | 2024-06-24 11:39 | XMS_ITS | Encounter Summary ---
Author Organization [facility] Address [address] [facility] 7t [place] [address] Care Team Providers Care Plasma Processor Name Role Phone You Bedolla MD Primary Care Provide r Reason for Visit * Reason Comments Med Refill Encounter Details Date Type Department Care Team ([facility] Contact Info) Description 08/31/[address] [facility] MEDICINE [address] [place] [address] Charles Myrick, PharmD [address] [place] [address] Social History Tobacco Use Types Packs/Day Years [...] Upcoming Encounters Date Type Department Care Team ([facility] Contact Info) Description 07/08/2024 2:00 PM EDT Office Visit [facility] MEDICINE [address] [place], [place] [phone] You Bedolla MD [address] [place], [place] [phone] 07/17/2024 3:30 PM EDT Office Visit [facility] ADULT DENTAL [address] [place], [place] [phone] Mau Macdonald DDS [address] [place], [place] [phone] documented as of this encounter Goals Goal Patient Goal Type Associated Problems Recent Progress Patient-Stated? Author Blood Pressure < 140/90 Blood Pressure Essential hypertension 140/84(2023 2:32 PM EST) Charles Underwood, PharmD documented as of this encounter Visit Diagnoses Not on filedocumented in this encounter Care Teams Plasma Processor Relationship Specialty Start Date End Date You Bedolla MD [address] [place], [place] [phone] PCP - General Internal Medicine 05/27/14 documented as of this encounter
--- OUTSIDE RECORDS SUMMARY | 2024-06-24 11:39 | XMS_ITS | Encounter Summary ---
Author Organization [employer] Address [address] [facility] 7t [place] [address] Care Team Providers Care Cosmetologist Name Role Phone You Bedolla MD Primary Care Provide r Encounter Details Date Type Department Care Team (Late Contact Info) Description 06/22/2022 Abstract [facility] ADULT DENTAL [address] [place] [address] Mau Macdonald DDS [address] [place] [address] Social History Tobacco Use Types Packs/Day Years [...] Description 07/08/2024 2:00 PM EDT Office Visit [facility] MEDICINE [address] [place] [address] You Bedolla MD [address] [place] [address] 07/17/2024 3:30 PM EDT Office Visit [facility] ADULT DENTAL [address] [place], [place] [phone] Mau Macdonald DDS [address] [place], [place] [phone] documented as of this encounter Visit Diagnoses Not on filedocumented in this encounter Care Teams Cosmetologist Relationship Specialty Start Date End Date You Bedolla MD [address] [place], [place] [phone] PCP - General Internal Medicine 05/27/14 documented as of this encounter
--- OUTSIDE RECORDS SUMMARY | 2024-06-24 11:39 | XMS_ITS | Encounter Summary ---
Author Organization [employer] [facility] Address [address] [place] [address] 7t h Floor [place] [phone] Care Team Providers Care Quality Assurance Supervisor Body Name Role Phone You Bedolla MD Primary Care Provide r Encounter Details Date Type Department Care Team (Latest Contact Info) Description 01/26/2022 Abstract [facility] CONVERSIONS Dental, Provider, DDS Social History Tobacco [...] Description 07/08/2024 2:00 PM EDT Office Visit [facility] MEDICINE [address] [place] [address] You Bedolla MD 230 [place] [address] 07/17/2024 3:30 PM EDT Office Visit [facility] ADULT DENTAL [address] [place] [address] Mau Macdonald DDS [address] [place] [address] documented as of this encounter Visit Diagnoses Not on filedocumented in this encounter Care Teams Quality Assurance Supervisor Body Relationship Specialty Start Date End Date You Bedolla MD [address] [place] [phone] PCP - General Internal Medicine 05/27/14 documented as of this encounter
--- OUTSIDE RECORDS SUMMARY | 2024-06-24 11:39 | XMS_ITS | Encounter Summary ---
Author Organization [employer] Address [address] [facility] 7t [place] [address] Care Team Providers Care Loss Prevention Supervisor Name Role Phone You Bedolla MD Primary Care Provide r Encounter Details Date Type Department Care Team (Late st Contact Info) Description 04/04/2022 Orders Only [facility] CHC MED & PEDS [address] [place] [address] Marci Francois LPN Social History Tobacco Use [...] 2:00 PM EDT Office Visit [facility] MEDICINE [address] [place] [address] You Bedolla MD [address] [place] [address] 07/17/2024 3:30 PM EDT Office Visit [facility] ADULT DENTAL [address] [place] [address] Mau Macdonald DDS [address] [place] [address] documented as of this encounter Procedures Procedure [...] (06/15/2022 3:01 PM EST) Color Urine Yellow [facility] Appearance Urine Clear [facility] PH 5.5 5.0 - 9.0 [facility] Glucose Urine UA >=1000(A) Negative mg/dL [facility] Urine Blood Negative Negative [facility] Specific [place] - Urine 1.015 1.005 - 1.025 [facility] Urine Protein Negative Neg-Trace mg/dL [facility] Urine Ketones Negative Negative mg/dL [facility] Nitrite Urine Negative Negative [facility] Leukocyte Esterase Urine Negative Negative [facility] RBC Urine 0-2 0 - 2 /HPF [facility] Urine WBC 0-5 0 - 5 /HPF [facility] Urine Squamous Epithelial Cell 0-2 0 - 2 /HPF [facility] Urine Bacteria None Seen None Seen [facility] Hyaline Casts, Urine 0-2 0 - 2 /LPF [facility] 06/15/2022 3:01 PM EST 06/15/2022 3:05 PM EST Narrative [facility] - 06/15/2022 3:22 PM EST [id number], Clean Catch [facility] External Provider LAB URI NE ORDERABLES Final Result [facility] [address] [place] [address] [phone] * (ABNORMAL) CBC auto differential (06/15/2022 2:59 PM EST) White Blood Count 8.6 4.8 - 10.8 X10*3/uL [facility] Red Blood Count 4.73 4.20 - 5.50 X10*6/uL [facility] Hemoglobin 13.4 12.0 - 16.0 g/dl [facility] Hematocrit 41.9 37.0 - 47.0 % [facility] Mean Corpuscular Volume 88.6 80.0 - 98.0 fL [facility] Mean Corpuscular Hemoglobin 28.3 27.0 - 33.0 pg [facility] Mean Corpuscular HGB Conc 32.0 31.0 - 35.0 g/dl [facility] Red Cell Distribution Width 13.9 11.0 - 16.0 % [facility] Platelet Count 111(L) 160 - 400 X10*3/uL [facility] Mean Platelet Volume 11.8 9.4 - 12.3 fL [facility] Neutrophils Percent Auto 74.0(H) 45 - 73 % [facility] Imm Gran Pct Auto 0.3 0.0 - 0.4 % [facility] Lymphocytes Percent Auto 13.4(L) 20 - 40 % [facility] Monocytes Percent Auto 11.5(H) 2 - 11 % [facility] Eosinophils Percent Auto 0.5 0 - 4 % [facility] Basophils Percent Auto 0.3 0 - 2 % [facility] NRBC Pct Auto 0.0 0.0 - 0.2 /100WBC [facility] Neutrophils Absolute Auto 6.3 2.0 - 8.3 x10*3/uL [facility] Imm Gran Abs Auto 0.03 0.00 - 0.03 X10*3/uL [facility] Lymphocytes Absolute Auto 1.2 1.2 - 4.9 X10*3/uL [facility] Monocytes Absolute Auto 1.0 0.1 - 1.2 X10*3/uL [facility] Eosinophils Absolute Auto 0.0 0.0 - 0.4 X10*3/uL [facility] Basophils Absolute Auto 0.0 0.0 - 0.2 X10*3/uL [facility] NRBC Abs Auto 0.000 0.0 - 0.012 X10*3/uL [facility] 06/15/2022 2:59 PM EST 06/15/2022 3:05 PM EST [facility] External Provider LAB BLO OD ORDERABLES Final Result [facility] [address] [place] [address] [phone] * COVID-19 ID NOW (LEPE) (06/15/2022 2:59 PM EST) IDNOW SERIAL# [id number] [facility] COVID-19 TEST Negative Negative [facility] Comment:TESTED BY: [id number] COVID-19 NOTE See Note [facility] Comment: Results are for the identification of SARS-CoV2 RNA. TheSARS-CoV2 RNA is generally detectable in respiratory samplesduring the acute phase of infection. Positive results areindicative of the presence of SARS-CoV-2 RNA; clinicalcorrelation with patient history and other diagnosticinformation is necessary to determine patient infectionstatus. Positive results do not rule out bacterial infectionor co- infection with other viruses.Testing facilities within the [facility] and [facility] are required to report all positive results [...] 2:59 PM EST 06/15/2022 3:05 PM EST [facility] Exter nal Provider LAB MOLECULAR DIAGNOSTICS ORDERABLES Final Result Performing Organization Address [facility] Co de Phone Number [facility] [address] [place] [phone] * HIGH SENSITIVITY TROPONIN I (06/15/2022 2:59 PM EST) [facility] TROPONIN I HIGH SENSITIVITY 16.9 <3.5 - 17.0 ng/L [facility] Comment:The [place] high sens itivity Troponin-I results should beused in conjunction with other diagnostic information suchas ECG, clinical observations and information, and patientsymptoms to aid in the diagnosis of [place]. 06/15/2022 2:59 PM EST 06/15/2022 3:05 PM EST [facility] External Provider LAB BLO OD ORDERABLES Final Result Performing Organization Address [facility] Co de Phone Number [facility] [address] [place] [address] [phone] * Influenza A B2 ID NOW (Lepe) (06/15/2022 2:59 PM EST) Pathologist [facility] IDNOW SERIAL# [id number] [facility] Influenza A Negative Negative [facility] Influenza B2 Negative Negative [facility] Influenza A B2 Note See Note [facility] Comment:The [place]pe ID NOW In [...] 2:59 PM EST 06/15/2022 3:05 PM EST [facility] Exter nal Provider LAB MICROBIOLOGY - GENERAL ORDERABLES Final Result Performing Organization Address [facility] Co de Phone Number [facility] [address] [place] [phone] * Lipase (06/15/2022 2:59 PM EST) Lipase 50 8 - 78 U/L [facility] 06/15/2022 2:59 PM EST 06/15/2022 3:05 PM EST [facility] External Provider LAB BLO OD ORDERABLES Final Result Performing Organization Address [facility] de Phone Number [facility] [address] [place] [phone] * Magnesium (06/15/2022 2:59 PM EST) Magnesium 1.9 1.6 - 2.6 mg/dL [facility] 06/15/2022 2:59 PM EST 06/15/2022 3:05 PM EST [facility] External Provider LAB BLO OD ORDERABLES Final Result Performing Organization Address [facility] Co de Phone Number [facility] [address] [place] [phone] * (ABNORMAL) Comprehensive Metabolic Panel (06/15/2022 2:59 PM EST) Sodium 143 135 - 145 mmol/L [facility] Potassium 3.9 3.3 - 5.1 mmol/L [facility] Chloride 109(H) 96 - 108 mmol/L [facility] Carbon Dioxide 24 22 - 29 mmol/L [facility] Anion Gap 14 12 - 20 [facility] Urea Nitrogen (BUN) 10 9 - 16 mg/dL [facility] Creatinine, Serum 0.95 0.5 - 1.4 mg/dL [facility] Creatinine Clr Calc Pharmacy 44.7 [facility] Comment:Provided height and weight: 152.4 cm,70.307 kg.eGFR (calculated from the MDRD study equation) and eCrCl(calculated from the Cockcroft-Gault equation) are based ondifferent parameters and may not yield comparable results.If eCrCl result is absurd, please check patient'sheight/weight. Estimated Glomerular Filt Rate 57 [facility] Comment:NOTE: For -Am erican individuals, multiply the result by 1.210.Chronic Kidney Disease: Estimated GFR < 60 mL/min/1.26o1Wywfji Kidney Disease: Estimated GFR < 15 mL/min/1.73m2 Glucose 201(H) 60 - 115 mg/dL [facility] Calcium 9.2 8.4 - 10.2 mg/dL [facility] Bilirubin, Total 0.9 0.0 - 1.0 mg/dL [facility] Aspartate Amino Transferase 49(H) 5 - 31 U/L [facility] Alanine Aminotransferase 50(H) 0 - 31 U/L [facility] Total Protein 7.6 6.5 - 8.0 g/dL [facility] Albumin Level 4.0 3.5 - 5.0 g/dL [facility] Alkaline Phosphatase 119(H) 39 - 117 U/L [facility] 06/15/2022 2:59 PM EST 06/15/2022 3:05 PM EST us [facility] External Provider LAB BLO OD ORDERABLES Final Result [facility] [address] [place] [address] [phone] documented in this encounter Visit Diagnoses Not on filedocumented in this encounter Care Teams Loss Prevention Supervisor Relationship Specialty Start Date End Date You Bedolla MD [address] [place] [phone] PCP - General Internal Medicine 05/27/14 documented as of this encounter
--- OUTSIDE RECORDS SUMMARY | 2024-06-24 11:39 | XMS_ITS | Encounter Summary ---
Author Organization [employer] Address [address] [facility] 7t [place] [address] Care Team Providers Care Toolroom Machinist Name Role Phone You Bedolla MD Primary [...] (Late st Contact Info) Description 07/25/2022 Telephone [facility] MEDICINE [address] [place] [address] You Bedolla MD [address] [place] [address] Letter for Housing (I called [...] Description 07/08/2024 2:00 PM EDT Office Visit [facility] MEDICINE [address] [place] [address] You Bedolla MD [address] [place] [address] 07/17/2024 3:30 PM EDT Office Visit [facility] ADULT DENTAL [address] [place] [address] Mau Macdonald DDS [address] [place] [address] documented as of this encounter Visit Diagnoses Not on filedocumented in this encounter Care Teams Toolroom Machinist Relationship Specialty Start Date End Date You Bedolla MD [address] [place] [address] PCP - General Internal Medicine 05/27/14 documented as of this encounter
--- OUTSIDE RECORDS SUMMARY | 2024-06-24 11:40 | XMS_ITS | Encounter Summary ---
Author Organization [facility] Address [address] [place] [address] Care Team Providers Care Prize Jacker Name Role Phone You Martinez Primary Care Provider + Encounter Details Date Type Department Care Team (Late st Contact Info) Description 07/23/2020 Orders Only [facility] CT Scan [address] [place], [place] [phone] Dylan White MD [address] [place], [place] [phone] Social History Tobacco Use Types Packs/Day Years [...] on filedocumented in this encounter Care Teams Prize Jacker Relationship Specialty Start Date End Date You Martinez [address] [place] [phone] PCP - General Internal Medicine 10/06/19 documented as of this encounter
--- OUTSIDE RECORDS SUMMARY | 2024-06-24 11:40 | XMS_ITS ---
Author Organization [facility] Address [address] [place] [address] Care Team Providers Care Skein Tier Name Role Phone Judith Rader MD, You Primary Care Provide Chico Mckeon [phone] Encounters Encounter Location Date Provider Diagnosis [facility] [address] [place] [address] 11/15/2023 Chico Johns PLAN OF TREATMENT Next Appt Details Provider Name:Chico Johns , 11/12/2024 01:20:00 PM, [address], [address], [place], [phone],
--- OUTSIDE RECORDS SUMMARY | 2024-06-24 11:40 | XMS_ITS | Encounter Summary ---
Author Organization [employer] Address [address] [place] [address] 7t [place] [address] Care Team Providers Care Immigration Judge Name Role Phone You Bedolla MD Primary Care Provide r Encounter Details Date Type Department Care Team (Late Contact Info) Description 09/28/2022 [facility] [employer] [facility] [address] [place], [place] [phone] You Bedolla MD [address] [place], [place] [phone] Social History Tobacco Use Types Packs/Day Years [...] 2:00 PM EDT Office Visit [facility] MEDICINE [address] [place], [place] [phone] You Bedolla MD [address] [place], [place] [phone] 07/17/2024 3:30 PM EDT Office Visit [facility] ADULT DENTAL [address] [place], [place] [phone] Mau Macdonald DDS [address] [place], [place] [phone] documented as of this encounter Goals Goal Patient Goal Type Associated Problems Recent Progress Patient-Stated? Author Blood Pressure < 140/90 Blood Pressure Essential hypertension 140/84(2023 2:32 PM EST) Charles Underwood, PharmD documented as of this encounter Visit Diagnoses Not on filedocumented in this encounter Care Teams Immigration Judge Relationship Specialty Start Date End Date You Bedolla MD [address] [place], [place] [phone] PCP - General Internal Medicine 05/27/14 documented as of this encounter
--- OUTSIDE RECORDS SUMMARY | 2024-06-24 11:40 | XMS_ITS | Encounter Summary ---
Author Organization [employer] Address [address] [facility] 7t [place] [address] Care Team Providers Care Head Wrestling Coach Name Role Phone You Bedolla MD Primary Care Provide r Encounter Details Date Type Department Care Team ([facility] st Contact Info) Description 02/22/2023 Telephone [facility] MEDICINE [address] [place] [address] You Bedolla MD [address] [place] [address] Social History Tobacco Use Types Packs/Day Years [...] Description 07/08/2024 2:00 PM EDT Office Visit [facility] MEDICINE [address] [place] [address] You Bedolla MD [address] [place] [address] 07/17/2024 3:30 PM EDT Office Visit [facility] ADULT DENTAL [address] [place] [address] Mau Macdonald DDS [address] [place] [address] documented as of this encounter Goals Goal Patient Goal Type Associated Problems Recent Progress Patient-Stated? Author Blood Pressure < 140/90 Blood Pressure Essential hypertension 140/84(2023 2:32 PM EST) No Charles Myrick, PharmD documented as of this encounter Visit Diagnoses Not on filedocumented in this encounter Care Teams Head Wrestling Coach Relationship Specialty Start Date End Date You Bedolla MD [address] [place] [address] PCP - General Internal Medicine 05/27/14 documented as of this encounter
--- OUTSIDE RECORDS SUMMARY | 2024-06-24 11:40 | XMS_ITS | Encounter Summary ---
Author Organization [employer] Address [address] [place] [address] 7t [place] [address] Care Team Providers Care Salvage Clerk Name Role Phone You Bedolla MD Primary Care Provide r Reason for Visit * Reason Comments Med Refill Encounter Details Date Type Department Care Team (Late Contact Info) Description 01/16/2023 Refill [facility] MEDICINE [address] [place] [address] [phone] You Bedolla MD [address] [place] [address] [phone] Low back pain at multiple sites Social [...] Description 07/08/2024 2:00 PM EDT Office Visit [facility] MEDICINE [address] [place] [address] [phone] You Bedolla MD [address] [place], [place] [phone] 07/17/2024 3:30 PM EDT Office Visit [facility] ADULT DENTAL [address] [place] [address] Mau Macdonald DDS [address] [place] [address] documented as of this encounter Goals Goal Patient Goal Type Associated Problems Recent Progress Patient-Stated? Author Blood Pressure < 140/90 Blood Pressure Essential hypertension 140/84(2023 2:32 PM EST) Charles Underwood, PercyD documented as of this encounter Visit Diagnoses Diagnosis Low back pain at multiple sites documented in this encounter Care Teams Salvage Clerk Relationship Specialty Start Date End Date You Bedolla MD [address] [place] [address] PCP - General Internal Medicine 05/27/14 documented as of this encounter
--- OUTSIDE RECORDS SUMMARY | 2024-06-24 11:40 | XMS_ITS | Encounter Summary ---
Author Organization [facility] Address [address] [place] [address] Care Team Providers Care Misdraw Hand Name Role Phone You Martinez Primary Care Provider + Encounter Details Date Type Department Care Team (Late st Contact Info) Description 07/23/2020 Orders Only [facility] Interventional Radiology [address] [place] [phone] Logan Hill MD [address] [place] [phone] Social History Tobacco Use Types Packs/Day Years [...] on filedocumented in this encounter Care Teams Misdraw Hand Relationship Specialty Start Date End Date You Martinez [address] [place] [phone] PCP - General Internal Medicine 10/06/19 documented as of this encounter
== END 2024-06-24 09:55 | disposition home or self-care (01) ==
LOC: HO.MAMMO 09:54
PROVIDERS: PCP Internal Medicine; Visit Provider Internal Medicine
DX: N64.89 Other specified disorders of breast (principal)
CPT/HCPCS: 76642; 77061; 77065

== ENCOUNTER → 2024-06-24 10:30 | Outpatient (BNV) | payer OTHER, SELFPAY | PROVIDERS: PCP Internal Medicine; Visit Provider Internal Medicine | DX: R92.322 Mammographic fibroglandular density, left breast (principal) | CPT/HCPCS: 76642; 77065; G0279 ==

== ENCOUNTER 2024-09-19 13:48 | Outpatient (REF) | payer OTHER, SELFPAY ==
--- NOTE | ~2024-09-19 | MM_ITS ---
EXAMINATION: DXA BONE DENSITY AXIAL HISTORY: osteoporosis TECHNIQUE: [employer] Dual energy absorptiometry (DEXA) of the lumbar spine, total left hip, and femoral neck was performed. COMPARISON: Comparison is made with the prior examination dated 03/30/2015. FINDINGS: The bone mineral density of the lumbar spine is 1.134, corresponding to a T-score of -0.4, and a Z-score of 1.2. This is indicative of normal bone mineral density. This represents a BMD change of 13.1% compared to the prior exam. This is statistically significant. The bone mineral density of the left total hip is 0.770, corresponding to a T-score of -1.9, and a Z-score of -0.1. This is indicative of osteopenia. This represents a BMD change of 1.7% compared to the prior exam. This is not statistically significant. The bone mineral density of the left femoral neck is 0.635, corresponding to a T-score of -2.9, and a Z-score of -1.0. This is indicative of osteoporosis. This represents a BMD change of -4.1% compared to the prior exam. FRACTURE RISK: The FRAX index suggests a ten year probability of major osteoporotic fracture of 12.5%, and of hip fracture 4.6%. MM/XR DEXA axial skeleton IMPRESSION: Based on bone mineral density, and according to World Health Organization (WHO) criteria, the diagnosis is consistent with osteoporosis. All bone density values are in grams per centimeter squared (g/cm2). Statistically, 68% of repeat scans fall within 1 SD (+/- 0.010 g/cm2 for AP spine L1-L4) and 1 SD (+/- 0.012 g/cm2 for femur total) FRAX is a trademark of the [employer] Metabolic Bone Disease, a World Health Organization (WHO) Collaborating Center. Electronically signed by: Chico Pollock MD 09/19/2024 02:52 PM EDT
--- OUTSIDE RECORDS SUMMARY | 2024-09-19 13:56 | XMS_ITS ---
Author Organization [facility] Address [address] [place] [address] Care Team Providers Care Inspector Wire Products Name Role Phone Judith Rader MD, You Primary Care Provide Chico Mckeon [phone] Allergies No Known Allergies REASON FOR VISIT Patient presents today for cirrhosis Medications Medication SIG (Take, Route, Frequency, Duration) Notes [...] HCl 100 MG Oral for 30 Active Vital Signs Blood pressure systolic 00 mm Hg 11/15/19 24 Blood pressure diastolic 00 mm Hg 024 Height 57.75 in 11/15/2023 Weight 166 lbs 11/15/2023 BMI 34.99 kg/m2 11/15/2023 Encounters Encounter Location Date Provider Diagnosis [facility] [address] [place] [address] 11/15/2023 Chico Johns Cirrhosis K74.60 and Fatty liver K76.0 Assessments Encounter Date Diagnosis (ICD Code) Assessment Notes Treatment Notes Treatment Clinical Notes Section Notes 11/15/2023 Cirrhosis (ICD-10 - K74.60) Overall, Jaren appears well and her liver disease remains well compensated at the present time. She does not appear to have developed any complications from her liver disease and there does not appear to have been any progression based on her exam, her history, and the laboratories. We did review the importance of trying to watch her diet, lose some weight, and getting better control of her serum lipids in regard to the fatty liver and preventing progression of her liver disease. I did advise her to be sure to speak with you about this, particularly her serum lipids. Her daughter describes that her mom is not always compliant With her medication. I shall send her a new prescription to get back on the ursodiol at 600 mg b.i.d. as she had been on this in the past without any adverse effects. I did advise her to be sure to call when she is on her last refill. I don't think she needs any imaging studies at this time given the 2 stable MRIs from last year. I shall check some followup laboratories including an alpha-fetoprotein level today. If things remain stable I will plan to see her in one year for a followup visit. I did advise her to call prior to that if she has any problems or questions I can be of assistance with. Jaren was comfortable with this plan. Thank you again for allowing me to participate in Jaren's care. I shall continue to keep you advised of her progress. 11/15/2023 Fatty liver (ICD-10 - K76.0) Overall, Jaren appears well and her liver disease remains well compensated at the present time. She does not appear to have developed any complications from her liver disease and there does not appear to have been any progression based on her exam, her history, and the laboratories. We did review the importance of trying to watch her diet, lose some weight, and getting better control of her serum lipids in regard to the fatty liver and preventing progression of her liver disease. I did advise her to be sure to speak with you about this, particularly her serum lipids. Her daughter describes that her mom is not always compliant With her medication. I shall send her a new prescription to get back on the ursodiol at 600 mg b.i.d. as she had been on this in the past without any adverse effects. I did advise her to be sure to call when she is on her last refill. I don't think she needs any imaging studies at this time given the 2 stable MRIs from last year. I shall check some followup laboratories including an alpha-fetoprotein level today. If things remain stable I will plan to see her in one year for a followup visit. I did advise her to call prior to that if she has any problems or questions I can be of assistance with. Jaren was comfortable with this plan. Thank you again for allowing me to participate in Jaren's care. I shall continue to keep you advised of her progress. Plan Of Treatment Medication Medication Name Sig Start Date Stop Date Notes Ursodiol 300 MG 2 Orally BID for 30 days 03/17/2020 Pending Test Test Name Order Date LIVER PROFILE 11/15/2023 CBC w DIFF 11/15/2023 ALPHA-FETOPROTEIN,TUMOR MARKER Prothrombin Time INR 11/15/2023 Liver Fibrosis Pnl 11/15/2023 Next Appt Details Follow Up: 1 Year, Reason: Provider Name:Chico Johns , 11/12/2024 01:20:00 PM, [address] [place] [address], [address], [place], [address], Progress Notes * JAREN BUI ADOB: (78 yo F)Acc No.[id number]:11/15/2023 Progress Notes Patient:?ANGEL BUI Provider:?Chico Johns MD :1945???Age:78 Y???Sex:Female D ate:11/15/2023 Address:[address] [place], [place] [id number] Pcp:You sanches MD Subjective: * Chief Complaints: * ???Patient presents today fo r cirrhosis * HPI: ???incontinence:? I saw Jaren in the office today for evaluation of her underlying history of cirrhosis in relation to fatty liver. She was accompanied by her daughter, Brigitte, who helped with interpreting. ?I last saw Jaren in October of 2022. Since that time she has been feeling well. She has not noticed any signs of jaundice, increasing abdominal girth, edema, pruritus, fatigue, confusion, nor any GI bleeding. She had been on ursodiol for many years but she desctibes that she apparently ran out earlier this year and did not call for refills. ?She did have a followup MRI of the abdomen in February describing her cirrhosis and the stable small 9 mm lesion in the right lobe of the liver. There was no evidence of any other lesions, biliary disease, splenomegaly, nor ascites. Laboratories as recently as April revealed a normal CBC with a platelet count of 149,000, normal chemistries and renal function, and a normal liver profile other than minimal elevation of the enzymes with an AST of 61, ALT of 58, and alkaline phosphatase of 126. She does have elevated serum lipids with a cholesterol of 267 and LDL cholesterol 190 in April. ?She enjoys a good appetite and denies any significant heartburn, dysphagia, early satiety, nausea, nor vomiting. Her bowel movements have been fairly regular brown without any hematochezia nor melena. * ROS:?General/Constitutional:?Change in appetite?denies.?Chills?denies.?Fatigue?denies.?Ophthalmologic:?Patient denies? Negative..?ENT:?Patient denies?Negative..?Respiratory:?Patient denies?No coughing/hemoptysis..?Cardiovascular:?Patient denies? No chest pain/orthopnea..?Gastrointestinal:?Comments?See HPI for details.?Genitourinary:?Patient denies? No dysuria/hematuria..?Incontinence?admits.?Musculoskeletal:?Patient denies? No specific arthralgias/myalgias..?Skin:?Patient denies?No rash/pruritus..?Neurologic:?Patient denies? No headaches/seizures..?Psychiatric:?Patient denies?Negative..?pt declines flu vaccine. * Medical History:? * Surgical History:?Tubal liga tion Benign breast biopsies * Hospitalization/Major Diagno stic Procedure:?No Hospitalization History. * Family History:?Father: dece ased.?Mother: , diagnosed with Diabetes.?Siblings: liver cancer.? She denies any family hx of colorectal cancer. Her brother had liver cancer. * Social History:?Tobacco Use:?Tobacco Use/Smoking?Are you a: nonsmoker.?Drugs/Alcohol:?Alcohol Screen?Points: 0, Interpretation: Negative.?Miscellaneous:?Marital status: . Occupation: unemployed. ???She is a former smoker, and does not use any significant amounts of alcohol. * Medications:?TakingoxyCODONE HCl 5 MG Tablet (Schedule II Drug) TAKE 1 TABLET BY MOUTH EVERY 8 HOURS NEEDED FOR PAIN Oral traZODone HCl 100 MG Tablet Oral Ursodiol 300 MG Capsule Oral Sertraline HCl 50 MG Tablet Oral Alendronate Sodium 70 MG Tablet Oral OneTouch Ultra - Strip In Vitro Valsartan-hydroCHLOROthiazide 160-25 MG Tablet Oral Metoprolol Tartrate 25 MG Tablet Oral Ursodiol 300 MG Capsule 2 Orally Twice a dayUrsodiol 300 MG Capsule 2 Orally Twice a dayAdvair Diskus Medication List reviewed and reconciled with the patientTaking oxyCODONE HCl 5 MG Tablet (Schedule II Drug) TAKE 1 TABLET BY MOUTH EVERY 8 HOURS NEEDED FOR PAIN Oral Taking traZODone HCl 100 MG Tablet Oral Taking Ursodiol 300 MG Capsule Oral Taking Sertraline HCl 50 MG Tablet Oral Taking Alendronate Sodium 70 MG Tablet Oral Taking OneTouch Ultra - Strip In Vitro Taking Valsartan-hydroCHLOROthiazide 160-25 MG Tablet Oral Taking Metoprolol Tartrate 25 MG Tablet Oral Taking Ursodiol 300 MG Capsule 2 Orally Twice a dayTaking Ursodiol 300 MG Capsule 2 Orally Twice a dayTaking Advair Diskus Medication List reviewed and reconciled with the patient * Allergies:?N.K.D.A.yes[Aller gies Verified] Objective: * Vitals:?Wt: 166 lbs, Ht: 57. 75 in, BMI:34.99 Index, BP: 00/00 mm Hg. * Examination: ???General Examination: ?GENERAL APPEARANCE:?pleasant, well nourished, well developed, in no acute distress he will.?EYES:?sclera non-icteric.?ORAL CAVITY:?mucosa moist.?NECK/THYROID:?no cervical lymphadenopathy, neck supple.?SKIN:?nonjaundiced, no spider angiomata..?HEART:?S1, S2 normal.?LUNGS:?clear to auscultation bilaterally.?ABDOMEN:?normal bowel sounds, no guarding or rigidity, no hepatosplenomegaly, no masses palpable, soft, nontender, nondistended..?EXTREMITIES:?no edema.?NEUROLOGIC:?alert and oriented.? Assessment: * Assessment: 1.?Cirrhosis - K74.60 (Prima ry)?2.?Fatty liver - K76.0? Overall, Jaren appears well and her liver disease remains well compensated at the present time. She does not appear to have developed any complications from her liver disease and there does not appear to have been any progression based on her exam, her history, and the laboratories. We did review the importance of trying to watch her diet, lose some weight, and getting better control of her serum lipids in regard to the fatty liver and preventing progression of her liver disease. I did advise her to be sure to speak with you about this, particularly her serum lipids. Her daughter describes that her mom is not always compliant With her medication. I shall send her a new prescription to get back on the ursodiol at 600 mg b.i.d. as she had been on this in the past without any adverse effects. I did advise her to be sure to call when she is on her last refill. I don't think she needs any imaging studies at this time given the 2 stable MRIs from last year. I shall check some followup laboratories including an alpha- fetoprotein level today. If things remain stable I will plan to see her in one year for a followup visit. I did advise her to call prior to that if she has any problems or questions I can be of assistance with. Jaren was comfortable with this plan. Thank you again for allowing me to participate in Jaren's care. I shall continue to keep you advised of her progress. Plan: * Treatment: 2.?Fatty liver?LAB: LIVER PROFILE ?LAB: CBC w DIFF ?LAB: ALPHA-FETOPROTEIN,TUMOR MARKER ?LAB: Prothrombin Time INR ?LAB: Liver Fibrosis Pnl 3.?Others? Refill Ursodiol Capsule, 300 MG, 2, Orally, BID, 30 days, 120, Refills 11.?? * Procedure Codes:?1036F TOBAC CO [id number] BP SCR NOT PRFRM REC REASON NOS * Preventive Medicine:? ??Counseling:?Care goal follow-up plan:?Above Normal BMI Follow-up?Giving encouragement to exercise,?BMI management provided?Yes.? ??Urinary Incontinence:?Urinary Incontinence?Assessment:?Absent,?Plan of care documented:?No, reason not specified.? ??Screenings:?Fall Risk Screening?Fall Risk Assessment:?One fall with injury in the past year,?Screening:?One fall with injury in the past year,?Assessment:?Not performed, no reason specified.? * Follow Up:?1 Year * * Sign off status: Completed true * Provider:?Chico Johns MD Date:? 024 Generated for Dharmesh anaya/Sis/Jakesmitting on:?09/19/2024 01:55 PM EDT History and Physical Notes * HPI (History of Present Illness) Category Sub-Category Detail Notes Category Not es incontinence I saw Jaren in the office today for evaluation of her underlying history of cirrhosis in relation to fatty liver. She was accompanied by her daughter, Brigitte, who helped with interpreting. I last saw Jaren in October of 2022. Since that time she has been feeling well. She has not noticed any signs of jaundice, increasing abdominal girth, edema, pruritus, fatigue, confusion, nor any GI bleeding. She had been on ursodiol for many years but she desctibes that she apparently ran out earlier this year and did not call for refills. She did have a followup MRI of the abdomen in February describing her cirrhosis and the stable small 9 mm lesion in the right lobe of the liver. There was no evidence of any other lesions, biliary disease, splenomegaly, nor ascites. Laboratories as recently as April revealed a normal CBC with a platelet count of 149,000, normal chemistries and renal function, and a normal liver profile other than minimal elevation of the enzymes with an AST of 61, ALT of 58, and alkaline phosphatase of 126. She does have elevated serum lipids with a cholesterol of 267 and LDL cholesterol 190 in April. She enjoys a good appetite and denies any significant heartburn, dysphagia, early satiety, nausea, nor vomiting. Her bowel movements have been fairly regular brown without any hematochezia nor melena. Examination Category Sub-Category Detail Notes Category Not es General Examination GENERAL APPEARANCE: pleasant , well [...]
== END 2024-09-19 13:49 | disposition home or self-care (01) ==
LOC: HO.MAMMO 13:48
PROVIDERS: PCP Internal Medicine; Visit Provider Internal Medicine
DX: M81.0 Age-related osteoporosis without current pathological fracture (principal)
CPT/HCPCS: 77080

== ENCOUNTER → 2024-09-19 14:30 | Outpatient (BNV) | payer OTHER, SELFPAY | PROVIDERS: PCP Internal Medicine; Visit Provider Radiology Diagnostic Radiology | DX: E28.39 Other primary ovarian failure (principal) | CPT/HCPCS: 77080 ==

== ENCOUNTER 2024-10-06 15:11 | Outpatient (AMB) | payer OTHER, SELFPAY ==
[2024-10-06 15:16] VITALS: BP 162/70; PULSE 88; O2SAT 96; BMI 34.3
--- NOTE | 2024-10-06 15:16 | A.OFFVIS_ITS ---
Vital Signs 10/06/24 15:16 Height 4 ft 9 in Weight 158 lb 11.725 oz BMI 34.3 BP 162/70 H Blood Pressure Location Lt brachial Position Sitting Pulse 88 Pulse Source Pulse Oximeter Pulse Oximetry (%) 96 Oxygen Delivery Method Room Air Intake Visit Reasons: cough Intake Note: pt is here for follow up and states she is feeling good, weather affects her breahting, please send in refills for albuterol hfa, and also wixela, albuterol for neb also. Allergies No Known Allergies Allergy (Mild, Verified 10/06/24 15:39) NONE Medication List - Last Reconciled 10/06/24 by Cuco Chowdhury MD albuterol sulfate 2.5 mg inhalation Q4-6H PRN albuterol sulfate 90 mcg/actuation 2 puffs inhalation Q6H PRN alendronate 1 tab PO QWEEK fluticasone propion-salmeterol 250-50 mcg/dose 1 ea PO BID hydrochlorothiazide 25 mg PO QAM metoprolol tartrate 1 tab PO BID sertraline 1 tab PO QAM solifenacin (Vesicare) 5 mg PO DAILY 30 days trazodone 1 tab PO BEDTIME ursodiol 2 caps PO BID valsartan 160 mg PO QAM Do you need a note to return to daycare/school/sports/work: No HPI HPI cough: Details: This 79 years old Ukrainian-speaking female very pleasant comes after 6 months for follow-up. She has chronic obstructive pulmonary disease with reactive airways and chronic cough. At present her cough is minimal and she takes cough medicine, NyQuil at night as needed Also continues to use Wixela 250-50 1 inhalation b.i.d. and albuterol just PRN. Overall has been very stable and currently seems to be at baseline, [facility] Medical History Allergic rhinitis COPD (chronic obstructive pulmonary disease) ILD (interstitial lung disease) Post-COVID chronic cough Cough Liver transplant candidate History of fatty infiltration of liver Depression GERD (gastroesophageal reflux disease) Elevated cholesterol HTN (hypertension) Cirrhosis Surgical History History of esophagogastroduodenoscopy (EGD) History of carpal tunnel release Hx of breast biopsy Hx of tubal ligation History of liver biopsy H/O colonoscopy Social History Are you a primary medicare coordinator to a significant other at home: No Do you presently have visiting nurse or other home services: No Comment: uses walker occasionally for balance Patient Tobacco Use Status: Former Tobacco user Review of Systems Const All systems reviewed & are unremarkable except as noted in HPI and below Eyes Reports no additional complaints ENT Reports no additional complaints, Denies nasal congestion and Denies nasal discharge Card Denies chest pain, Denies irregular heart rhythm and Denies leg edema Resp Reports as per HPI GI Reports no additional complaints Reports no additional complaints Musc Reports no additional complaints Skin/Breast Reports system reviewed and no additional complaints, except as documented Neuro Reports no additional complaints Psych Reports depression Endo Reports no additional complaints Physical Exam Vital Signs: Last Vital Signs Pulse 88 10/06/24 15:16 BP 162/70 H 10/06/24 15:16 Pulse Ox 96 10/06/24 15:16 Oxygen Delivery Method Room Air 10/06/24 15:16 BMI result Body Mass Index 34.3 Const General: comfortable (With intermittent cough), no acute distress, alert and awake Orientation/consciousness: patient oriented x3 HEENT Head: Yes normal to inspection General nose exam: No nasal polyps present and No nasal discharge present Face and sinus: Yes sinuses nontender and Yes other (HAS BILATERAL MODERATE NASAL CONGESTION) Mouth: oropharynx normal Throat: Yes posterior oropharynx normal Eyes General: appearance normal, both eyes and all related structures Neck Neck: Yes normal visual inspection, Yes no lymphadenopathy, Yes trachea midline and Yes no JVD Thyroid: Thyroid normal Chest Chest palpation & inspection: normal inspection of the chest, normal palpation of entire chest wall and no tenderness Resp Other: Percussion note is resonant, breath sounds are slightly distant. Both lungs are clear today , No wheezes or crepitations. Cardio Palpation: normal PMI Rate: regular rate Rhythm: regular rhythm Heart sounds: no gallops and no murmurs GI Palpation (GI): Soft to palpation, nontender, No hepatosplenomegaly present and no masses Auscultation: normal bowel sounds Back/Spine/Pelvis Thoracic/Lumbar Spine: thoracic and lumbar spine normal to inspection Skin General skin exam: no rashes or lesions noted Neuro General: patient oriented x3 and no focal motor deficits Cranial nerves: Yes CN's II-XII intact bilaterally Extrem General: Yes normal to inspection, Yes no clubbing, cyanosis or edema and Yes no calf tenderness Psych Appearance: grossly normal and well kempt Speech and movement: Normal speech and movement present Assessment & Plan Assessment & Plan (1) COPD (chronic obstructive pulmonary disease): Comment: She has only mild chronic obstructive pulmonary disorder, Main symptom is chronic cough and shortness of breath on exertion. Remains very stable . Code(s): J44.9 - Chronic obstructive pulmonary disease, unspecified Category: Medical Plan: Continue to use Wixela 250-50 1 inhalation b.i.d. And albuterol HFA 2 puffs Q 6 hours p.r.n.. (2) ILD (interstitial lung disease): Comment: On the chest x-ray and also on her chest CT scan in August 2020, there seems to be pulmonary scarring in the peripheral areas. 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 This residual ILD may be the reason for her ongoing cough . Code(s): J84.9 - Interstitial pulmonary disease, unspecified Category: Medical Plan: Treatment same as under COPD (3) Cough: Comment: She has chronic cough which started after the 2nd bout of COVID infection. I think this is due to residual fibrotic changes/Interstitial Lung disease and reactive airways At present her cough is minimal, and mostly at night. Code(s): R05.9 - Cough, unspecified Category: Medical Plan: Use NyQuil syrup 2 tsp at bedtime p.r.n. (4) Allergic rhinitis: Comment: PATIENT HAS BILATERAL NASAL CONGESTION AND I THINK SHE HAS IN SYMPTOMS OF ALLERGIC RHINITIS Code(s): J30.9 - Allergic rhinitis, unspecified Category: Medical Plan: May use loratadine 10 mg once a day p.r.n. for nasal congestion Coding Level of Care Code Est Pt Level 3 (45593) Diagnoses COPD (chronic obstructive pulmonary disease) J44.9 ILD (interstitial lung disease) J84.9 Cough R05.9 Allergic rhinitis J30.9
--- OUTSIDE RECORDS SUMMARY | 2024-10-06 17:01 | XMS_ITS ---
Author Organization [facility] Address [address] [place] [address] Care Team Providers Care Digital Editor Name Role Phone Judith Rader MD, You Primary Care Provide Chico Mckeon [phone] Allergies No Known Allergies REASON FOR VISIT [...] 11/15/2023 Encounters Encounter Location Date Provider Diagnosis [facility] [address] [place] [address] 11/15/2023 Chico Johns Cirrhosis K74.60 and Fatty [...] Provider Name:Chico Johns , 11/12/2024 01:20:00 PM, [address] [place] [address], [address], [place], [address], Progress Notes * JAREN BUI ADOB: (78 yo F)Acc No.[id number]:11/15/2023 Progress Notes Patient:?ANGEL BUI Provider:?Chico Johns MD :1945???Age:78 Y???Sex:Female D ate:11/15/2023 Address:[address] [place], [place] [id number] Pcp:You sanches MD Subjective: * Chief Complaints: [...] Refills 11.?? * Procedure Codes:?1036F TOBAC CO [id number] BP SCR NOT PRFRM REC REASON NOS [...] MD Date:? 024 Generated for Dharmesh anaya/Sis/Jakesmitting on:?10/06/2024 05:01 PM EDT History and Physical Notes * [...]
== END 2024-10-06 15:41 | disposition home or self-care (01) ==
LOC: HO.HPS 15:12
PROVIDERS: PCP Internal Medicine; Visit Provider Internal Medicine
DX: J44.9 Chronic obstructive pulmonary disease, unspecified (principal); J84.9 Interstitial pulmonary disease, unspecified; R05.9 Cough, unspecified; J30.9 Allergic rhinitis, unspecified
CPT/HCPCS: 99213

== ENCOUNTER → 2024-10-06 15:11 | Outpatient (BNVA) | payer OTHER, SELFPAY | PROVIDERS: PCP Internal Medicine; Visit Provider Internal Medicine | DX: R06.02 Shortness of breath (principal); R05.8 Other specified cough; J44.9 Chronic obstructive pulmonary disease, unspecified; J84.9 Interstitial pulmonary disease, unspecified; J30.9 Allergic rhinitis, unspecified | CPT/HCPCS: 99212 ==